=== PATIENT | male | born 1960 | race African-American/Black ===

== ENCOUNTER 2017-03-08 09:59 | Inpatient (IN) | payer OTHER ==
[2017-03-08 10:12] VITALS: BMI 25.1
--- NOTE | 2017-03-08 10:26 | PDOC ---
Attending Attestation - HPI HPI: 03/08/17 11:13 The patient is a 56 year old male from [facility] with a significant PMH of diabetes with associated neuropathy who presents to the emergency department with a ulcer to the right foot. The patient notes developing a pimple on his right foot a few weeks ago while in [facility]. He notes we was given Amoxicillin by his doctor in [facility]. The patient notes increased right lower leg swelling within the past week. He also reports having a fever a few days ago which has resolved upon presentation. The patient has been here in the [place] for about one week after coming from [facility]. Allergies: NKA - Physicial Exam PE: 03/08/17 12:08 GENERAL: Awake, alert, and fully oriented, in no acute distress HEAD: No signs of trauma EYES: PERRLA, EOMI, sclera anicteric, conjunctiva clear ENT: Auricles normal inspection, hearing grossly normal, nares patent, oropharynx clear without exudates. Moist mucosa NECK: Normal ROM, supple, no lymphadenopathy, JVD, or masses LUNGS: Breath sounds equal, clear to auscultation bilaterally. No wheezes, and no crackles HEART: (+) Tachycardic. Regular rate and rhythm, normal S1 and S2, no murmurs, rubs or gallops ABDOMEN: Soft, nontender, normoactive bowel sounds. No guarding, no rebound. No masses EXTREMITIES: (+) Right leg below knee hot, tender, cellulitic, erythematous, with pitting edema. (+) Wound on plantar surface underneath the right big toe with associated eschar that fell off after being soaked by home nurse, no drainage. (+) Wound to anterior aspect of right foot at first MTP with purulent drainage. (+) Destruction of tissue between first and second toes, foul smelling odor. (+) Left foot missing big toe secondary to diabetic foot infection. (+) Decreased sensation to toes secondary to diabetic neuropathy. Normal range of motion No clubbing or cyanosis. NEUROLOGICAL: Cranial nerves II through XII grossly intact. Normal speech. SKIN: Warm, Dry, normal turgor, no rashes or lesions noted. <Osmar Nj - Last Filed: 03/08/17 12:08> - Resident Resident Name: Rodriguez Toth - ED Attending Attestation I have performed the following: I have examined & evaluated the patient, The case was reviewed & discussed with the resident, I agree w/resident's findings & plan, Exceptions are as noted - Medical Decision Making 03/08/17 10:25 I, Dr. Sybil Neri, DO, attest that this document has been prepared under my direction and personally reviewed by me in its entirety. I further attest, that it accurately reflects all work, treatment, procedures and medical decision -making performed by me. 03/08/17 12:21 a/p: 56yo male with R foot diabetic foot wound -subjective fevers at home had amoxicillin in [place] -has been in [place] 6 [place] -drainage from wound -LE cellulitis from foot to knee -will start broad spectrum abx -will send cultures -will need admission 03/08/17 13:47 pt with poss osteo on xray diabetic foot wound will need admission for IV abx and further eval <Sybil Neri - Last Filed: 03/08/17 13:47>
[2017-03-08] MEDS ORDERED: PIPERACILLIN/TAZOB 3.375 GM/50 ML PRE-DOCKED IV ONE (11:12)
[2017-03-08] MEDS ORDERED: VANCOMYCIN 1,000 MG in DEXTROSE 5%-WATER - 250 ML IVPB ONE ×2 (11:13→22:45)
[2017-03-08] MEDS ORDERED: SODIUM CHLORIDE 0.9% 1000 ML INFUS.BAG IV ONE ×4 (11:34→13:51)
[2017-03-08] MEDS ORDERED: VANCOMYCIN 1 GRAM (PRE-DOCKED) 1,000 MG/250 ML BAG IVPB ONE (11:35)
[2017-03-08] MEDS ORDERED: PIPERACILLIN/TAZOB 3.375 GM 3.375 GM/50 ML BAG IVPB ONE (11:35)
[2017-03-08 11:50] LABS: BASO % 0.4 % (0-2.0); EOS % 0.9 % (0-4.5); HEMATOCRIT 35.4 % (35.4-49); HEMOGLOBIN 11.4 GM/dL (11.7-16.9); LYMPH % 23.9 % (8-40); MCH 25.7 pg (25.7-33.7); MCHC 32.2 g/dl (32.0-35.9); MEAN CELL VOLUME 79.8 fl (80-96); MEAN PLT VOLUME 7.9 fl (7.5-11.1); MONO % 7.4 % (3.8-10.2); NEUT % 67.4 % (42.8-82.8); PLATELET COUNT 290 K/MM3 (134-434); RBC 4.44 M/mm3 (4.00-5.60); RDW 13.3 % (11.9-15.9); WHITE BLOOD COUNT 9.3 K/mm3 (4.0-10.0)
--- NOTE | 2017-03-08 12:06 | PDOC ---
History of Present Illness - General Chief Complaint: Wound Infection Stated Complaint: FOOT ULCERS Time Seen by Provider: 03/08/17 10:17 History Source: Patient, Care Provider - History of Present Illness Initial Comments: 03/08/17 11:59 The patient is a 56M with a PMH of DM and HTN who presents to the ED with an infected wound. The care provider is translating and provides some of the history. She states that the patient had a pimple at the bottom of his foot around 3 weeks ago. He was given amoxicillin in [place] (moved here 1 week ago). Since then, he states that his foot has worsened. He has 2 sores on his foot. He has no other complaints. He denies CP, SOB, fever, chills, nausea, vomiting. Past History - Past Medical History Allergies/Adverse Reactions: Allergies Allergy/AdvReac Type Severity Reaction Status Date / Time No Known Allergies Allergy Verified 03/08/17 10:06 Home Medications: Ambulatory Orders Metformin HCl 500 mg PO BID 03/08/17 COPD: No Diabetes: Yes HTN: Yes - Suicide/Smoking/Psychosocial Hx Smoking History: Never smoked Information on smoking cessation initiated: No Hx Alcohol Use: No Drug/Substance Use Hx: No Substance Use Type: None Review of Systems - Review of Systems Able to Perform ROS?: Yes Comments:: 03/08/17 12:03 GENERAL/CONSTITUTIONAL: No fever or chills. No weakness. HEAD, EYES, EARS, NOSE AND THROAT: No change in vision. No ear pain or discharge. No sore throat. GASTROINTESTINAL: No nausea, vomiting, diarrhea, constipation, or abdominal pain. GENITOURINARY: No dysuria, frequency, hematuria, or change in urination. CARDIOVASCULAR: No chest pain, palpitations, or lightheadedness. RESPIRATORY: No cough, wheezing, shortness of breath, or hemoptysis. MUSCULOSKELETAL: No joint or muscle swelling or pain. No neck or back pain. SKIN: Positive for 2 ulcers on his R foot. NEUROLOGIC: No headache, numbness, tingling, weakness, loss of consciousness, or change in strength/sensation. ENDOCRINE: No increased thirst. No abnormal weight change. HEMATOLOGIC/LYMPHATIC: No anemia, easy bleeding, or history of blood clots. ALLERGIC/IMMUNOLOGIC: No hives or skin allergy. Is the patient limited Lao proficient: Yes *Physical Exam - Vital Signs Last Vital Signs Temp Pulse Resp BP Pulse Ox 97.9 F 90 19 165/117 100 03/08/17 10:03 03/08/17 10:03 03/08/17 10:03 03/08/17 10:03 03/08/17 10:03 - Physical Exam Comments: 03/08/17 12:03 GENERAL: Well developed, well nourished. Awake and alert. No acute distress. HEENT: Normocephalic, atraumatic. Hearing grossly normal. Moist mucous membranes. PERRLA, EOMI. No conjunctival pallor. Sclera are non-icteric. Oropharynx is clear. NECK: Supple. Full ROM. No JVD. CARDIOVASCULAR: Regular rate and rhythm. No murmurs, rubs, or gallops. Distal pulses are 2+ and symmetric. PULMONARY: No evidence of respiratory distress. Lungs clear to auscultation bilaterally. No wheezing, rales or rhonchi. ABDOMINAL: Soft. Non-tender. Non-distended. No rebound or guarding. No organomegaly. Normoactive bowel sounds. MUSCULOSKELETAL: Normal range of motion at all joints. No bony deformities or tenderness. EXTREMITIES: No cyanosis. No clubbing. No edema. No calf tenderness. SKIN: 1.5 cm stage 2 ulcer on plantar aspect of R foot. R foot warm to touch. Stage 1 ulcer on dorsal surface of R big toe. Vascularly intact. Warm and dry. Normal capillary refill. No rashes. No jaundice. NEUROLOGICAL: Alert, awake, appropriate. Decreased sensation in LE bilaterally. Cranial nerves 2-12 intact. Normal speech. Gait is normal without ataxia. PSYCHIATRIC: Cooperative. Good eye contact. Appropriate mood and affect. ED Treatment Course - LABORATORY CBC & Chemistry Diagram: 03/08/17 11:35 03/08/17 11:35 - ADDITIONAL ORDERS Additional order review: 03/08/17 11:35 RBC 4.44 MCV 79.8 L MCHC 32.2 RDW 13.3 MPV 7.9 Neutrophils % 67.4 Lymphocytes % 23.9 Monocytes % 7.4 Eosinophils % 0.9 Basophils % 0.4 - RADIOLOGY Radiology Studies Ordered: Category Date Time Status FOOT-RIGHT [RAD] Stat Radiology 03/08/17 11:12 Ordered - Medications Given in the ED: ED Medications Discontinued Medications Generic Name Dose Route Start Last Admin Trade Name Freq PRN Reason Stop Dose Admin Sodium Chloride 1,000 ml 03/08/17 11:34 03/08/17 11:44 Normal Saline - IV 03/08/17 11:35 1,000 ml ONCE ONE Administration Medical Decision Making - Medical Decision Making 03/08/17 12:06 The patient is a 56M with a PMH of DM and HTN who presents to the ED with 2 ulcers, one of which is at least stage 2 on the plantar surface of his R foot. He has a high likelihood of cellulitis. Will order labs, blood cx, and give broad spectrum abx. Will admit to med/surg once his labs come back. 03/08/17 13:[address] Mendoza accepts admission. Will continue to fluid resuscitate. *DC/Admit/Observation/Transfer Diagnosis at time of Disposition: Diabetic foot ulcer Qualifiers: Diabetic foot ulcer location: other Diabetes mellitus type: type 2 Laterality: right Non-pressure ulcer stage: with bone involvement without evidence of necrosis Qualified Code(s): E11.621 - Type 2 diabetes mellitus with foot ulcer - Discharge Dispostion Condition at time of disposition: Stable Admit: Yes - Referrals - Patient Instructions - Post Discharge Activity
[2017-03-08 12:14] LABS: ALBUMIN 3.2 g/dl (3.4-5.0); ALK PHOS 129 U/L (45-117); ANION GAP 7 (8-16); BILIRUBIN,TOTAL 0.4 mg/dL (0.2-1.0); BLOOD UREA NITROGEN 19 mg/dL (7-18); CALCIUM 8.6 mg/dL (8.5-10.1); CHLORIDE 93 mmol/L (98-107); CO2 28 mmol/L (21-32); CREATININE 1.3 mg/dL (0.7-1.3); POTASSIUM 5.5 mmol/L (3.5-5.1); SGOT/AST 18 U/L (15-37); SGPT/ALT 22 U/L (12-78); SODIUM 128 mmol/L (136-145); TOT PROT 8.7 g/dl (6.4-8.2)
[2017-03-08 12:26] LABS: GLUCOSE,RANDOM 457 mg/dL (74-106)
[2017-03-08] MEDS ORDERED: SODIUM CHLORIDE 1,000 ML IV STA (15:38)
--- NOTE | 2017-03-08 16:39 | HP ---
CHIEF COMPLAINT: PCP: None HISTORY OF PRESENT ILLNESS: The pt is speaks Creole. History is taken from family at bedside who translated the conversation. The pt is a 56 year old male with a PMH of DM II, diabetic neuropathy who presents to the hospital complaining of non healing wound in his right foot. He noticed small wound 3 weeks ago and was treated in [place] with Amoxicillin. He recently (week ago) came to [facility]. He states that he was not compliant with taking antibiotic. He had infection in left foot in the past (3 years) ago that resulted in amputation of left toe. The pt states that when he came from [facility] he experienced chills for one day. Today he is feeling well. He denies pain in lower extremities, fever, chills. He denies chest pain, palpitations, dizziness. ER course was notable for: (1)x ray of right foot (2)zosyn, vankomycin (3)ns Recent Travel: yes [place] week ago PAST MEDICAL HISTORY: DMII PAST SURGICAL HISTORY: left toe amputation 2013 Social History: Smoking:denies Alcohol:denies Drugs:denies Family History: Father:healthy, alive Mother: healthy, alive Allergies No Known Allergies Allergy (Verified 03/08/17 10:06) HOME MEDICATIONS: Home Medications Medication Instructions Recorded Metformin HCl 500 mg PO BID 03/08/17 REVIEW OF SYSTEMS CONSTITUTIONAL: Absent: fever, chills, diaphoresis, generalized weakness, malaise, loss of appetite, weight change HEENT: Absent: rhinorrhea, nasal congestion, throat pain, throat swelling, difficulty swallowing, mouth swelling, ear pain, eye pain, visual changes CARDIOVASCULAR: Absent: chest pain, syncope, palpitations, irregular heart rate, lightheadedness , peripheral edema RESPIRATORY: Absent: cough, shortness of breath, dyspnea with exertion, orthopnea, wheezing, stridor, hemoptysis GASTROINTESTINAL: Absent: abdominal pain, abdominal distension, nausea, vomiting, diarrhea, constipation, melena, hematochezia GENITOURINARY: Absent: dysuria, frequency, urgency, hesitancy, hematuria, flank pain, genital pain MUSCULOSKELETAL: Absent: myalgia, arthralgia, joint swelling, back pain, neck pain SKIN: Absent: rash, itching, pallor HEMATOLOGIC/IMMUNOLOGIC: Absent: easy bleeding, easy bruising, lymphadenopathy, frequent infections ENDOCRINE: Absent: unexplained weight gain, unexplained weight loss, heat intolerance, cold intolerance NEUROLOGIC: decreased sensation on right foot Absent: headache, focal weakness or paresthesias, dizziness, unsteady gait, seizure, mental status changes, bladder or bowel incontinence PSYCHIATRIC: Absent: anxiety, depression, suicidal or homicidal ideation, hallucinations. PHYSICAL EXAMINATION Vital Signs - 24 hr 03/08/17 03/08/17 10:03 15:00 Temperature 97.9 F Pulse Rate 90 Pulse Rate [ 91 H Radial] Respiratory 19 20 Rate Blood Pressure 165/117 Blood Pressure 162/99 [Left Arm] O2 Sat by Pulse 100 100 Oximetry (%) GENERAL: Awake, alert, and fully oriented, in no acute distress. HEAD: Normal with no signs of trauma. EYES: Pupils equal, round and reactive to light, extraocular movements intact, sclera anicteric, conjunctiva clear. No lid lag. EARS, NOSE, THROAT: Ears normal, nares patent, oropharynx clear without exudates. Moist mucous membranes. NECK: Normal range of motion, supple without lymphadenopathy, JVD, or masses. LUNGS: Breath sounds equal, clear to auscultation bilaterally. No wheezes, and no crackles. No accessory muscle use. HEART: Regular rate and rhythm, normal S1 and S2, systolic murmur over right sternal border, rub or gallop. ABDOMEN: Soft, nontender, not distended, normoactive bowel sounds, no guarding, no rebound, no masses. No hepatomegaly or splenomegaly. MUSCULOSKELETAL: Normal range of motion at all joints. No bony deformities or tenderness. No CVA tenderness. UPPER EXTREMITIES: 2+ pulses, warm, well-perfused. No cyanosis. No clubbing. No peripheral edema. LOWER EXTREMITIES: 2+ pulses, warm, well-perfused. No calf tenderness. 1+ peripheral edema, right foot: 1.5 ulcer on dorsum o right toe, flactuate, and 2 cm ulcer the bottom of right foot, near toe which is open, minimal draining with clear yellow fluid. No redness, no tenderness to palpation. NEUROLOGICAL: Normal speech, no facial asymmetry, normal gait, sensation decreased in rle, motor 5/5. PSYCHIATRIC: Cooperative. Good eye contact. Appropriate mood and affect. SKIN: Warm, dry, normal turgor, no rashes . Laboratory Results - last 24 hr 03/08/17 03/08/17 11:35 11:35 WBC 9.3 RBC 4.44 Hgb 11.4 L Hct 35.4 MCV 79.8 L MCH 25.7 MCHC 32.2 RDW 13.3 Plt Count 290 MPV 7.9 Neutrophils % 67.4 Lymphocytes % 23.9 Monocytes % 7.4 Eosinophils % 0.9 Basophils % 0.4 Sodium 128 L Potassium 5.5 H Chloride 93 L Carbon Dioxide 28 Anion Gap 7 L BUN 19 H Creatinine 1.3 Creat Clearance w eGFR 57.31 Random Glucose 457 H* Calcium 8.6 Total Bilirubin 0.4 AST 18 ALT 22 Alkaline Phosphatase 129 H Total Protein 8.7 H Albumin 3.2 L ASSESSMENT/PLAN: This is a 56 year old male with PMH of DM II and neuropathy who presented with diabetic ulcer and was found to have osteomyelitis. Osteomyelitis; -due to diabetic ulcer that was treated with Amoxicillin -wound culture ordered -Zosyn and Vancomycin-ID consulted -f/u blood cultures -X ray revealed osteomyelitis -continue NS at rate 100 cc/hr -contact isolation -MRI of right foot ordered -podiatry consultation ordered DM: -ISS ACHS -BGM ACHS -HGA1C -hold Metformin Hyponatremia: -will continue fluids, probably due to hyperglycemia Heart murmur: -will obtain ECHO Hypertension: found to have elevated BP in ER denies history of HTN will monitor DVT PPX: SCDs Heparin Sq Disposition: med surg Family friend Haleigh contact nr [phone] Problem List - Problem (1) Diabetic ulcer of ankle associated with diabetes mellitus due to underlying condition Code(s): E08.622 - DIABETES DUE TO UNDERLYING CONDITION W OTH SKIN ULCER; L97.309 - NON-PRESSURE CHRONIC ULCER OF UNSP ANKLE WITH UNSP SEVERITY (2) Diabetic foot ulcer Code(s): E11.621 - TYPE 2 DIABETES MELLITUS WITH FOOT ULCER; L97.509 - NON- PRESSURE CHRONIC ULCER OTH PRT UNSP FOOT W UNSP SEVERITY Qualifiers: Qualified Code(s): E11.621 - Type 2 diabetes mellitus with foot ulcer; L97.516 - Non-pressure chronic ulcer of other part of right foot with bone involvement without evidence of necrosis; L97.516 - Non-pressure chronic ulcer of other part of right foot with bone involvement without evidence of necrosis (3) Osteomyelitis Code(s): M86.9 - OSTEOMYELITIS, UNSPECIFIED Visit type - Emergency Visit Emergency Visit: Yes ED Registration Date: 03/08/17 Care time: The patient presented to the Emergency Department on the above date and was hospitalized for further evaluation of their emergent condition. - New Patient This patient is new to me today: Yes Date on this admission: 03/08/17 - Critical Care Critical Care patient: No
[2017-03-08] MEDS: SODIUM CHLORIDE 1,000 ML IV SCH (18:36)
[2017-03-08] MEDS: INSULIN SLIDING SCALE (NOVOLOG) 1 VIAL SQ SCH ×2 (18:36→22:59)
[2017-03-08] MEDS: HEPARIN NA (PORCINE) 5,000 UNITS/ML 1ML VIAL SQ SCH (18:38)
--- NOTE | 2017-03-08 18:43 | PN ---
Teaching Attending Note Name of Resident: Christiane Pretty ATTENDING PHYSICIAN STATEMENT I saw and evaluated the patient. I reviewed the resident's note and discussed the case with the resident. I agree with the resident's findings and plan as documented. SUBJECTIVE: 56 yom with PMHx of NIDDM (?Control), left great toe amputation 3 years ago, recently coming from [facility] comes with right foot swelling/redness/foul smelling discharge around right great toe and ulcer on plantar area that started as a pimple few weeks ago, when was prescribed amoxicillin but didnt really comply. Now here with worsening foot symptoms, subjective fevers, found with Blood glucose 400s and foot exam suggestive of abscess with cellulitis and xray suggestive of osteomyelitis. Patient currently denies pain, fevers. 12 point ROS done, neg for headache or visual symptoms, dizziness, dyspnea. OBJECTIVE: Vital Signs Period Temp Pulse Resp BP Sys/Borrero Pulse Ox Last 24 Hr 97.9 F 90-91 19-20 162-165/99-117 100-100 Intake & Output 03/05/17 03/06/17 03/07/17 03/08/17 23:59 23:59 23:59 23:59 Weight 170 lb GENERAL: Awake, alert, and fully oriented, in no acute distress. HEAD: Normal with no signs of trauma. EYES: Pupils equal, round and reactive to light, extraocular movements intact, sclera anicteric, conjunctiva clear. No lid lag. EARS, NOSE, THROAT: Ears normal, nares patent, oropharynx clear without exudates. Moist mucous membranes. NECK: Normal range of motion, supple without lymphadenopathy, JVD, or masses. LUNGS: Breath sounds equal, clear to auscultation bilaterally. No wheezes, and no crackles. No accessory muscle use. HEART: Regular rate and rhythm, normal S1 and S2 ABDOMEN: Soft, nontender, not distended, normoactive bowel sounds, no guarding, no rebound, no masses. No hepatomegaly or splenomegaly. MUSCULOSKELETAL: Normal range of motion at all joints. No bony deformities or tenderness. No CVA tenderness. extremities: LLE left great toe amputation RLE- fluctant swelling over right great toe with superficial ulceration with mild serosanguinous discharge with surrounding swelling extending over dorsu, of right foot, non on lower leg, skin excoriation over lower leg, also 2 cm stage I ulceration with scant foul smelling serosanguinous discharge on ball of right great toe, strong DP pulses bilaterally NEUROLOGICAL: Cranial nerves II-XII intact. Normal speech. PSYCHIATRIC: Cooperative. Good eye contact. Appropriate mood and affect. SKIN: Warm, dry, normal turgor, no rashes or lesions noted, normal capillary refill. Home Medication List Medication Instructions Recorded Confirmed Type Metformin HCl 500 mg PO BID 03/08/17 03/08/17 History Active Medications Generic Name Dose Route Start Last Admin Trade Name Imani PRN Reason Stop Dose Admin Heparin Sodium (Porcine) 5,000 unit 03/08/17 18:00 03/08/17 18:38 Heparin - SQ 5,000 unit Q8H-IV MONTEZ Administration Sodium Chloride 1,000 mls @ 100 mls/hr 03/08/17 15:45 03/08/17 18:36 Normal Saline - IV 100 mls/hr ASDIR MONTEZ Administration Insulin Aspart 1 vial 03/08/17 16:30 03/08/17 18:36 Novolog Vial Sliding Scale - SQ 10 units ACHS MONTEZ Administration Protocol Insulin Detemir 5 units 03/08/17 22:00 Levemir Vial SQ HS MONTEZ Laboratory Results - last 24 hr 03/08/17 03/08/17 03/08/17 11:35 11:35 18:00 WBC 9.3 RBC 4.44 Hgb 11.4 L Hct 35.4 MCV 79.8 L MCH 25.7 MCHC 32.2 RDW 13.3 Plt Count 290 MPV 7.9 Neutrophils % 67.4 Lymphocytes % 23.9 Monocytes % 7.4 Eosinophils % 0.9 Basophils % 0.4 Sodium 128 L Potassium 5.5 H Chloride 93 L Carbon Dioxide 28 Anion Gap 7 L BUN 19 H Creatinine 1.3 Creat Clearance w eGFR 57.31 POC Glucometer 392 Random Glucose 457 H* Calcium 8.6 Total Bilirubin 0.4 AST 18 ALT 22 Alkaline Phosphatase 129 H Total Protein 8.7 H Albumin 3.2 L CXR - no acute process Right foot xray - right foot air and swelling, cannot r/o osteomyelitis ASSESSMENT AND PLAN: 56 yom with NIDDM, comes with Right diabetic foot ulcer and cellulitis and likely osteomyelitis. -Diabetic foot ulcer with abscess/cellulitis, likely osteomyelitis -NIDDM, ?control -Uncontrolled HTN -Pseudohyponatremia -Hyperkalemia, suspect from severe hyperglycemia and extracellular shift Plan: zosyn/vancomycin, wound cultures. MRI right foot, ID consult Dr. Calle Podiatry consult Dr. Oconnell (office called) Blood cultures if fevers. Anticipate with need I&D with debridement +/- amputation. Monitor hemodynamics closely for now. ISS, check A1c, low dose levemir 5 units hs Aggressive hydration. Repeat BMP later today Monitor BP, add anti-hypertensives as indicated. No pain concerns currently. DVTPPX with heparin Dispo pending resolution of symptoms. Anticipate atleast 4-5 days total admit time spent 45 min.
[2017-03-08] MEDS ORDERED: FLU VACCINE QUAD 60 MCG/0.5 ML (MDV 17-18) IM ONE (19:30)
--- NOTE | 2017-03-08 21:20 | PN ---
Progress Note (short form) - Note Progress Note: Foul smelling infected DFU right foot with communication from dorsal abscess to plantar submetatarsal head one wound. Operative report dictated. Performed bedside incision and drainage and obtained pus for C & S. Performed procedure as this was an emergency and requested to do so but unable to continue care throughout this hospitalization as I am going away. Hospitalist service aware and was told he may need further debridement this week by another surgeon. Patient and situation currently stable at he time of this dictation and after the I and D.
[2017-03-08] MEDS ORDERED: PIPERACILLIN/TAZOB 4.5 GM 4.5 GM in DEXTROSE 5%-WATER - 100 ML IVPB ONE (22:45)
[2017-03-08] MEDS: INSULIN DETEMIR 100 UNITS/ML MDV SQ SCH (23:01)
[2017-03-09 01:54] LABS: ALBUMIN 2.6 g/dl (3.4-5.0); ALK PHOS 86 U/L (45-117); ANION GAP 6 (8-16); BILIRUBIN,TOTAL 0.3 mg/dL (0.2-1.0); BLOOD UREA NITROGEN 15 mg/dL (7-18); CALCIUM 8.1 mg/dL (8.5-10.1); CHLORIDE 103 mmol/L (98-107); CO2 29 mmol/L (21-32); CREATININE 1.2 mg/dL (0.7-1.3); GLUCOSE,RANDOM 150 mg/dL (74-106); POTASSIUM 4.9 mmol/L (3.5-5.1); SGOT/AST 11 U/L (15-37); SGPT/ALT 18 U/L (12-78); SODIUM 138 mmol/L (136-145)
[2017-03-09] MEDS: HEPARIN NA (PORCINE) 5,000 UNITS/ML 1ML VIAL SQ SCH ×3 (02:50→18:24)
[2017-03-09] MEDS: INSULIN SLIDING SCALE (NOVOLOG) 1 VIAL SQ SCH ×4 (06:41→21:25)
[2017-03-09] MEDS: SODIUM CHLORIDE 1,000 ML IV SCH ×2 (07:50→18:20)
[2017-03-09 08:20] LABS: BASO % 0.5 % (0-2.0); HEMATOCRIT 27.6 % (35.4-49); HEMOGLOBIN 8.8 GM/dL (11.7-16.9); LYMPH % 26.4 % (8-40); MCH 25.3 pg (25.7-33.7); MCHC 31.9 g/dl (32.0-35.9); MEAN CELL VOLUME 79.4 fl (80-96); MEAN PLT VOLUME 7.7 fl (7.5-11.1); MONO % 10.6 % (3.8-10.2); NEUT % 61.5 % (42.8-82.8); PLATELET COUNT 236 K/MM3 (134-434); RBC 3.48 M/mm3 (4.00-5.60); RDW 13.4 % (11.9-15.9); WHITE BLOOD COUNT 10.8 K/mm3 (4.0-10.0)
--- NOTE | 2017-03-09 08:44 | PN ---
Progress Note, Physician Chief Complaint: ID Full note dictated - Current Medication List Current Medications: Active Medications Heparin Sodium (Porcine) (Heparin -) 5,000 unit SQ Q8H-IV MONTEZ Last Admin: 03/09/17 02:50 Dose: 5,000 unit Sodium Chloride (Normal Saline -) 1,000 mls @ 100 mls/hr IV ASDIR MONTEZ Last Admin: 03/08/17 18:36 Dose: 100 mls/hr Insulin Aspart (Novolog Vial Sliding Scale -) 1 vial SQ ACHS MONTEZ PRN Reason: Protocol Last Admin: 03/09/17 06:41 Dose: Not Given Insulin Detemir (Levemir Vial) 5 units SQ HS MONTEZ Last Admin: 03/08/17 23:01 Dose: 5 units - Objective Vital Signs: Vital Signs Temperature 99.2 F 03/09/17 06:00 Pulse Rate 87 03/09/17 06:00 Respiratory Rate 18 03/09/17 06:00 Blood Pressure 122/96 03/09/17 06:00 O2 Sat by Pulse Oximetry (%) 100 03/08/17 21:00 Extremities: Yes: Other (Deep necrotic ulcerations wiath swelling warmth RLE) Labs: CBC, BMP 03/09/17 06:50 03/09/17 01:15 Assessment/Plan Microbiology Laboratory Tests 03/08/17 03/09/17 11:35 06:50 WBC 10.8 H Hgb 8.8 L D Plt Count 236 BUN 19 H Creatinine 1.3 Creat Clearance w eGFR 57.31 Total Protein 8.7 H Albumin 3.2 L Assessment Poorly controlled DM wit necrotic ulcerations of the right foot with cellulitis and underlying osteomyeltis Gas forming infection Plan Surgical evaluation for OR debridement Wound cultures CRP ESR HIV test Zosyn and metronidazole Luc VINSON
--- NOTE | 2017-03-09 09:35 | CONSULT ---
Consult - text type - Consultation Consultation Note: Patient seen in bed. Only speaks Cambodian. Patient admitted for infected right foot. Used interpeter. States he has been here for 1 week. Had a previous amputation on left big toe 3 years ago. Patient was admitted with a 457 glucose. Tmax 99.2 right foot grade 4-5 wound right foot, wbc 10.8, wound passes from dorsal to plantar, no drainage noted, +edema, xray reviewed no acute destructive changes noted, radiology recommended and has been ordered MRI. +mild foul odor OM? ganagarene gas? Discussed tx options with patient through associate professor of library science named Shakeel. Advised for debridement of bone and soft tissue with possible amoutation of toe. Wants to try conservative care of IVABX and local wound care till he speaks with his emergency contact. I have prepared consent form if patient decides they want to have debridement. Wound care betadine irrigation daily, xeroform gauze, and kerlix. Vascular consult, ID consult. Will follow. Read and appreciated Dr. Rain note. He Cultured wound right. Awaiting MRI. ESR , CRP and Hgba1c to be ordered.
--- NOTE | 2017-03-09 11:17 | PN ---
Progress Note (short form) - Note Progress Note: Vascular surgery Came to see pt in MRI Getting MRI at the moment. They are ruling out OM of great toe. Podiatry on the case for debridement and possible amputation. Will follow mri Thomas waterman dO
[2017-03-09] MEDS ORDERED: PT OWN MED DRAWER 7, Y5N ONE (12:28)
[2017-03-09] MEDS: PIPERACILLIN/TAZOB 4.5 GM 4.5 GM in DEXTROSE 5%-WATER - 100 ML IVPB SCH ×2 (12:35→21:21)
[2017-03-09] MEDS: METRONIDAZOLE 500 MG PREMIXED 500 MG/100 ML MG IVPB SCH ×3 (12:35→21:21)
--- NOTE | 2017-03-09 15:44 | PN ---
Teaching Attending Note Name of Resident: . ATTENDING PHYSICIAN STATEMENT Time of evaluation: 12:00 PM SUBJECTIVE: Patient seen and examined. No fevers/chills or new leg pain. OBJECTIVE: Vital Signs Period Temp Pulse Resp BP Sys/Borrero Pulse Ox Last 24 Hr 97.7 F-99.2 F 82-92 18-18 122-154/54-96 100-100 Intake & Output 03/06/17 03/07/17 03/08/17 03/09/17 23:59 23:59 23:59 23:59 Intake Total 750 600 Output Total 1300 Balance 750 -700 Weight 170 lb 6.4 oz General: sitting in bed in no acute distress Extremities: dressing, patient with incsion over dorum of great toe with foul smelling purulent discharge, mild bloody discharge at the incision site, overlying erythema and swelling till mid dorsum of the foot, Stage I ulcer with scant foul smelling purulent discahrge on ball of great toe, strong DP pulses, superficial ulceration heel of right foot Abdomen: soft, NT CVS;S1S2 regular Home Medication List Medication Instructions Recorded Confirmed Type Metformin HCl 500 mg PO BID 03/08/17 03/08/17 History Active Medications Generic Name Dose Route Start Last Admin Trade Name Freq PRN Reason Stop Dose Admin Heparin Sodium (Porcine) 5,000 unit 03/08/17 18:00 03/09/17 12:35 Heparin - SQ 5,000 unit Q8H-IV MONTEZ Administration Sodium Chloride 1,000 mls @ 100 mls/hr 03/08/17 15:45 03/09/17 07:50 Normal Saline - IV 100 mls/hr ASDIR MONTEZ Administration Piperacillin Sod/Tazobactam 100 mls @ 200 mls/hr 03/09/17 10:00 03/09/17 12: 35 Sod 4.5 gm/ Dextrose IVPB 200 mls/hr Q8H-IV MONTEZ Administration Protocol Metronidazole 500 mg in 100 mls @ 100 mls/hr 03/09/17 09:00 03/09/17 15:42 Flagyl 500mg Premixed Ivpb - IVPB 100 mls/hr Q6H-IV MONTEZ Administration Insulin Aspart 1 vial 03/08/17 16:30 03/09/17 12:34 Novolog Vial Sliding Scale - SQ Not Given ACHS MONTEZ Protocol Insulin Detemir 5 units 03/08/17 22:00 03/08/17 23:01 Levemir Vial SQ 5 units HS MONTEZ Administration Laboratory Results - last 24 hr 03/08/17 03/08/17 03/09/17 18:00 22:57 01:15 WBC RBC Hgb Hct MCV MCH MCHC RDW Plt Count MPV Neutrophils % Lymphocytes % Monocytes % Eosinophils % Basophils % ESR Sodium 138 Potassium 4.9 Chloride 103 D Carbon Dioxide 29 Anion Gap 6 L BUN 15 D Creatinine 1.2 Creat Clearance w eGFR > 60 POC Glucometer 392 94 Random Glucose 150 H D Hemoglobin A1c % Calcium 8.1 L Total Bilirubin 0.3 D AST 11 L D ALT 18 Alkaline Phosphatase 86 D C-Reactive Protein Total Protein 7.0 Albumin 2.6 L HIV 1&2 Antibody Screen HIV P24 Antigen 03/09/17 03/09/17 03/09/17 06:40 06:50 06:50 WBC 10.8 H RBC 3.48 L D Hgb 8.8 L D Hct 27.6 L D MCV 79.4 L MCH 25.3 L MCHC 31.9 L RDW 13.4 Plt Count 236 MPV 7.7 Neutrophils % 61.5 Lymphocytes % 26.4 Monocytes % 10.6 H Eosinophils % 1.0 Basophils % 0.5 ESR Sodium Potassium Chloride Carbon Dioxide Anion Gap BUN Creatinine Creat Clearance w eGFR POC Glucometer 150 Random Glucose Hemoglobin A1c % 12.6 H Calcium Total Bilirubin AST ALT Alkaline Phosphatase C-Reactive Protein Total Protein Albumin HIV 1&2 Antibody Screen HIV P24 Antigen 03/09/17 03/09/17 03/09/17 09:35 09:35 12:18 WBC RBC Hgb Hct MCV MCH MCHC RDW Plt Count MPV Neutrophils % Lymphocytes % Monocytes % Eosinophils % Basophils % ESR 127 H Sodium Potassium Chloride Carbon Dioxide Anion Gap BUN Creatinine Creat Clearance w eGFR POC Glucometer Random Glucose Hemoglobin A1c % Calcium Total Bilirubin AST ALT Alkaline Phosphatase C-Reactive Protein 11.9 H Total Protein Albumin HIV 1&2 Antibody Screen Negative HIV P24 Antigen Negative 03/09/17 12:33 WBC RBC Hgb Hct MCV MCH MCHC RDW Plt Count MPV Neutrophils % Lymphocytes % Monocytes % Eosinophils % Basophils % ESR Sodium Potassium Chloride Carbon Dioxide Anion Gap BUN Creatinine Creat Clearance w eGFR POC Glucometer 148 Random Glucose Hemoglobin A1c % Calcium Total Bilirubin AST ALT Alkaline Phosphatase C-Reactive Protein Total Protein Albumin HIV 1&2 Antibody Screen HIV P24 Antigen Microbiology 03/08/17 21:00 Foot - Right Dorsum Gram Stain - Final 03/08/17 18:50 Foot - Right Plantar Gram Stain - Final 03/08/17 11:34 Blood - Peripheral Venous Blood Culture - Preliminary NO GROWTH OBTAINED AFTER 24 HOURS, INCUBATION TO CONTINUE FOR 4 DAYS. 03/08/17 11:34 Blood - Peripheral Venous Blood Culture - Preliminary NO GROWTH OBTAINED AFTER 24 HOURS, INCUBATION TO CONTINUE FOR 4 DAYS. ASSESSMENT AND PLAN: 56 yom with NIDDM, comes with Right diabetic foot ulcer and cellulitis and likely osteomyelitis. -Diabetic foot ulcer with abscess/cellulitis/Great toe osteomyelitis -NIDDM, ?control -Uncontrolled HTN -Pseudohyponatremia -Hyperkalemia, suspect from severe hyperglycemia and extracellular shift, resolved Plan: s/p Emergent I&D by Dr. Rain yesterday, he is away this week. Dr. Murray consulted. ID input noted, zosyn/flagyl. WOund gm stain noted, discussed with Dr. Calle, will give 1 dose of vancomycin 1.5 g now. MRI right foot noted, ostemyelitis and gas forming organism,ID and podiatry updated on the results. Primary contact ivktoria called, discussed about current situation and patient waiting to speak to her to decide on surgical plans, need debridement and likely amputation great toe. She is coming in today, will follow up. Place on diabetic diet for now, NPO post midnight in case. Blood cultures if fevers. Monitor hemodynamics closely for now. ISS, check A1c, low dose levemir 5 units hs IVF. Repeat BMP later today Monitor BP, add anti-hypertensives as indicated. No pain concerns currently. DVTPPX with heparin Dispo pending resolution of symptoms.
[2017-03-09] MEDS ORDERED: VANCOMYCIN 1,500 MG in DEXTROSE 5%-WATER - 500 ML IVPB ONE (15:57)
--- NOTE | 2017-03-09 17:09 | EKG ---
Test Reason : Blood Pressure : / mmHG Vent. Rate : 085 BPM Atrial Rate : 085 BPM P-R Int : 138 ms QRS Dur : 068 ms QT Int : 340 ms P-R-T Axes : 055 024 031 degrees QTc Int : 404 ms NORMAL SINUS RHYTHM NONSPECIFIC T WAVE ABNORMALITY ABNORMAL ECG NO PREVIOUS ECGS AVAILABLE Confirmed by DARCY DONOVAN MD ([id number]) on 03/09/2017 5:09:05 PM Referred By: Confirmed By:DARCY DONOVAN MD
--- NOTE | 2017-03-09 18:05 | CONS ---
DATE OF CONSULTATION: DATE OF DICTATION: 03/09/2017 This is a 56-year-old Creole-speaking man from [facility] who I am asked to see for a diabetic soft tissue infection of his right foot. He apparently has a known history of type 2 diabetes with neuropathy and came to the emergency room complaining of a nonhealing wound on his right foot. He says he noticed this 3 weeks ago and was apparently treated in [facility] at that time with amoxicillin. He has no obvious fever or chills and does have a history of an infection in the left foot that resulted in amputation of a toe 3 years ago. According to the notes, he has had chills now for about a day and I am asked to see him after an extensive wound was noted on the right foot. He was given a dose of vancomycin, piperacillin, tazobactam by the admitting physicians. PAST MEDICAL HISTORY: As noted above. SOCIAL HISTORY: Denies drug use, alcohol. [place] immigrant. FAMILY HISTORY: Noncontributory. REVIEW OF SYSTEMS: All systems reviewed and noncontributory. PHYSICAL EXAMINATION: General: He was an alert male in no acute distress. Vital Signs: Temperature 99.2, pulse 87, blood pressure 122/96, respirations 18. Neck: Supple without adenopathy. Lungs: Clear to percussion and auscultation. Heart: S1, S2, regular rhythm without audible murmur. Abdomen: Soft, nontender, not distended. No guarding or rebound, hepatomegaly. Extremities: Revealed a warm, swollen right lower extremity with 2 ulcers, one on the ventral surface of the great toe as well as a 2-cm ulcer on the plantar right metatarsal area, both of which appear necrotic with foul-smelling drainage noted. The white count was 10.8 with hemoglobin 8.8, platelets of 236. BUN 19, creatinine 1.3, glucose 456. Alkaline phosphatase 129, total protein 8.7, albumin 3.2. X-ray of the chest shows no acute pathology. X-ray of the foot shows loss of bone density in the medial aspect distal 1st metatarsal, soft tissue disruption at the base of the metatarsals on the lateral view and soft tissue air noted. ASSESSMENT: Gas gangrene with 2 deep necrotic ulcers, obviously infected involving the right great toe and 1st metatarsal area. Gas-forming infection with probable polymicrobial organisms including anaerobes considered. Underlying osteomyelitis with cellulitis also likely. PLAN: The patient needs extensive OR debridement of the wounds and a surgical consult has been requested. He will be empirically treated with a combination of piperacillin, tazobactam and metronidazole. CRP, ESR and HIV testing should be performed and an MRI to confirm the diagnosis of osteomyelitis. BETTYE PADILLA M.D. HEIDE/[id number]
--- NOTE | 2017-03-09 19:43 | OP ---
DATE OF OPERATION: 03/08/2017 SURGEON : Dr. Kia Rain PROCEDURE: Bedside incision and drainage of an infected right diabetic foot ulceration. PREOPERATIVE DIAGNOSIS: Subfascial abscess right foot POSTOPERATIVE DIAGNOSIS: Subfascial abscess right foot. ANESTHESIA: None (patient insensate). CLINICAL INDICATIONS FOR PROCEDURE: The patient presented to the emergency department with a foul-smelling purulent right foot and an open plantar diabetic foot ulceration. The procedure is to evacuate as much pus as possible for adequate antimicrobial chemotherapy . PROCEDURE NARRATIVE: After prepping the patient in the usual manner, this procedure was performed at bedside. On the dorsal surface of the right great toe, there was pus exuding from the dorsal great toe. An incision was made into the purulent area. Communication was noted through the great toe into the plantar submetatarsal head one ulceration. All pus was evacuated. The wound was then copiously flushed with sterile water and iodoform packing was applied. DR. KIA RAIN RT/[id number] MTDD
[2017-03-09] MEDS: INSULIN DETEMIR 100 UNITS/ML MDV SQ SCH (21:25)
[2017-03-10] MEDS: SODIUM CHLORIDE 1,000 ML IV SCH (02:44)
[2017-03-10] MEDS: METRONIDAZOLE 500 MG PREMIXED 500 MG/100 ML MG IVPB SCH ×4 (02:45→21:15)
[2017-03-10] MEDS: PIPERACILLIN/TAZOB 4.5 GM 4.5 GM in DEXTROSE 5%-WATER - 100 ML IVPB SCH ×3 (02:45→17:56)
[2017-03-10] MEDS: HEPARIN NA (PORCINE) 5,000 UNITS/ML 1ML VIAL SQ SCH ×3 (02:45→18:00)
[2017-03-10] MEDS: INSULIN SLIDING SCALE (NOVOLOG) 1 VIAL SQ SCH ×4 (06:48→21:17)
[2017-03-10 08:23] LABS: BASO % 0.4 % (0-2.0); EOS % 1.7 % (0-4.5); HEMATOCRIT 28.6 % (35.4-49); HEMOGLOBIN 9.1 GM/dL (11.7-16.9); LYMPH % 33.2 % (8-40); MCH 25.5 pg (25.7-33.7); MCHC 31.8 g/dl (32.0-35.9); MEAN PLT VOLUME 7.7 fl (7.5-11.1); MONO % 10.4 % (3.8-10.2); NEUT % 54.3 % (42.8-82.8); PLATELET COUNT 251 K/MM3 (134-434); RBC 3.58 M/mm3 (4.00-5.60); RDW 13.2 % (11.9-15.9); WHITE BLOOD COUNT 8.5 K/mm3 (4.0-10.0)
[2017-03-10 08:31] LABS: ANION GAP 9 (8-16); BLOOD UREA NITROGEN 10 mg/dL (7-18); CALCIUM 7.6 mg/dL (8.5-10.1); CHLORIDE 105 mmol/L (98-107); CO2 26 mmol/L (21-32); MAGNESIUM 2.1 mg/dL (1.8-2.4); POTASSIUM 4.4 mmol/L (3.5-5.1); SODIUM 140 mmol/L (136-145)
[2017-03-10 08:34] LABS: CREATININE 1.2 mg/dL (0.7-1.3); GLUCOSE,RANDOM 157 mg/dL (74-106); PHOSPHOROUS 3.5 mg/dL (2.5-4.9)
--- NOTE | 2017-03-10 08:49 | PN ---
Physical Exam: SUBJECTIVE: Patient seen and examined by me at bedside. No overnight events noted. Patient yesterday gave consent on debridement with possible amputation. Compliance Auditor phone not working and was unable to get much information from patient. Will attempt to use epic ambulatory analyst phone again. OBJECTIVE: Vital Signs Period Temp Pulse Resp BP Sys/Borrero Pulse Ox Last 24 Hr 98.1 F-98.4 F 79-82 18-20 134-159/54-82 97 GENERAL: The patient is awake, alert, and fully oriented, in no acute distress. HEAD: Normal with no signs of trauma. NECK: Trachea midline, full range of motion, supple. LUNGS: Breath sounds equal, clear to auscultation bilaterally, no wheezes, no crackles, no accessory muscle use. HEART: Regular rate and rhythm without murmur, rub or gallop. ABDOMEN: Soft, nontender, nondistended, normoactive bowel sounds, no guarding, no rebound. EXTREMITIES: Dressing around right foot with purulent serosanguinous drainage. Laboratory Results - last 24 hr 03/09/17 03/09/17 03/09/17 06:50 09:35 09:35 WBC RBC Hgb Hct MCV MCH MCHC RDW Plt Count MPV Neutrophils % Lymphocytes % Monocytes % Eosinophils % Basophils % ESR POC Glucometer Hemoglobin A1c % 12.6 H C-Reactive Protein 11.9 H HIV 1&2 Antibody Screen Negative HIV P24 Antigen Negative 03/09/17 03/09/17 03/09/17 12:18 12:33 16:52 WBC RBC Hgb Hct MCV MCH MCHC RDW Plt Count MPV Neutrophils % Lymphocytes % Monocytes % Eosinophils % Basophils % ESR 127 H POC Glucometer 148 130 Hemoglobin A1c % C-Reactive Protein HIV 1&2 Antibody Screen HIV P24 Antigen 03/09/17 03/10/17 03/10/17 21:24 06:00 07:00 WBC 8.5 RBC 3.58 L Hgb 9.1 L Hct 28.6 L MCV 80.0 MCH 25.5 L MCHC 31.8 L RDW 13.2 Plt Count 251 MPV 7.7 Neutrophils % 54.3 Lymphocytes % 33.2 D Monocytes % 10.4 H Eosinophils % 1.7 Basophils % 0.4 ESR POC Glucometer 314 151 Hemoglobin A1c % C-Reactive Protein HIV 1&2 Antibody Screen HIV P24 Antigen Active Medications Generic Name Dose Route Start Last Admin Trade Name Freq PRN Reason Stop Dose Admin Heparin Sodium (Porcine) 5,000 unit 03/08/17 18:00 03/10/17 02:45 Heparin - SQ 5,000 unit Q8H-IV MONTEZ Administration Sodium Chloride 1,000 mls @ 100 mls/hr 03/08/17 15:45 03/10/17 02:44 Normal Saline - IV 100 mls/hr ASDIR MONTEZ Administration Piperacillin Sod/Tazobactam 100 mls @ 200 mls/hr 03/09/17 10:00 03/10/17 02: 45 Sod 4.5 gm/ Dextrose IVPB 200 mls/hr Q8H-IV MONTEZ Administration Protocol Metronidazole 500 mg in 100 mls @ 100 mls/hr 03/09/17 09:00 03/10/17 02:45 Flagyl 500mg Premixed Ivpb - IVPB 100 mls/hr Q6H-IV MONTEZ Administration Insulin Aspart 1 vial 03/08/17 16:30 03/10/17 06:48 Novolog Vial Sliding Scale - SQ 2 units ACHS MONTEZ Administration Protocol Insulin Detemir 5 units 03/08/17 22:00 03/09/17 21:25 Levemir Vial SQ Not Given HS MONTEZ ASSESSMENT/PLAN: Patient is a 56 year old male who presented for worsening right foot pain and ulceration. Patient was found to have osteomyelitis and admitted for further monitoring and management. Diabetic Foot Ulcer with Osteomyelitis of Right Great Toe -Emergent I&D on 03/08/17 -MRI revealed osteo with gas forming organisms. Patient initially refused surgical treatment but has now agreed to it -Will need debridement and likely amputation scheduled for tomorrow (03/11/17) -Continue Flagyl 500mg IVPB Q6H -Continue Zosyn 4.5mg ivpb q8h -Continue IV NS @100mls/hr DMII -A1C 12.6 -BGM -ISS, required 10 units in 24 hours -Levemir 5 units HS -Will need to be on Insulin upon discharge HTN -Patient currently undiagnosed with HTN -Has been elevated but currently controlled -Likely secondary to fluids vs. pain or component of both -Continue to monitor BP and if remains elevated will add on an agent Microcytic Anemia -Hemoglobin 11 to 9 since admission -Iron studies ordered -Continue to monitor CBC F/E/N -On IV NS @100mls/hr -Electrolytes wnl -Diabetic diet Prophylaxis -Moderate risk. Heparin 5000 units SQ Q8H for DVT -No GI required Disposition -Full code -Scheduled for debridement/amputation tomorrow 03/11/17. Will require another night of inpatient Visit type - Emergency Visit Emergency Visit: Yes ED Registration Date: 03/08/17 Care time: The patient presented to the Emergency Department on the above date and was hospitalized for further evaluation of their emergent condition. - New Patient This patient is new to me today: Yes Date on this admission: 03/10/17 - Critical Care Critical Care patient: No
[2017-03-10] MEDS ORDERED: PT OWN MED DRAWER 7, Y5N ONE (11:17)
[2017-03-10] MEDS ORDERED: INSULIN DETEMIR 100 UNITS/ML MDV SQ ONE (11:20)
[2017-03-10] MEDS ORDERED: INSULIN (NOVOLOG) ASPART 100 UNITS/ML 10ML VIAL ONE (11:20)
--- NOTE | 2017-03-10 14:03 | PN ---
Teaching Attending Note Name of Resident: Meghana Greene ATTENDING PHYSICIAN STATEMENT I saw and evaluated the patient. I reviewed the resident's note and discussed the case with the resident. I agree with the resident's findings and plan as documented. SUBJECTIVE:asymptomatic. has no pain in the foot. denies Cp, SOB, fever, chills , N/V/C/D OBJECTIVE: Last Vital Signs Temp Pulse Resp BP Pulse Ox 98.2 F 81 20 152/75 97 03/10/17 06:00 03/10/17 06:00 03/10/17 06:00 03/10/17 06:00 03/09/17 21:00 General NAD CV S1 S2 RRR no murmur/rub/gallop Lungs CTA B/L no wheezing/rales/rhonchi Abdomen soft NT/ND Extremities R foot wrapped. requested dressing not be changed as it was just done. +foul odor ASSESSMENT AND PLAN: 56 yo M with NIDDM, comes with Right diabetic foot ulcer and cellulitis and likely osteomyelitis. 1. R 1st digit OM with gas forming organism- asymptomatic. afebrile. pt initially refused surgery and was delayed. now pt is agreeable. NPO tonight for surgery tomorrow morning. on Flagyl/Zosyn day 2. ID, podiatry and vascular sugery on board. f/u cx 2. DM- uncontrolled. A1c 12.2. improved here. on levemir 5 units HS, iss. titrate to optimize control. nutritional teaching 3. Elevated BP - d/c IVF. monitor if remains elevated will need to start medication 4. hyperkalemia- resolved 5. pseudohyponatremia- resolved 6. DVT ppx- hep sq
[2017-03-10] MEDS: INSULIN DETEMIR 100 UNITS/ML MDV SQ SCH (21:17)
[2017-03-11] MEDS: HEPARIN NA (PORCINE) 5,000 UNITS/ML 1ML VIAL SQ SCH ×3 (03:06→17:44)
[2017-03-11] MEDS: PIPERACILLIN/TAZOB 4.5 GM 4.5 GM in DEXTROSE 5%-WATER - 100 ML IVPB SCH ×2 (03:06→10:50)
[2017-03-11] MEDS: METRONIDAZOLE 500 MG PREMIXED 500 MG/100 ML MG IVPB SCH ×2 (03:06→08:53)
[2017-03-11 06:06] LABS: SERUM IRON SATURATION 25 % (15-55); TOTAL IRON BINDING CAPACITY 164 ug/dL (250-450); UIBC 123 ug/dL (111-343)
[2017-03-11] MEDS: INSULIN SLIDING SCALE (NOVOLOG) 1 VIAL SQ SCH ×4 (06:41→23:17)
[2017-03-11 08:19] LABS: HEMOGLOBIN 10.1 GM/dL (11.7-16.9); MCH 25.4 pg (25.7-33.7); MCHC 31.6 g/dl (32.0-35.9); MEAN CELL VOLUME 80.4 fl (80-96); MEAN PLT VOLUME 7.4 fl (7.5-11.1); PLATELET COUNT 284 K/MM3 (134-434); RBC 3.98 M/mm3 (4.00-5.60); RDW 13.9 % (11.9-15.9); WHITE BLOOD COUNT 7.4 K/mm3 (4.0-10.0)
[2017-03-11 08:40] LABS: ANION GAP 10 (8-16); BLOOD UREA NITROGEN 9 mg/dL (7-18); CALCIUM 8.9 mg/dL (8.5-10.1); CHLORIDE 103 mmol/L (98-107); CO2 26 mmol/L (21-32); CREATININE 1.2 mg/dL (0.7-1.3); GLUCOSE,RANDOM 153 mg/dL (74-106); POTASSIUM 4.9 mmol/L (3.5-5.1); SODIUM 139 mmol/L (136-145)
[2017-03-11] MEDS ORDERED: BUPIVACAINE HCL/PF 0.5% (5MG/ML) 10 ML VIAL NR ONE (12:34)
[2017-03-11] MEDS ORDERED: LIDOCAINE HCL 1%, 10 MG/ML (20ML VIAL) NR ONE (12:34)
[2017-03-11] MEDS ORDERED: BACITRACIN 50,000 UNITS VIAL TP ONE (12:54)
--- NOTE | 2017-03-11 13:28 | PN ---
Progress Note, Physician Chief Complaint: ID Zosyn and metronidazole For OR today - Current Medication List Current Medications: Active Medications Heparin Sodium (Porcine) (Heparin -) 5,000 unit SQ Q8H-IV MONTEZ Last Admin: 03/11/17 09:06 Dose: Not Given Metronidazole (Flagyl 500mg Premixed Ivpb -) 500 mg in 100 mls @ 100 mls/hr IVPB Q6H-IV MONTEZ Last Admin: 03/11/17 08:53 Dose: 100 mls/hr Piperacillin Sod/Tazobactam (Sod 3.375 gm/ Dextrose) 100 mls @ 200 mls/hr IVPB Q6H-IV MONTEZ PRN Reason: Protocol Stop: 03/16/17 09:59 Insulin Aspart (Novolog Vial Sliding Scale -) 1 vial SQ ACHS MONTEZ PRN Reason: Protocol Last Admin: 03/11/17 10:50 Dose: Not Given Insulin Detemir (Levemir Vial) 5 units SQ HS MONTEZ Last Admin: 03/10/17 21:17 Dose: Not Given - Objective Vital Signs: Vital Signs Temperature 98.2 F 03/11/17 09:00 Pulse Rate 91 H 03/11/17 09:00 Respiratory Rate 18 03/11/17 09:00 Blood Pressure 169/96 03/11/17 09:00 O2 Sat by Pulse Oximetry (%) 100 03/10/17 21:00 Extremities: Yes: Other (Necrotic ulcers of the foot fould smelling Cellulitis) Labs: CBC, BMP 03/11/17 06:35 03/11/17 06:35 Assessment/Plan Microbiology Laboratory Tests 03/09/17 03/09/17 03/10/17 09:35 12:18 07:00 WBC Hgb Hct Plt Count ESR 127 H 99 H C-Reactive Protein 11.9 H 03/11/17 06:35 WBC 7.4 Hgb 10.1 L D Hct 32.0 L Plt Count 284 ESR C-Reactive Protein Assessment Diabetic foot ulcers polymicrobial as suspected on Zosyn which is fine Underlying osteomyelitis Plan Continue Zosyn alone Surgery today Luc VINSON
[2017-03-11 14:14] LABS: TRANSFERRIN 146 mg/dL (200-370)
[2017-03-11] MEDS: PIPERACILLIN/TAZOB 3.375 GM 3.375 GM in DEXTROSE 5%-WATER - 100 ML IVPB SCH ×2 (15:53→22:56)
--- NOTE | 2017-03-11 16:27 | PN ---
Teaching Attending Note Name of Resident: Leslie Logan ATTENDING PHYSICIAN STATEMENT I saw and evaluated the patient. I reviewed the resident's note and discussed the case with the resident. I agree with the resident's findings and plan as documented. SUBJECTIVE:states he has intermittent pain. unable to specify if at rest or on movement. dnies CP, SOB< fever, chills, N/V/CD OBJECTIVE: Last Vital Signs Temp Pulse Resp BP Pulse Ox 98.2 F 91 H 18 169/96 100 03/11/17 09:00 03/11/17 09:00 03/11/17 09:00 03/11/17 09:00 03/10/17 21:00 General NAD CV S1 S2 RRR no murmur/rub/gallop Lungs CTA B/L no wheezing/rales/rhonchi Abdomen soft NT/ND Extremities R foot with dorsum aspect with 2x3 cm ulcer with pus drainage below 2digit. 2nd digit has large ulceraction with boggy appearance along the medial aspect no crepitance. +active drainage. unable to palpate bone. pulses intact. ASSESSMENT AND PLAN: 56 yo M with NIDDM, comes with Right diabetic foot ulcer and cellulitis and likely osteomyelitis. 1. R 1st digit OM with gas forming organism-NPO for OR today for amputation. surgery delayed as pt initiatially refusing. Wcx showing polymicrobial. on Flagyl/Zosyn day 3. flagyl now d/c. will liekly require rat exterminator abx will need to speak with podiatry regarding margins on bx. ID, podiatry and vascular sugery on board. f/u cx 2. DM- uncontrolled. A1c 12.2. improved here. on levemir 5 units HS, iss. titrate to optimize control. nutritional teaching 3. HTN- consistently elevated BP. does not seem pain induced. start lisinopril 10mg 4. hyperkalemia- resolved 5. pseudohyponatremia- resolved 6. DVT ppx- hep sq
[2017-03-11 16:56] LABS: ERYTHROCYTE SEDIMENTATION RATE 100 mm/hr (0-20)
[2017-03-11 17:00] LABS: HEMATOCRIT 30.9 % (35.4-49); HEMOGLOBIN 10.1 GM/dL (11.7-16.9); MCH 26.1 pg (25.7-33.7); MCHC 32.8 g/dl (32.0-35.9); MEAN CELL VOLUME 79.7 fl (80-96); MEAN PLT VOLUME 7.7 fl (7.5-11.1); PLATELET COUNT 297 K/MM3 (134-434); RBC 3.87 M/mm3 (4.00-5.60); RDW 13.7 % (11.9-15.9); WHITE BLOOD COUNT 6.3 K/mm3 (4.0-10.0)
[2017-03-11] MEDS: LISINOPRIL 10 MG TABLET (FP) PO SCH (17:45)
[2017-03-11] MEDS ORDERED: ACETAMINOPHEN 325 MG TABLET (FP) PO PRN (18:20)
[2017-03-11] MEDS ORDERED: morphine CARPU-JECT 2 MG/1 ML DISP.SYRIN IVPUSH PRN (18:21)
--- NOTE | 2017-03-11 18:24 | PN ---
Physical Exam: SUBJECTIVE: Patient seen and examined. Pt c/o pain to Right great toe, but does not grimace upon palpation. Pt prepared for amputation procedure today. Pt denies chest pain, sob, fever, chills, nausea, vomiting, constipation, diarrhea. No events overnight. OBJECTIVE: Vital Signs Period Temp Pulse Resp BP Sys/Borrero Pulse Ox Last 24 Hr 97.7 F-98.5 F 74-91 18-20 153-169/83-98 100-100 GENERAL: The patient is awake, alert, and fully oriented, in no acute distress. LUNGS: Breath sounds equal, clear to auscultation bilaterally, no wheezes, no crackles, no accessory muscle use. HEART: Regular rate and rhythm, S1, S2 without murmur, rub or gallop. ABDOMEN: Soft, nontender, nondistended. EXTREMITIES: Right great toe dorsum aspect with 2 x 3 cm ulcer with drainage below 2nd digit. Ulceration to plantar aspect of foot with boggy appearance. No crepitus appreciated. 2+ pulses, warm, well-perfused, no edema. PSYCH: Normal mood, normal affect. SKIN: Warm, dry, normal turgor, no rashes Laboratory Results - last 24 hr 03/10/17 03/10/17 03/10/17 12:00 17:58 21:16 WBC RBC Hgb Hct MCV MCH MCHC RDW Plt Count MPV ESR Sodium Potassium Chloride Carbon Dioxide Anion Gap BUN Creatinine POC Glucometer 174 134 Random Glucose Calcium Iron 41 TIBC 164 L Iron Saturation 25 Transferrin 146 L C-Reactive Protein 03/11/17 03/11/17 03/11/17 06:35 06:35 06:40 WBC 7.4 RBC 3.98 L Hgb 10.1 L D Hct 32.0 L MCV 80.4 MCH 25.4 L MCHC 31.6 L RDW 13.9 Plt Count 284 MPV 7.4 L ESR Sodium 139 Potassium 4.9 Chloride 103 Carbon Dioxide 26 Anion Gap 10 BUN 9 Creatinine 1.2 POC Glucometer 158 Random Glucose 153 H Calcium 8.9 Iron TIBC Iron Saturation Transferrin C-Reactive Protein 03/11/17 03/11/17 14:10 14:10 WBC 6.3 RBC 3.87 L Hgb 10.1 L Hct 30.9 L MCV 79.7 L MCH 26.1 MCHC 32.8 RDW 13.7 Plt Count 297 MPV 7.7 ESR 100 H Sodium Potassium Chloride Carbon Dioxide Anion Gap BUN Creatinine POC Glucometer Random Glucose Calcium Iron TIBC Iron Saturation Transferrin C-Reactive Protein 6.6 H D Active Medications Generic Name Dose Route Start Last Admin Trade Name Freq PRN Reason Stop Dose Admin Heparin Sodium (Porcine) 5,000 unit 03/08/17 18:00 03/11/17 17:44 Heparin - SQ 5,000 unit Q8H-IV MONTEZ Administration Piperacillin Sod/Tazobactam 100 mls @ 200 mls/hr 03/11/17 15:00 03/11/17 15: 53 Sod 3.375 gm/ Dextrose IVPB 03/16/17 09:59 200 mls/hr Q6H-IV MONTEZ Administration Protocol Insulin Aspart 1 vial 03/08/17 16:30 03/11/17 17:44 Novolog Vial Sliding Scale - SQ Not Given ACHS MONTEZ Protocol Insulin Detemir 5 units 03/08/17 22:00 03/10/17 21:17 Levemir Vial SQ Not Given HS MONTEZ Lisinopril 10 mg 03/11/17 16:30 03/11/17 17:45 Prinivil PO 10 mg DAILY MONTEZ Administration IMAGIN03/11/17 Echo -> Left ventricular size, thickness, and function normal. ASSESSMENT/PLAN: 56yo M with PMH of NIDDM, presents with Right diabetic foot ulcer and cellulitis /osteomyelitis. # Right great toe osteomyelitis - s/p amputation - f/u with Podiatry regarding margins on biopsy - f/u wound culture - ID (Dr. Calle) recs appreciated: continue IV Zosyn only (Day 3) - pain management with Morphine prn and Tylenol prn # NIDDM - hgba1c 12.6 - BGMs - Novolog SSI - Levemir 5U HS - Dietary Consult # htn - Lisinopril 10mg started # FEN - Fluids: po - Electrolytes: wnl, continue to monitor - Nutrition: diabetic diet # Prophylaxis - DVT ppx with Heparin Visit type - Emergency Visit Emergency Visit: Yes ED Registration Date: 03/08/17 Care time: The patient presented to the Emergency Department on the above date and was hospitalized for further evaluation of their emergent condition. - New Patient This patient is new to me today: Yes Date on this admission: 03/11/17 - Critical Care Critical Care patient: No
[2017-03-11] MEDS: INSULIN DETEMIR 100 UNITS/ML MDV SQ SCH (23:17)
[2017-03-12] MEDS ORDERED: PROCHLORPERAZINE INJECTION 10 MG/2 ML VIAL IM PRN (01:32)
[2017-03-12] MEDS: HEPARIN NA (PORCINE) 5,000 UNITS/ML 1ML VIAL SQ SCH ×3 (01:50→17:25)
[2017-03-12] MEDS: PIPERACILLIN/TAZOB 3.375 GM 3.375 GM in DEXTROSE 5%-WATER - 100 ML IVPB SCH ×4 (02:04→22:32)
[2017-03-12] MEDS ORDERED: ONDANSETRON 4 MG/2 ML VIAL IVPUSH ONE (02:38)
[2017-03-12] MEDS: INSULIN SLIDING SCALE (NOVOLOG) 1 VIAL SQ SCH ×4 (06:25→22:44)
[2017-03-12 09:14] LABS: HEMOGLOBIN 9.9 GM/dL (11.7-16.9); MCH 25.3 pg (25.7-33.7); MEAN CELL VOLUME 79.2 fl (80-96); MEAN PLT VOLUME 7.4 fl (7.5-11.1); PLATELET COUNT 301 K/MM3 (134-434); RBC 3.91 M/mm3 (4.00-5.60); RDW 13.9 % (11.9-15.9); WHITE BLOOD COUNT 10.2 K/mm3 (4.0-10.0)
[2017-03-12] MEDS: LISINOPRIL 10 MG TABLET (FP) PO SCH (11:12)
--- NOTE | 2017-03-12 14:52 | PN ---
Teaching Attending Note Name of Resident: Leslie Logan ATTENDING PHYSICIAN STATEMENT I saw and evaluated the patient. I reviewed the resident's note and discussed the case with the resident. I agree with the resident's findings and plan as documented. SUBJECTIVE:c/o pain at surgical site. denies CP, SOB, fever, chills, N/V/C/D OBJECTIVE: Last Vital Signs Temp Pulse Resp BP Pulse Ox 98.1 F 82 18 150/90 99 03/12/17 10:00 03/12/17 10:00 03/12/17 13:44 03/12/17 10:00 03/12/17 13:44 General NAD Extremities R foot wrapped in dressing c/d/i ASSESSMENT AND PLAN: 56 yo M with NIDDM, comes with Right diabetic foot ulcer and cellulitis and likely osteomyelitis. 1. R 1st digit OM with gas forming organism-s/p 1st digit amputation 03/11. encouraged to request pain medication as available. await cx. speak with podiatry about need for shelter abx therapy. on Zosyn day 4. f/u cx 2. DM- A1c 12.2. improved here. on levemir 5 units HS, iss. titrate to optimize control. nutritional teaching 3. HTN-above goal. start norvasc. cont lisinopril. titrate to optimize control 4. hyperkalemia- resolved 5. pseudohyponatremia- resolved 6. DVT ppx- hep sq
[2017-03-12] MEDS ORDERED: PT OWN MED DRAWER 7, Y5N ONE (16:09)
[2017-03-12] MEDS: amLODIPine BESYLATE 5 MG TABLET (FP) PO SCH (16:29)
--- NOTE | 2017-03-12 16:52 | MSN ---
Progress Note (short form) - Note Progress Note: Subjective: Yudy Ybarra is a 56 year old male with past medical history of diabetes who presented to the ED with right foot ulcer. Patient was admitted for right foot abscess with cellulitis and possible osteomyelitis. Patient seen and examined. Patient states that last night he had 4 episodes of vomiting s/p great toe amputation. Patient reports green emesis without any blood. He states that the last episode of vomiting was at 4am. The vomiting resolved after he was given zofran and Compazine. Patient states that he is currently feeling better. Patient reports pain in the right foot due to surgery. Patient also reports pain in the left lateral heel but state's it has been chronic. Patient currently denies nausea, headache, chest pain, palpitations, SOB, dizziness. Objective: Last Vital Signs Temp Pulse Resp BP Pulse Ox 98.3 F 82 16 140/70 99 03/12/17 15:33 03/12/17 15:33 03/12/17 15:33 03/12/17 15:33 03/12/17 13:44 Physical Exam: Gen: A&Ox3, well-appearing, in no acute distress Heart: RRR without MRG Lungs; CTA bilaterally without RRW Abdomen: soft, non-tender, non-distended, bowel sounds present and normoactive Extremities: no pitting edema in bilateral lower extremities Right lower extremity: warm to touch, R foot wrapped in dressing due to right great toe amputation yesterday Left lower extremity: DP pulse palpable and 2+, left great toe amputated a long time ago, no ulcers noted on left foot, plantar aspect of the foot very dry , no discoloration Laboratory Results - last 24 hr 03/11/17 03/11/17 03/11/17 14:10 17:44 23:16 WBC 6.3 RBC 3.87 L Hgb 10.1 L Hct 30.9 L MCV 79.7 L MCH 26.1 MCHC 32.8 RDW 13.7 Plt Count 297 MPV 7.7 ESR 100 H POC Glucometer 137 242 03/12/17 03/12/17 03/12/17 06:10 07:10 11:25 WBC 10.2 H D RBC 3.91 L Hgb 9.9 L Hct 31.0 L MCV 79.2 L MCH 25.3 L MCHC 32.0 RDW 13.9 Plt Count 301 MPV 7.4 L ESR POC Glucometer 222 195 Current Medications Generic Name Dose Route Start Last Admin Trade Name Freq PRN Reason Stop Dose Admin Acetaminophen 650 mg 03/11/17 18:20 03/11/17 20:47 Tylenol - PO 650 mg Q4H PRN Administration FEVER OR PAIN Amlodipine Besylate 5 mg 03/12/17 14:00 03/12/17 16:29 Norvasc - PO 5 mg DAILY MONTEZ Administration Heparin Sodium (Porcine) 5,000 unit 03/08/17 18:00 03/12/17 11:12 Heparin - SQ 5,000 unit Q8H-IV MONTEZ Administration Piperacillin Sod/Tazobactam 100 mls @ 200 mls/hr 03/11/17 15:00 03/12/17 16: 29 Sod 3.375 gm/ Dextrose IVPB 03/16/17 09:59 200 mls/hr Q6H-IV MONTEZ Administration Protocol Insulin Aspart 1 vial 03/08/17 16:30 03/12/17 11:32 Novolog Vial Sliding Scale - SQ 2 units ACHS MONTEZ Administration Protocol Insulin Detemir 5 units 03/08/17 22:00 03/11/17 23:17 Levemir Vial SQ 5 units HS MONTEZ Administration Lisinopril 10 mg 03/11/17 16:30 03/12/17 11:12 Prinivil PO 10 mg DAILY MONTEZ Administration Morphine Sulfate 2 mg 03/11/17 18:21 03/12/17 11:13 Morphine Injection - IVPUSH 2 mg Q4H PRN Administration PAIN Prochlorperazine Edisylate 5 mg 03/12/17 01:32 03/12/17 01:50 Compazine Injection - IM 5 mg Q4H PRN Administration NAUSEA AND/OR VOMITING Home Medications Medication Instructions Recorded Metformin HCl 500 mg PO BID 03/08/17 A/P: Yudy Ybarra is a 56 yo M with PMHx of DM who presented to the ED with right foot ulcer. Patient was admitted for right foot abscess with cellulitis and possible osteomyelitis. 1. Right great toe wound with osteomyelitis - R toe wound secondary to DM, with osteomyelitis - Wound culture was positive for Morganella, Proteus, Group D strep, Presumptive MSSA, Strep viridans - Patient is now s/p right great toe amputation, POD 1, dressing will be changed today - Zosyn Q6H 100mls @200 mls/hr- Day 4 - Pain control with Morphine and Tylenol 650 mg PRN - Wound culture negative for growth after surgery - Will talk to podiatry about mcc antibiotics - Patient currently does not have insurance, will need to consider that when deciding on antibiotic therapy 2. DM - Hold Metformin - Levemir 5U HS - Novolog 1 vial SQ - BGM - Currently on DM diet 3. HTN - Patient denies history of HTN, but BP has been consistently elevated - Lisinopril 10 mg PO daily was started yesterday, BP still elevated today - Will add Norvasc 5 mg - Continue to monitor BP 4. DVT Porph - Heparin 5000U SQ TID Dispo: Will continue to monitor.
--- NOTE | 2017-03-12 18:57 | PN ---
Physical Exam: SUBJECTIVE: Patient seen and examined. Pt c/o pain at surgical site on Right foot. Pt denies chest pain, sob, abdominal pain, fever, chills, constipation, diarrhea. Pt was vomiting overnight, relieved with Compazine. OBJECTIVE: Vital Signs Period Temp Pulse Resp BP Sys/Borrero Pulse Ox Last 24 Hr 97.7 F-98.6 F 70-82 16-20 135-155/70-91 99-100 GENERAL: The patient is awake, alert, and fully oriented, in no acute distress. LUNGS: Breath sounds equal, clear to auscultation bilaterally, no wheezes, no crackles, no accessory muscle use. HEART: Regular rate and rhythm, S1, S2 without murmur, rub or gallop. ABDOMEN: Soft, nontender, nondistended. EXTREMITIES: Right foot wrapped in dressing CDI. Left LE warm, well-perfused, no edema. PSYCH: Normal mood, normal affect. SKIN: Warm, dry, normal turgor, no rashes Laboratory Results - last 24 hr 03/11/17 03/12/17 03/12/17 23:16 06:10 07:10 WBC 10.2 H D RBC 3.91 L Hgb 9.9 L Hct 31.0 L MCV 79.2 L MCH 25.3 L MCHC 32.0 RDW 13.9 Plt Count 301 MPV 7.4 L POC Glucometer 242 222 03/12/17 03/12/17 11:25 17:23 WBC RBC Hgb Hct MCV MCH MCHC RDW Plt Count MPV POC Glucometer 195 133 Active Medications Generic Name Dose Route Start Last Admin Trade Name Freq PRN Reason Stop Dose Admin Acetaminophen 650 mg 03/11/17 18:20 03/11/17 20:47 Tylenol - PO 650 mg Q4H PRN Administration FEVER OR PAIN Amlodipine Besylate 5 mg 03/12/17 14:00 03/12/17 16:29 Norvasc - PO 5 mg DAILY MONTEZ Administration Heparin Sodium (Porcine) 5,000 unit 03/08/17 18:00 03/12/17 17:25 Heparin - SQ 5,000 unit Q8H-IV MONTEZ Administration Piperacillin Sod/Tazobactam 100 mls @ 200 mls/hr 03/11/17 15:00 03/12/17 16: 29 Sod 3.375 gm/ Dextrose IVPB 03/16/17 09:59 200 mls/hr Q6H-IV MONTEZ Administration Protocol Insulin Aspart 1 vial 03/08/17 16:30 03/12/17 17:24 Novolog Vial Sliding Scale - SQ Not Given ACHS MONTEZ Protocol Insulin Detemir 5 units 03/08/17 22:00 03/11/17 23:17 Levemir Vial SQ 5 units HS MONTEZ Administration Lisinopril 10 mg 03/11/17 16:30 03/12/17 11:12 Prinivil PO 10 mg DAILY MONTEZ Administration Morphine Sulfate 2 mg 03/11/17 18:21 03/12/17 11:13 Morphine Injection - IVPUSH 2 mg Q4H PRN Administration PAIN Prochlorperazine Edisylate 5 mg 03/12/17 01:32 03/12/17 01:50 Compazine Injection - IM 5 mg Q4H PRN Administration NAUSEA AND/OR VOMITING ASSESSMENT/PLAN: 56yo M with PMH of NIDDM, presents with Right diabetic foot ulcer and cellulitis /osteomyelitis. # Right great toe osteomyelitis, s/p Right great toe amputation on 03/11/17 - POD 1 - f/u with Podiatry regarding margins on biopsy - wound culture (-) x 24 hrs per preliminary report - ID (Dr. Calle) recs appreciated: continue IV Zosyn only (Day 4) - pain management with Morphine prn and Tylenol prn - pt encouraged to take pain medication if needed # NIDDM - hgba1c 12.6 - BGMs - Novolog SSI - Levemir 5U HS - Dietary Consult # htn - continue Lisinopril - Norvasc 5mg started # FEN - Fluids: po - Electrolytes: wnl, continue to monitor - Nutrition: diabetic diet # Prophylaxis - DVT ppx with Heparin Visit type - Emergency Visit Emergency Visit: Yes ED Registration Date: 03/08/17 Care time: The patient presented to the Emergency Department on the above date and was hospitalized for further evaluation of their emergent condition. - New Patient This patient is new to me today: No - Critical Care Critical Care patient: No
[2017-03-12] MEDS: INSULIN DETEMIR 100 UNITS/ML MDV SQ SCH (22:33)
[2017-03-13] MEDS: PIPERACILLIN/TAZOB 3.375 GM 3.375 GM in DEXTROSE 5%-WATER - 100 ML IVPB SCH ×2 (02:00→09:59)
[2017-03-13] MEDS: HEPARIN NA (PORCINE) 5,000 UNITS/ML 1ML VIAL SQ SCH ×3 (02:00→17:21)
[2017-03-13] MEDS: INSULIN SLIDING SCALE (NOVOLOG) 1 VIAL SQ SCH ×4 (06:31→21:20)
[2017-03-13] MEDS ORDERED: INSULIN DETEMIR 100 UNITS/ML MDV SQ ONE (07:52)
[2017-03-13] MEDS ORDERED: INSULIN (NOVOLOG) ASPART 100 UNITS/ML 10ML VIAL ONE ×3 (07:52→20:37)
[2017-03-13 08:02] LABS: HEMATOCRIT 32.6 % (35.4-49); HEMOGLOBIN 10.3 GM/dL (11.7-16.9); MCH 25.4 pg (25.7-33.7); MCHC 31.5 g/dl (32.0-35.9); MEAN CELL VOLUME 80.5 fl (80-96); MEAN PLT VOLUME 7.2 fl (7.5-11.1); PLATELET COUNT 293 K/MM3 (134-434); RBC 4.05 M/mm3 (4.00-5.60); WHITE BLOOD COUNT 7.1 K/mm3 (4.0-10.0)
[2017-03-13] MEDS ORDERED: PT OWN MED DRAWER 7, Y5N ONE (09:07)
--- NOTE | 2017-03-13 09:43 | OP ---
DATE OF OPERATION: 03/11/2017 SURGEON: Trevor Slater DPM [employer] CUST[employer]ER SERVICE REPRESENTATIVE: Zaida Cooney PREOPERATIVE DIAGNOSIS: Right foot infection. POSTOPERATIVE DIAGNOSIS: Right foot infection. PROCEDURE: Debridement of infected and necrotic bone and soft tissue. ANESTHESIA: MAC with sedation with local anesthetic. HEMOSTASIS: Pneumatic ankle tourniquet was applied, but not inflated. Bovie was on table, but not used. ESTIMATED BLOOD LOSS: 20 mL. MATERIALS: 3-0 nylon. INJECTABLES: 19 mL of 1:1 preoperative injection. COMPLICATIONS: None. DESCRIPTION OF PROCEDURE: The patient was brought to the operating room and placed on the operating table in the supine position. A well-padded pneumatic ankle tourniquet was applied to the patient's right ankle. Following initiation of IV sedation, a 1:1 mixture of lidocaine 1% plain and Marcaine 0.5% plain was infiltrated throughout the surgical site. The foot was then scrubbed, prepped, and draped in the usual aseptic manner. Next, attention was drawn to the patient's right foot where necrotic soft tissue and exposed bone was visible on the hallux of the right foot. Surgical planning was taken to leave all viable plantar skin to be used as a flap. The viability of the bone and soft tissue was inspected and all viable tissue was left. First the necrotic tip of the hallux was removed and the dorsal margin back to the proximal phalanx was removed. Using the sagittal saw, the proximal phalanx was resected at the level of the shaft and passed from the operative field. At this time, the bone was inspected and the remaining proximal phalanx was found to be necrotic and it was decided that this portion of bone should be removed too. Using sharp dissection , the proximal phalanx remaining was disarticulated from the 1st MTP joint and passed from the operative field. All remaining necrotic, nonviable tissue was resected and passed from the operative field. Using pulsed lavage, the surgical site was copiously flushed with normal saline. The surgical site was partially closed using retention sutures and the remaining area that was open was packed with plain packing. Xeroform was applied to the sutures and dorsal wound. Then, 4 x 4 gauze, Kerlix, and abdominal pads were applied. An Juni bandage was applied to the patient's right foot. The tourniquette was not utilized. The patient was transferred to the recovery room with all vital signs stable and neurovascular status intact to the patient's right lower extremity. Following a period of postoperative monitoring, the patient was discharged to the floor for further medical care. SEEMA Garcia/[id number] MTDD
[2017-03-13] MEDS: LISINOPRIL 10 MG TABLET (FP) PO SCH (09:58)
[2017-03-13] MEDS: amLODIPine BESYLATE 5 MG TABLET (FP) PO SCH (09:58)
--- NOTE | 2017-03-13 11:19 | CONSULT ---
Consult - text type - Consultation Consultation Note: Patient seen in bed. VSS. Tma 98.3F dressing clean dry and intact, +packing intact, -mal odor, +retention sutures intact normal post op Needs home IVABX. VNS. Local wound care. Currently betadine dressing change daily. ID has made recommendations. Awaiting PICC line. Dressing change done. Packing pulled. Will follow till DC.
[2017-03-13] MEDS ORDERED: CEFTRIAXONE 2 GM in DEXTROSE 5%-WATER - 100 ML IVPB SCH (13:00)
[2017-03-13] MEDS: CEFTRIAXONE IN IS-OSM DEXTROSE 2 GM/50 ML BAG IVPB SCH (13:35)
[2017-03-13] MEDS: metroNIDAZOLE 250 MG TABLET PO SCH ×2 (13:35→21:17)
--- NOTE | 2017-03-13 14:12 | PATH ---
Surgical Pathology Report Patient Name: TALIB COLE Med. Rec. #: [id number] /Age/Gender: 1960 (Age: 56) / M Account: [id number] Location: [facility] MED/SURG Taken: 03/11/2017 Received: 03/12/2017 Reported: 03/13/2017 Physicians: SEEMA Garcia M.D. Specimen(s) Received RIGHT BIG TOE Clinical History Diabetic foot ulcer Final Diagnosis FOOT, HALLUX (BIG TOE), RIGHT, AMPUTATION: HALLUX WITH MARKED ACUTE AND CHRONIC GANGRENOUS INFLAMMATION AND ULCERATION. ACUTE OSTEOMYELITIS. SOFT TISSUE AND BONE SURGICAL MARGINS ARE INVOLVED BY INFLAMMATION AND ACUTE OSTEOMYELITIS. Electronically Signed Maisha Heller M.D. Gross Description Received in formalin labeled "right big toe," is a 4.8 x 3.3 x 3.0 cm toe amputation. The epidermal surface displays a 3.0 x 2.5 cm ulcerated, necrotic lesion involving the skin and soft tissue margin. The lesion extends to and possibly involves the underlying bone. There are 2 separately received additional portions of bone within the same container. The separately received portions of bone measure 1.5 x 0.8 x 0.8 cm and 2.0 x 1.8 x 1.8 cm. Tractor [employer]ic Apprentice sections are submitted in 5 cassettes as follows: 1-lesion with underlying bone, following decalcification; 2-bone margin, following decalcification; 3-skin and soft tissue margin; 4-section from smaller separately received portion of bone, following decalcification; 5-section from larger separately received portion of bone, following decalcification. 03/12/201703/12/2017
--- NOTE | 2017-03-13 15:53 | PN ---
Teaching Attending Note Name of Resident: Leslie Logan ATTENDING PHYSICIAN STATEMENT I saw and evaluated the patient. I reviewed the resident's note and discussed the case with the resident. I agree with the resident's findings and plan as documented. SUBJECTIVE:pain is controlled. denies Cp, SOB, fever, chills, N/V/C/D OBJECTIVE: Last Vital Signs Temp Pulse Resp BP Pulse Ox 97.9 F 71 20 134/63 99 03/13/17 14:01 03/13/17 14:01 03/13/17 14:01 03/13/17 14:01 03/13/17 09:00 General NAD Extremities R foot wrapped in dressing c/d/i ASSESSMENT AND PLAN: 56 yo M with NIDDM, comes with Right diabetic foot ulcer and cellulitis and likely osteomyelitis. 1. R 1st digit OM with gas forming organism-s/p 1st digit amputation 03/11. encouraged to request pain medication as available. will need long term care pharmacist abx therapy. awaiting ID to put final abx selection. on Zosyn day 4. f/u cx 2. DM- A1c 12.2. improved here. on levemir 5 units HS, iss. titrate to optimize control. nutritional teaching 3. HTN-controlled. cont lisinopril and norvasc. titrate to optimize control 4. hyperkalemia- resolved 5. pseudohyponatremia- resolved 6. DVT ppx- hep sq 7. pt is clinically optimized for discharge. however pt is undocumented and does not have insurance. SW aware and looking for ways for pt to pay for abx therapy. medicaid pending
--- NOTE | 2017-03-13 17:41 | MSN ---
Progress Note (short form) - Note Progress Note: Subjective: Yudy Ybarra is a 56 year old male with past medical history of diabetes who presented to the ED with right foot ulcer. Patient was admitted for right foot abscess with cellulitis and possible osteomyelitis. Patient seen and examined. Patient denies any complaints today except for right foot pain due to surgery. Patient states that he is feeling better. Patient currently denies nausea, headache, chest pain, palpitations, SOB, dizziness. Objective: Last Vital Signs Temp Pulse Resp BP Pulse Ox 97.9 F 71 20 134/63 99 03/13/17 14:01 03/13/17 14:01 03/13/17 14:01 03/13/17 14:01 03/13/17 09:00 Physical Exam: Gen: A&Ox3, well-appearing, in no acute distress Heart: RRR without MRG Lungs; CTA bilaterally without RRW Abdomen: soft, non-tender, non-distended, bowel sounds present and normoactive Extremities: no pitting edema in bilateral lower extremities Right lower extremity: warm to touch, R foot wrapped in dressing due to right great toe amputation yesterday Left lower extremity: DP pulse palpable and 2+, left great toe amputated a long time ago, no ulcers noted on left foot, plantar aspect of the foot very dry , no discoloration Laboratory Results - last 24 hr 03/12/17 03/12/17 03/13/17 17:23 22:36 06:09 WBC RBC Hgb Hct MCV MCH MCHC RDW Plt Count MPV POC Glucometer 133 234 143 C-Reactive Protein 03/13/17 03/13/17 03/13/17 06:24 08:00 11:21 WBC 7.1 D RBC 4.05 Hgb 10.3 L Hct 32.6 L MCV 80.5 MCH 25.4 L MCHC 31.5 L RDW 14.0 Plt Count 293 MPV 7.2 L POC Glucometer 242 C-Reactive Protein 4.7 H D Current Medications Generic Name Dose Route Start Last Admin Trade Name Freq PRN Reason Stop Dose Admin Acetaminophen 650 mg 03/11/17 18:20 03/11/17 20:47 Tylenol - PO 650 mg Q4H PRN Administration FEVER OR PAIN Amlodipine Besylate 5 mg 03/12/17 14:00 03/13/17 09:58 Norvasc - PO 5 mg DAILY MONTEZ Administration Heparin Sodium (Porcine) 5,000 unit 03/08/17 18:00 03/13/17 17:21 Heparin - SQ 5,000 unit Q8H-IV MONTEZ Administration CEFTRIAXONE IN IS-OSM DEXTROSE 2 gm in 50 mls @ 100 mls/hr 03/13/17 13:00 13:35 Ceftriaxone 2 Gm-D5w Bag IVPB 100 mls/hr DAILY MONTEZ Administration Insulin Aspart 1 vial 03/08/17 16:30 03/13/17 17:21 Novolog Vial Sliding Scale - SQ 2 units ACHS MONTEZ Administration Protocol Insulin Detemir 5 units 03/08/17 22:00 03/12/17 22:33 Levemir Vial SQ 5 units HS MONTEZ Administration Lisinopril 10 mg 03/11/17 16:30 03/13/17 09:58 Prinivil PO 10 mg DAILY MONTEZ Administration Metronidazole 500 mg 03/13/17 14:00 03/13/17 13:35 Flagyl - PO 500 mg TID MONTEZ Administration Morphine Sulfate 2 mg 03/11/17 18:21 03/12/17 11:13 Morphine Injection - IVPUSH 2 mg Q4H PRN Administration PAIN Home Medications Medication Instructions Recorded Metformin HCl 500 mg PO BID 03/08/17 A/P: Yudy Ybarra is a 56 yo M with PMHx of DM who presented to the ED with right foot ulcer. Patient was admitted for right foot abscess with cellulitis and possible osteomyelitis. 1. Right great toe wound with osteomyelitis - R toe wound secondary to DM, with osteomyelitis - Wound culture was positive for Morganella, Proteus, Group D strep, Presumptive MSSA, Strep viridans - Patient is now s/p right great toe amputation, POD 2, dressing was changed today morning - Patient was previously on Zosyn TID for [address]. [address] Calle patient will need 6 weeks of Flagyl and ceftriaxone - Ceftraixone 2gm IVPB, Flagyl 500 mg PO TID- Day 1 - Pain control with Morphine and Tylenol 650 mg PRN - Wound culture negative for growth after surgery - Patient currently does not have insurance, patient's friend will bring in the paper work for his insurance 2. DM - Hold Metformin - Levemir 5U HS - Novolog 1 vial SQ - BGM - Currently on DM diet 3. HTN - Patient denies history of HTN, but BP has been consistently elevated - Lisinopril 10 mg PO daily, Norvasc 5 mg - Currently controlled - Continue to monitor BP 4. DVT Porph - Heparin 5000U SQ TID Dispo: Will continue to monitor.
--- NOTE | 2017-03-13 18:28 | HOSP ---
Subjective - Review of Symptoms Events since last encounter: Friend, Ebony, present at bedside and served as diet tech whom speak Italian Explained current diagnosis and plan. Informed me that pt is here on visa which expires March 24, 2017 and plan was to return to [facility] As per him he has no health insurance in [facility] or a doctor and no financial means to pay for his medications [place] the [place] or [place] Ebony informed he will try to help as much as he can at this time Willing to bring pt to infusion center daily for abx until abx are complete ( 5 more weeks) Will be available to speak with SW and CM tomorrow to help devise plan for pts discharge as pt is medically optimized for discharge at this time will provide letter for pt tomorrow for him to give to immigration that he is unable to leave the country while undergoing medical treatment Ebony cell number [phone] Physical Examination Vital Signs: Vital Signs Temperature 97.9 F 03/13/17 14:01 Pulse Rate 71 03/13/17 14:01 Respiratory Rate 20 03/13/17 14:01 Blood Pressure 134/63 03/13/17 14:01 O2 Sat by Pulse Oximetry (%) 99 03/13/17 09:00 Labs: CBC, BMP 03/13/17 06:24 03/11/17 06:35
[2017-03-13] MEDS: INSULIN DETEMIR 100 UNITS/ML MDV SQ SCH (21:23)
--- NOTE | 2017-03-13 23:59 | PN ---
Physical Exam: SUBJECTIVE: Patient seen and examined. Pt denies chest pain, sob, abdominal pain, vomiting. Pt reports pain is controlled with pain medication. OBJECTIVE: Vital Signs Period Temp Pulse Resp BP Sys/Borrero Pulse Ox Last 24 Hr 97.9 F-98.3 F 71-78 16-20 115-139/60-85 99-99 GENERAL: The patient is awake, alert, and fully oriented, in no acute distress. LUNGS: Breath sounds equal, clear to auscultation bilaterally, no wheezes, no crackles, no accessory muscle use. HEART: Regular rate and rhythm, S1, S2 without murmur, rub or gallop. ABDOMEN: Soft, nontender, nondistended. EXTREMITIES: Right foot wrapped in dressing CDI. Left LE warm, well-perfused, no edema. PSYCH: Normal mood, normal affect. SKIN: Warm, dry, normal turgor, no rashes Laboratory Results - last 24 hr 03/13/17 03/13/17 03/13/17 06:09 06:24 08:00 WBC 7.1 D RBC 4.05 Hgb 10.3 L Hct 32.6 L MCV 80.5 MCH 25.4 L MCHC 31.5 L RDW 14.0 Plt Count 293 MPV 7.2 L POC Glucometer 143 C-Reactive Protein 4.7 H D 03/13/17 03/13/17 03/13/17 11:21 17:19 21:19 WBC RBC Hgb Hct MCV MCH MCHC RDW Plt Count MPV POC Glucometer 242 158 279 C-Reactive Protein Active Medications Generic Name Dose Route Start Last Admin Trade Name Freq PRN Reason Stop Dose Admin Acetaminophen 650 mg 03/11/17 18:20 03/11/17 20:47 Tylenol - PO 650 mg Q4H PRN Administration FEVER OR PAIN Amlodipine Besylate 5 mg 03/12/17 14:00 03/13/17 09:58 Norvasc - PO 5 mg DAILY MONTEZ Administration Heparin Sodium (Porcine) 5,000 unit 03/08/17 18:00 03/13/17 17:21 Heparin - SQ 5,000 unit Q8H-IV MONTEZ Administration CEFTRIAXONE IN IS-OSM DEXTROSE 2 gm in 50 mls @ 100 mls/hr 03/13/17 13:00 13:35 Ceftriaxone 2 Gm-D5w Bag IVPB 100 mls/hr DAILY MONTEZ Administration Insulin Aspart 1 vial 03/08/17 16:30 03/13/17 21:20 Novolog Vial Sliding Scale - SQ 6 units ACHS MONTEZ Administration Protocol Insulin Detemir 5 units 03/08/17 22:00 03/13/17 21:23 Levemir Vial SQ 5 units HS MONTEZ Administration Lisinopril 10 mg 03/11/17 16:30 03/13/17 09:58 Prinivil PO 10 mg DAILY MONTEZ Administration Metronidazole 500 mg 03/13/17 14:00 03/13/17 21:17 Flagyl - PO 500 mg TID MONTEZ Administration Morphine Sulfate 2 mg 03/11/17 18:21 03/12/17 11:13 Morphine Injection - IVPUSH 2 mg Q4H PRN Administration PAIN ASSESSMENT/PLAN: 56yo M with PMH of NIDDM, presents with Right diabetic foot ulcer and cellulitis /osteomyelitis. # Right great toe osteomyelitis, s/p Right great toe amputation on 03/11/17 - POD 2 - wound culture (-) x 48 hrs per preliminary report - IV Ceftriaxone (Day 1) - Flagyl po TID (Day 5 of antibiotics) - pain management with Morphine prn and Tylenol prn - pt encouraged to take pain medication if needed # NIDDM - hgba1c 12.6 - BGMs - Novolog SSI - Levemir 5U HS - Dietary Consult # htn - continue Lisinopril - Norvasc 5mg started # FEN - Fluids: po - Electrolytes: wnl, continue to monitor - Nutrition: diabetic diet # Prophylaxis - DVT ppx with Heparin - deconditioning ppx with PT # dispo - pt is clinically optimized for discharge - medicaid pending Visit type - Emergency Visit Emergency Visit: Yes ED Registration Date: 03/08/17 Care time: The patient presented to the Emergency Department on the above date and was hospitalized for further evaluation of their emergent condition. - New Patient This patient is new to me today: No - Critical Care Critical Care patient: No
[2017-03-14] MEDS: HEPARIN NA (PORCINE) 5,000 UNITS/ML 1ML VIAL SQ SCH ×3 (01:19→17:33)
[2017-03-14] MEDS: metroNIDAZOLE 250 MG TABLET PO SCH ×3 (06:07→22:28)
[2017-03-14] MEDS: INSULIN SLIDING SCALE (NOVOLOG) 1 VIAL SQ SCH ×4 (06:08→22:33)
[2017-03-14] MEDS ORDERED: INSULIN (NOVOLOG) ASPART 100 UNITS/ML 10ML VIAL ONE (07:55)
[2017-03-14] MEDS ORDERED: INSULIN DETEMIR 100 UNITS/ML MDV SQ ONE (07:56)
[2017-03-14] MEDS: LISINOPRIL 10 MG TABLET (FP) PO SCH (09:55)
[2017-03-14] MEDS: CEFTRIAXONE IN IS-OSM DEXTROSE 2 GM/50 ML BAG IVPB SCH (09:55)
[2017-03-14] MEDS: amLODIPine BESYLATE 5 MG TABLET (FP) PO SCH (09:55)
[2017-03-14] MEDS ORDERED: CEFTRIAXONE IN IS-OSM DEXTROSE 2 GM/50 ML BAG IVPB SCH (10:00)
--- NOTE | 2017-03-14 12:32 | MSN ---
Progress Note (short form) - Note Progress Note: Subjective: Yudy Ybarra is a 56 year old male with past medical history of diabetes who presented to the ED with right foot ulcer. Patient was admitted for right foot abscess with cellulitis and possible osteomyelitis. Patient seen and examined. Patient denies any complaints today except for right foot pain due to surgery. Patient states that he is feeling better. Patient currently denies nausea, headache, chest pain, palpitations, SOB, dizziness. Objective: Last Vital Signs Temp Pulse Resp BP Pulse Ox 98.1 F 70 16 123/60 99 03/14/17 09:00 03/14/17 09:00 03/14/17 09:00 03/14/17 09:00 03/14/17 09:00 Physical Exam: Gen: A&Ox3, well-appearing, in no acute distress Heart: RRR without MRG Lungs; CTA bilaterally without RRW Abdomen: soft, non-tender, non-distended, bowel sounds present and normoactive Extremities: no pitting edema in bilateral lower extremities Right lower extremity: warm to touch, R foot wrapped in dressing due to right great toe amputation yesterday, some blood noted on dressing Left lower extremity: DP pulse palpable and 2+, left great toe amputated a long time ago, no ulcers noted on left foot, plantar aspect of the foot very dry , no discoloration Laboratory Results - last 24 hr 03/13/17 03/13/17 03/13/17 08:00 17:19 21:19 ESR POC Glucometer 158 279 Hemoglobin A1c % C-Reactive Protein 4.7 H D 03/14/17 03/14/17 03/14/17 05:53 06:00 06:00 ESR 100 H POC Glucometer 274 Hemoglobin A1c % 11.2 H D C-Reactive Protein Current Medications Generic Name Dose Route Start Last Admin Trade Name Freq PRN Reason Stop Dose Admin Acetaminophen 650 mg 03/11/17 18:20 03/11/17 20:47 Tylenol - PO 650 mg Q4H PRN Administration FEVER OR PAIN Amlodipine Besylate 5 mg 03/12/17 14:00 03/14/17 09:55 Norvasc - PO 5 mg DAILY MONTEZ Administration Heparin Sodium (Porcine) 5,000 unit 03/08/17 18:00 03/14/17 09:55 Heparin - SQ 5,000 unit Q8H-IV MONTEZ Administration CEFTRIAXONE IN IS-OSM DEXTROSE 2 gm in 50 mls @ 100 mls/hr 03/13/17 13:00 09:55 Ceftriaxone 2 Gm-D5w Bag IVPB 100 mls/hr DAILY MONTEZ Administration Insulin Aspart 1 vial 03/08/17 16:30 03/14/17 06:08 Novolog Vial Sliding Scale - SQ 6 units ACHS MONTEZ Administration Protocol Insulin Detemir 8 units 03/14/17 22:00 Levemir Vial SQ HS MONTEZ Lisinopril 10 mg 03/11/17 16:30 03/14/17 09:55 Prinivil PO 10 mg DAILY MONTEZ Administration Metronidazole 500 mg 03/13/17 14:00 03/14/17 06:07 Flagyl - PO 500 mg TID MONTEZ Administration Morphine Sulfate 2 mg 03/11/17 18:21 03/12/17 11:13 Morphine Injection - IVPUSH 2 mg Q4H PRN Administration PAIN Home Medications Medication Instructions Recorded Metformin HCl 500 mg PO BID 03/08/17 A/P: Yudy Ybarra is a 56 yo M with PMHx of DM who presented to the ED with right foot ulcer. Patient was admitted for right foot abscess with cellulitis and possible osteomyelitis. 1. Right great toe wound with osteomyelitis - R toe wound secondary to DM, with osteomyelitis - Wound culture was positive for Morganella, Proteus, Group D strep, Presumptive MSSA, Strep viridans - Patient is now s/p right great toe amputation, POD 3, dressing change daily - Wound culture negative s/p amputation - Patient was previously on Zosyn TID - As per ID, Ceftraixone 2gm IVPB, Flagyl 500 mg PO TID- Day 6 - Pain control with Morphine and Tylenol 650 mg PRN, will change morphine to percocet since pain much better now - Patient currently does not have insurance, patient's friend brought the paper work for insurance, once that's resolved, patient can be discharged with a PICC line for IV antibiotics 2. DM - Hold Metformin - Levemir increased 8U HS due to consistently high glucose - Novolog 1 vial SQ - BGM - Currently on DM diet 3. HTN - Patient denies history of HTN, but BP has been consistently elevated - Lisinopril 10 mg PO daily, Norvasc 5 mg - Currently controlled - Continue to monitor BP, look for cheaper alternatives as patient doesn't have insurance 4. DVT Porph - Heparin 5000U SQ TID Dispo: Will continue to monitor until insurance issue has been resolved.
[2017-03-14] MEDS ORDERED: oxyCODONE HCL 5 MG TABLET PO PRN (14:30)
[2017-03-14] MEDS ORDERED: ACETAMINOPHEN 325 MG TABLET (FP) PO PRN (14:30)
--- NOTE | 2017-03-14 14:53 | PN ---
Teaching Attending Note Name of Resident: Leslie Logan ATTENDING PHYSICIAN STATEMENT I saw and evaluated the patient. I reviewed the resident's note and discussed the case with the resident. I agree with the resident's findings and plan as documented. SUBJECTIVE:asymptomatic. pain controlled. denies CP and SOB OBJECTIVE: Last Vital Signs Temp Pulse Resp BP Pulse Ox 97.8 F 76 18 131/76 99 03/14/17 14:23 03/14/17 14:23 03/14/17 14:23 03/14/17 14:23 03/14/17 09:00 General NAD Extremities R foot wrapped in dressing c/d/i ASSESSMENT AND PLAN: 56 yo M with NIDDM, comes with Right diabetic foot ulcer and cellulitis and likely osteomyelitis. 1. R 1st digit OM with gas forming organism-s/p 1st digit amputation 03/11. abx switched to Ceftriaxone IV and flagyl po. will need 6 weeks total. today day5. ambulation with surgical boot. PT 2. DM- A1c 12.2.titrate levemir to 8 units, iss. titrate to optimize control. nutritional teaching 3. HTN-controlled. cont lisinopril and norvasc. titrate to optimize control 4. hyperkalemia- resolved 5. pseudohyponatremia- resolved 6. DVT ppx- hep sq 7. medically optimized for discharge. pending emergent medicaid.
--- NOTE | 2017-03-14 15:55 | PN ---
Physical Exam: SUBJECTIVE: Patient seen and examined. Pain is controlled. Pt denies chest pain, sob, fevers, chills. OBJECTIVE: Vital Signs Period Temp Pulse Resp BP Sys/Borrero Pulse Ox Last 24 Hr 97.8 F-98.1 F 70-81 16-20 115-132/60-76 99-99 GENERAL: The patient is awake, alert, and fully oriented, in no acute distress. LUNGS: Breath sounds equal, clear to auscultation bilaterally, no wheezes, no crackles, no accessory muscle use. HEART: Regular rate and rhythm, S1, S2 without murmur, rub or gallop. ABDOMEN: Soft, nontender, nondistended. EXTREMITIES: Right foot wrapped in dressing, some bloody drainage on bandage. Left LE warm, well-perfused, no edema. PSYCH: Normal mood, normal affect. SKIN: Warm, dry, normal turgor, no rashes Laboratory Results - last 24 hr 03/13/17 03/13/17 03/14/17 17:19 21:19 05:53 ESR POC Glucometer 158 279 274 Hemoglobin A1c % 03/14/17 03/14/17 03/14/17 06:00 06:00 12:23 ESR 100 H POC Glucometer 177 Hemoglobin A1c % 11.2 H D Active Medications Generic Name Dose Route Start Last Admin Trade Name Pavanq PRN Reason Stop Dose Admin Acetaminophen 650 mg 03/11/17 18:20 03/11/17 20:47 Tylenol - PO 650 mg Q4H PRN Administration FEVER OR PAIN Acetaminophen 325 mg 03/14/17 14:30 Tylenol - PO 03/17/17 14:29 Q4H PRN PAIN Amlodipine Besylate 5 mg 03/12/17 14:00 03/14/17 09:55 Norvasc - PO 5 mg DAILY MONTEZ Administration Heparin Sodium (Porcine) 5,000 unit 03/08/17 18:00 03/14/17 09:55 Heparin - SQ 5,000 unit Q8H-IV MONTEZ Administration CEFTRIAXONE IN IS-OSM DEXTROSE 2 gm in 50 mls @ 100 mls/hr 03/13/17 13:00 09:55 Ceftriaxone 2 Gm-D5w Bag IVPB 100 mls/hr DAILY MONTEZ Administration Insulin Aspart 1 vial 03/08/17 16:30 03/14/17 12:45 Novolog Vial Sliding Scale - SQ 2 units ACHS MONTEZ Administration Protocol Insulin Detemir 8 units 03/14/17 22:00 Levemir Vial SQ HS MONTEZ Lisinopril 10 mg 03/11/17 16:30 03/14/17 09:55 Prinivil PO 10 mg DAILY MONTEZ Administration Metronidazole 500 mg 03/13/17 14:00 03/14/17 13:47 Flagyl - PO 500 mg TID MONTEZ Administration Oxycodone HCl 5 mg 03/14/17 14:30 Roxicodone - PO Q4H PRN PAIN IMAGIN03/14/17 Right foot xray -> s/p amputation of Right first proximal and distal phalanx. No evidence of destructive changes. No acute fracture seen. ASSESSMENT/PLAN: 56yo M with PMH of NIDDM, presents with Right diabetic foot ulcer and cellulitis /osteomyelitis. # Right great toe osteomyelitis, s/p Right great toe amputation on 03/11/17 - POD 3 - wound culture (-) x 48 hrs per preliminary report - IV Ceftriaxone (Day 2) - Flagyl po TID (Day 6 of antibiotics) - will need 6 weeks of antibiotics in total - pain management with Percocet prn and Tylenol prn - pt encouraged to take pain medication if needed # NIDDM - BGMs - Novolog SSI - Levemir 8U HS - Dietary Consult # htn - continue Lisinopril and Norvasc # FEN - Fluids: po - Electrolytes: wnl, continue to monitor - Nutrition: diabetic diet # Prophylaxis - DVT ppx with Heparin - deconditioning ppx with PT - ambulation with surgical boot # dispo - pt is clinically optimized for discharge - emergency medicaid pending Visit type - Emergency Visit Emergency Visit: Yes ED Registration Date: 03/08/17 Care time: The patient presented to the Emergency Department on the above date and was hospitalized for further evaluation of their emergent condition. - New Patient This patient is new to me today: No - Critical Care Critical Care patient: No
[2017-03-14] MEDS: INSULIN DETEMIR 100 UNITS/ML MDV SQ SCH (22:29)
[2017-03-15] MEDS: HEPARIN NA (PORCINE) 5,000 UNITS/ML 1ML VIAL SQ SCH ×3 (01:29→17:49)
[2017-03-15] MEDS: metroNIDAZOLE 250 MG TABLET PO SCH ×3 (06:53→22:02)
[2017-03-15] MEDS: INSULIN SLIDING SCALE (NOVOLOG) 1 VIAL SQ SCH ×4 (07:01→22:03)
--- NOTE | 2017-03-15 09:18 | PN ---
Progress Note (short form) - Note Progress Note: c/o some foot discomfort but only when ambulating. denies CP, SOB, fever, chills , N/V/C/D Current Medications Generic Name Dose Route Start Last Admin Trade Name Pavanq PRN Reason Stop Dose Admin Acetaminophen 650 mg 03/11/17 18:20 03/11/17 20:47 Tylenol - PO 650 mg Q4H PRN Administration FEVER OR PAIN Acetaminophen 325 mg 03/14/17 14:30 Tylenol - PO 03/17/17 14:29 Q4H PRN PAIN Amlodipine Besylate 5 mg 03/12/17 14:00 03/14/17 09:55 Norvasc - PO 5 mg DAILY MONTEZ Administration Heparin Sodium (Porcine) 5,000 unit 03/08/17 18:00 03/15/17 01:29 Heparin - SQ 5,000 unit Q8H-IV MONTEZ Administration CEFTRIAXONE IN IS-OSM DEXTROSE 2 gm in 50 mls @ 100 mls/hr 03/13/17 13:00 09:55 Ceftriaxone 2 Gm-D5w Bag IVPB 100 mls/hr DAILY MONTEZ Administration Insulin Aspart 1 vial 03/08/17 16:30 03/15/17 07:01 Novolog Vial Sliding Scale - SQ 2 units ACHS MONTEZ Administration Protocol Insulin Detemir 8 units 03/14/17 22:00 03/14/17 22:29 Levemir Vial SQ 8 units HS MONTEZ Administration Lisinopril 10 mg 03/11/17 16:30 03/14/17 09:55 Prinivil PO 10 mg DAILY MONTEZ Administration Metronidazole 500 mg 03/13/17 14:00 03/15/17 06:53 Flagyl - PO 500 mg TID MONTEZ Administration Oxycodone HCl 5 mg 03/14/17 14:30 Roxicodone - PO Q4H PRN PAIN General NAD Extremities R foot s/p 1st digit amputation wiht sutures intact. skin is slightly boggy but no active drainage. dorsal aspect with 2cm ulceration clean base. ASSESSMENT AND PLAN: 56 yo M with NIDDM, comes with Right diabetic foot ulcer and cellulitis and likely osteomyelitis. 1. R 1st digit OM with gas forming organism-s/p 1st digit amputation 03/11. on Ceftriaxone IV and flagyl po day 6. will need 6 weeks total. ambulation with surgical boot. PT. WBAT 2. DM- A1c 12.2.improved. cont levemir 8 units, iss. titrate to optimize control. nutritional teaching 3. HTN-controlled. cont lisinopril and norvasc. titrate to optimize control 4. hyperkalemia- resolved 5. pseudohyponatremia- resolved 6. DVT ppx- hep sq 7. medically optimized for discharge. pending emergent medicaid. letter given yesterday for [facility] to extend Visa Visit type - Emergency Visit Emergency Visit: Yes ED Registration Date: 03/08/17 Care time: The patient presented to the Emergency Department on the above date and was hospitalized for further evaluation of their emergent condition. - New Patient This patient is new to me today: No - Critical Care Critical Care patient: No - Discharge Referral Referred to [facility] Med [facility] No
[2017-03-15] MEDS ORDERED: PT OWN MED DRAWER 7, Y5N ONE (10:27)
[2017-03-15] MEDS: CEFTRIAXONE IN IS-OSM DEXTROSE 2 GM/50 ML BAG IVPB SCH (10:39)
[2017-03-15] MEDS: amLODIPine BESYLATE 5 MG TABLET (FP) PO SCH (10:39)
[2017-03-15] MEDS: LISINOPRIL 10 MG TABLET (FP) PO SCH (10:39)
[2017-03-15] MEDS: INSULIN DETEMIR 100 UNITS/ML MDV SQ SCH (22:03)
[2017-03-16] MEDS: HEPARIN NA (PORCINE) 5,000 UNITS/ML 1ML VIAL SQ SCH ×3 (01:47→17:12)
[2017-03-16] MEDS: metroNIDAZOLE 250 MG TABLET PO SCH ×3 (05:33→21:34)
[2017-03-16] MEDS: INSULIN SLIDING SCALE (NOVOLOG) 1 VIAL SQ SCH ×4 (06:19→21:36)
[2017-03-16] MEDS ORDERED: PT OWN MED DRAWER 7, Y5N ONE (09:09)
[2017-03-16] MEDS: CEFTRIAXONE IN IS-OSM DEXTROSE 2 GM/50 ML BAG IVPB SCH (09:16)
--- NOTE | 2017-03-16 09:17 | PN ---
Progress Note (short form) - Note Progress Note: asymptomatic. denies CP, SOB, fever, chills, N/V/C/D Current Medications Generic Name Dose Route Start Last Admin Trade Name Imani PRN Reason Stop Dose Admin Acetaminophen 650 mg 03/11/17 18:20 03/11/17 20:47 Tylenol - PO 650 mg Q4H PRN Administration FEVER OR PAIN Acetaminophen 325 mg 03/14/17 14:30 Tylenol - PO 03/17/17 14:29 Q4H PRN PAIN Amlodipine Besylate 5 mg 03/12/17 14:00 03/15/17 10:39 Norvasc - PO 5 mg DAILY MONTEZ Administration Heparin Sodium (Porcine) 5,000 unit 03/08/17 18:00 03/16/17 01:47 Heparin - SQ 5,000 unit Q8H-IV MONTEZ Administration CEFTRIAXONE IN IS-OSM DEXTROSE 2 gm in 50 mls @ 100 mls/hr 03/13/17 13:00 10:39 Ceftriaxone 2 Gm-D5w Bag IVPB 100 mls/hr DAILY MONTEZ Administration Insulin Aspart 1 vial 03/08/17 16:30 03/16/17 06:19 Novolog Vial Sliding Scale - SQ Not Given ACHS [facility] Protocol Insulin Detemir 8 units 03/14/17 22:00 03/15/17 22:03 Levemir Vial SQ 8 units HS MONTEZ Administration Lisinopril 10 mg 03/11/17 16:30 03/15/17 10:39 Prinivil PO 10 mg DAILY MONTEZ Administration Metronidazole 500 mg 03/13/17 14:00 03/16/17 05:33 Flagyl - PO 500 mg TID MONTEZ Administration Oxycodone HCl 5 mg 03/14/17 14:30 Roxicodone - PO Q4H PRN PAIN Last Vital Signs Temp Pulse Resp BP Pulse Ox 98 F 82 16 138/74 99 03/16/17 05:38 03/16/17 05:38 03/16/17 05:38 03/16/17 05:38 03/15/17 21:00 General NAD Extremities R foot dressing c/d/i. Microbiology 03/11/17 12:40 Wound Gram Stain - Final 03/11/17 12:40 Wound Wound Culture - Final NO GROWTH AFTER 48 HOURS INCUBATION 03/08/17 11:34 Blood - Peripheral Venous Blood Culture - Final NO GROWTH AFTER 5 DAYS INCUBATION 03/08/17 11:34 Blood - Peripheral Venous Blood Culture - Final NO GROWTH AFTER 5 DAYS INCUBATION 03/08/17 18:50 Foot - Right Plantar Gram Stain - Final 03/08/17 18:50 Foot - Right Plantar Wound Culture - Final Morganella Morganii Proteus Mirabilis Enterococcus Faecalis 03/08/17 21:00 Foot - Right Dorsum Gram Stain - Final 03/08/17 21:00 Foot - Right Dorsum Wound Culture - Final Morganella Morganii Proteus Mirabilis Enterococcus Faecalis Staphylococcus Aureus Streptococcus Viridans ASSESSMENT AND PLAN: 56 yo M with NIDDM, comes with Right diabetic foot ulcer and cellulitis and likely osteomyelitis. 1. R 1st digit OM with gas forming organism-s/p 1st digit amputation 03/11. on Ceftriaxone IV and flagyl po day 7. will need 6 weeks total. ambulation with surgical boot. PT. WBAT 2. DM- A1c 12.2.improved. cont levemir 8 units, iss. titrate to optimize control. nutritional teaching 3. HTN-controlled. cont lisinopril and norvasc. titrate to optimize control 4. hyperkalemia- resolved 5. pseudohyponatremia- resolved 6. DVT ppx- hep sq 7. medically optimized for discharge. pending emergent medicaid. letter given yesterday for [employer] to extend Visa Visit type - Emergency Visit Emergency Visit: Yes ED Registration Date: 03/08/17 Care time: The patient presented to the Emergency Department on the above date and was hospitalized for further evaluation of their emergent condition. - New Patient This patient is new to me today: No - Critical Care Critical Care patient: No - Discharge Referral Referred to [facility] Med [facility].: No
[2017-03-16] MEDS: LISINOPRIL 10 MG TABLET (FP) PO SCH (09:18)
[2017-03-16] MEDS: amLODIPine BESYLATE 5 MG TABLET (FP) PO SCH (09:19)
--- NOTE | 2017-03-16 10:06 | CONSULT ---
Consult - text type - Consultation Consultation Note: Patient seen in bed. VSS. Tma 98.0F dressing clean dry and intact, -mal odor, +retention sutures intact, + granulating well, [id number], +improved edema, -cellulitis, +pretrophic eschar right heel normal post op Needs home IVABX. VNS. Local wound care. Continue betadine dressing change daily. Will follow till DC. Dressing change done. Re-order wbc, esr, crp. Patient can be discharged from my point of view once ivabx, vns and medicine clears the patient Heel padding to right heel.
--- NOTE | 2017-03-16 17:22 | PN ---
Physical Exam: SUBJECTIVE: Patient seen and examined. Pt denies chest pain, sob, abdominal pain, fever, chills. Right foot pain controlled with pain medication. OBJECTIVE: Vital Signs Period Temp Pulse Resp BP Sys/Borrero Pulse Ox Last 24 Hr 97.6 F-98.1 F 67-82 16-18 122-148/62-84 99-99 GENERAL: The patient is awake, alert, and fully oriented, in no acute distress. LUNGS: Breath sounds equal, clear to auscultation bilaterally, no wheezes, no crackles, no accessory muscle use. HEART: Regular rate and rhythm, S1, S2 without murmur, rub or gallop. ABDOMEN: Soft, nontender, nondistended. EXTREMITIES: Right foot wrapped in dressing CDI. Left LE warm, well-perfused, no edema. PSYCH: Normal mood, normal affect. SKIN: Warm, dry, normal turgor, no rashes Laboratory Results - last 24 hr 03/15/17 03/15/17 03/16/17 16:58 20:26 05:32 POC Glucometer 164 233 144 Hemoglobin A1c % C-Reactive Protein 03/16/17 03/16/17 03/16/17 10:20 10:20 11:15 POC Glucometer 270 Hemoglobin A1c % 11.7 H D C-Reactive Protein 1.6 H D Active Medications Generic Name Dose Route Start Last Admin Trade Name Pavanq PRN Reason Stop Dose Admin Acetaminophen 650 mg 03/11/17 18:20 03/11/17 20:47 Tylenol - PO 650 mg Q4H PRN Administration FEVER OR PAIN Acetaminophen 325 mg 03/14/17 14:30 03/16/17 09:18 Tylenol - PO 03/17/17 14:29 325 mg Q4H PRN Administration PAIN Amlodipine Besylate 5 mg 03/12/17 14:00 03/16/17 09:19 Norvasc - PO 5 mg DAILY MONTEZ Administration Heparin Sodium (Porcine) 5,000 unit 03/08/17 18:00 03/16/17 17:12 Heparin - SQ 5,000 unit Q8H-IV MONTEZ Administration CEFTRIAXONE IN IS-OSM DEXTROSE 2 gm in 50 mls @ 100 mls/hr 03/13/17 13:00 09:16 Ceftriaxone 2 Gm-D5w Bag IVPB 100 mls/hr DAILY MONTEZ Administration Insulin Aspart 1 vial 03/08/17 16:30 03/16/17 17:10 Novolog Vial Sliding Scale - SQ 2 units ACHS MONTEZ Administration Protocol Insulin Detemir 8 units 03/14/17 22:00 03/15/17 22:03 Levemir Vial SQ 8 units HS MONTEZ Administration Lisinopril 10 mg 03/11/17 16:30 03/16/17 09:18 Prinivil PO 10 mg DAILY MONTEZ Administration Metronidazole 500 mg 03/13/17 14:00 03/16/17 15:48 Flagyl - PO 500 mg TID MONTEZ Administration Oxycodone HCl 5 mg 03/14/17 14:30 03/16/17 09:18 Roxicodone - PO 5 mg Q4H PRN Administration PAIN IMAGIN03/16/17 Right heel xray -> no fracture, subluxation, or bone destruction. No acute pathology. ASSESSMENT/PLAN: 56yo M with PMH of NIDDM, presents with Right diabetic foot ulcer and cellulitis /osteomyelitis. # Right great toe osteomyelitis, s/p Right great toe amputation on 03/11/17 - POD 5 - 03/11/17 wound culture (-) x 48 hrs - Day 4 of IV Ceftriaxone - Flagyl po TID (Day 7 of antibiotics) - will need 6 weeks of antibiotics in total - pain management with Percocet prn and Tylenol prn - pt encouraged to take pain medication if needed - wt bearing as tolerated # NIDDM - BGMs - Novolog SSI - Levemir 8U HS - Dietary Consult # htn - continue Lisinopril and Norvasc # FEN - Fluids: po - Electrolytes: wnl, continue to monitor - Nutrition: diabetic diet # Prophylaxis - DVT ppx with Heparin - deconditioning ppx with PT - ambulation with surgical boot # dispo - pt is clinically optimized for discharge - emergency medicaid pending - letter given to extend VISA 2/2 continued necessary medical treatment Visit type - Emergency Visit Emergency Visit: Yes ED Registration Date: 03/08/17 Care time: The patient presented to the Emergency Department on the above date and was hospitalized for further evaluation of their emergent condition. - New Patient This patient is new to me today: No - Critical Care Critical Care patient: No
[2017-03-16] MEDS: INSULIN DETEMIR 100 UNITS/ML MDV SQ SCH (21:34)
[2017-03-17] MEDS: HEPARIN NA (PORCINE) 5,000 UNITS/ML 1ML VIAL SQ SCH ×3 (02:55→17:08)
[2017-03-17] MEDS: metroNIDAZOLE 250 MG TABLET PO SCH ×3 (05:38→22:01)
[2017-03-17] MEDS: INSULIN SLIDING SCALE (NOVOLOG) 1 VIAL SQ SCH ×4 (06:42→22:10)
[2017-03-17 08:23] LABS: BASO % 0.4 % (0-2.0); EOS % 1.3 % (0-4.5); HEMATOCRIT 32.8 % (35.4-49); HEMOGLOBIN 10.6 GM/dL (11.7-16.9); MCH 25.7 pg (25.7-33.7); MCHC 32.2 g/dl (32.0-35.9); MEAN CELL VOLUME 79.9 fl (80-96); MEAN PLT VOLUME 7.6 fl (7.5-11.1); MONO % 7.9 % (3.8-10.2); NEUT % 47.4 % (42.8-82.8); PLATELET COUNT 276 K/MM3 (134-434); RDW 14.4 % (11.9-15.9); WHITE BLOOD COUNT 5.8 K/mm3 (4.0-10.0)
[2017-03-17] MEDS ORDERED: PT OWN MED DRAWER 7, Y5N ONE (09:22)
[2017-03-17] MEDS: CEFTRIAXONE IN IS-OSM DEXTROSE 2 GM/50 ML BAG IVPB SCH (09:25)
[2017-03-17] MEDS: amLODIPine BESYLATE 5 MG TABLET (FP) PO SCH (09:25)
[2017-03-17] MEDS: LISINOPRIL 10 MG TABLET (FP) PO SCH (09:25)
--- NOTE | 2017-03-17 10:19 | PN ---
Progress Note (short form) - Note Progress Note: asymptomatic. denies CP, SOB, fever, chills, N/V/C/D Current Medications Generic Name Dose Route Start Last Admin Trade Name Imani PRN Reason Stop Dose Admin Acetaminophen 650 mg 03/11/17 18:20 03/11/17 20:47 Tylenol - PO 650 mg Q4H PRN Administration FEVER OR PAIN Acetaminophen 325 mg 03/14/17 14:30 03/16/17 09:18 Tylenol - PO 03/17/17 14:29 325 mg Q4H PRN Administration PAIN Amlodipine Besylate 5 mg 03/12/17 14:00 03/17/17 09:25 Norvasc - PO 5 mg DAILY MONTEZ Administration Heparin Sodium (Porcine) 5,000 unit 03/08/17 18:00 03/17/17 09:25 Heparin - SQ 5,000 unit Q8H-IV MONTEZ Administration CEFTRIAXONE IN IS-OSM DEXTROSE 2 gm in 50 mls @ 100 mls/hr 03/13/17 13:00 04/03 09:25 Ceftriaxone 2 Gm-D5w Bag IVPB 100 mls/hr DAILY MONTEZ Administration Insulin Aspart 1 vial 03/08/17 16:30 03/17/17 06:42 Novolog Vial Sliding Scale - SQ Not Given ACHS [facility] Protocol Insulin Detemir 8 units 03/14/17 22:00 03/16/17 21:34 Levemir Vial SQ 8 units HS MONTEZ Administration Lisinopril 10 mg 03/11/17 16:30 03/17/17 09:25 Prinivil PO 10 mg DAILY MONTEZ Administration Metronidazole 500 mg 03/13/17 14:00 03/17/17 05:38 Flagyl - PO 500 mg TID MONTEZ Administration Oxycodone HCl 5 mg 03/14/17 14:30 03/16/17 09:18 Roxicodone - PO 5 mg Q4H PRN Administration PAIN Last Vital Signs Temp Pulse Resp BP Pulse Ox 98.2 F 70 20 135/75 99 03/17/17 06:35 03/17/17 06:35 03/17/17 06:35 03/17/17 06:35 03/16/17 21:00 General NAD Extremities R foot dressing c/d/i. Microbiology 03/11/17 12:40 Wound Gram Stain - Final 03/11/17 12:40 Wound Wound Culture - Final NO GROWTH AFTER 48 HOURS INCUBATION 03/08/17 11:34 Blood - Peripheral Venous Blood Culture - Final NO GROWTH AFTER 5 DAYS INCUBATION 03/08/17 11:34 Blood - Peripheral Venous Blood Culture - Final NO GROWTH AFTER 5 DAYS INCUBATION 03/08/17 18:50 Foot - Right Plantar Gram Stain - Final 03/08/17 18:50 Foot - Right Plantar Wound Culture - Final Morganella Morganii Proteus Mirabilis Enterococcus Faecalis 03/08/17 21:00 Foot - Right Dorsum Gram Stain - Final 03/08/17 21:00 Foot - Right Dorsum Wound Culture - Final Morganella Morganii Proteus Mirabilis Enterococcus Faecalis Staphylococcus Aureus Streptococcus Viridans ASSESSMENT AND PLAN: 56 yo M with NIDDM, comes with Right diabetic foot ulcer and cellulitis and likely osteomyelitis. 1. R 1st digit OM with gas forming organism-s/p 1st digit amputation 03/11. on Ceftriaxone IV and flagyl po day 8. will need 6 weeks total. ambulation with surgical boot. PT. WBAT 2. DM- A1c 12.2. low sugars this AM. asymptomatic. switch to levemir 5 units BID. will give 3 units this AM. titrate to optimize control. nutritional teaching 3. HTN-controlled. cont lisinopril and norvasc. titrate to optimize control 4. hyperkalemia- resolved 5. pseudohyponatremia- resolved 6. DVT ppx- hep sq 7. medically optimized for discharge. pending emergent medicaid. letter given yesterday for [employer] to extend Visa Visit type - Emergency Visit Emergency Visit: Yes ED Registration Date: 03/08/17 Care time: The patient presented to the Emergency Department on the above date and was hospitalized for further evaluation of their emergent condition. - New Patient This patient is new to me today: No - Critical Care Critical Care patient: No - Discharge Referral Referred to [facility] Med P.C[facility] No
[2017-03-17] MEDS ORDERED: INSULIN DETEMIR 100 UNITS/ML MDV SQ ONE ×2 (10:45→11:19)
[2017-03-17] MEDS ORDERED: INSULIN (NOVOLOG) ASPART 100 UNITS/ML 10ML VIAL ONE (11:18)
[2017-03-17 11:54] LABS: ERYTHROCYTE SEDIMENTATION RATE 60 mm/hr (0-20)
[2017-03-17] MEDS: INSULIN DETEMIR 100 UNITS/ML MDV SQ SCH (22:01)
[2017-03-18] MEDS: HEPARIN NA (PORCINE) 5,000 UNITS/ML 1ML VIAL SQ SCH ×3 (03:00→18:02)
[2017-03-18] MEDS: metroNIDAZOLE 250 MG TABLET PO SCH ×3 (06:54→21:52)
[2017-03-18] MEDS: INSULIN DETEMIR 100 UNITS/ML MDV SQ SCH ×2 (06:55→21:53)
[2017-03-18] MEDS: INSULIN SLIDING SCALE (NOVOLOG) 1 VIAL SQ SCH ×4 (06:55→21:53)
[2017-03-18] MEDS: amLODIPine BESYLATE 5 MG TABLET (FP) PO SCH (10:22)
[2017-03-18] MEDS: LISINOPRIL 10 MG TABLET (FP) PO SCH (10:22)
[2017-03-18] MEDS: CEFTRIAXONE IN IS-OSM DEXTROSE 2 GM/50 ML BAG IVPB SCH (10:29)
[2017-03-18] MEDS ORDERED: INSULIN (NOVOLOG) ASPART 100 UNITS/ML 10ML VIAL ONE (11:57)
--- NOTE | 2017-03-18 14:32 | MSN ---
Progress Note (short form) - Note Progress Note: Subjective: Yudy Ybarra is a 56 year old male with past medical history of diabetes who presented to the ED with right foot ulcer. Patient was admitted for right foot abscess with cellulitis and possible osteomyelitis. Patient seen and examined. Patient denies any complaints today except for right lower back pain and urinary hesitancy. Patient currently denies nausea, vomiting, headache, dizziness, chest pain, palpitations, SOB, dysuria, hematuria or urinary frequency. Objective: Last Vital Signs Temp Pulse Resp BP Pulse Ox 98.1 F 75 16 124/89 99 03/18/17 09:00 03/18/17 09:00 03/18/17 09:00 03/18/17 09:00 03/17/17 21:00 Physical Exam: Gen: A&Ox3, well-appearing, in no acute distress Heart: RRR without MRG Lungs; CTA bilaterally without RRW Abdomen: soft, non-tender, non-distended, bowel sounds present and normoactive, no CVA tenderness MSK: tenderness to palpation in right lower back, no erythema or swelling Extremities: no pitting edema in bilateral lower extremities Right lower extremity: warm to touch, R foot wrapped in dressing due to right great toe amputation, some blood noted on dressing, superficial ulcer noted on right heel, no drainage, no odor Left lower extremity: DP pulse palpable and 2+, left great toe amputated a long time ago, no ulcers noted on left foot, plantar aspect of the foot very dry , no discoloration Laboratory Results - last 24 hr 03/17/17 03/17/17 03/18/17 16:55 22:03 05:48 POC Glucometer 148 243 121 03/18/17 11:54 POC Glucometer 186 Current Medications Generic Name Dose Route Start Last Admin Trade Name Freq PRN Reason Stop Dose Admin Acetaminophen 650 mg 03/11/17 18:20 03/11/17 20:47 Tylenol - PO 650 mg Q4H PRN Administration FEVER OR PAIN Amlodipine Besylate 5 mg 03/12/17 14:00 03/18/17 10:22 Norvasc - PO 5 mg DAILY MONTEZ Administration Heparin Sodium (Porcine) 5,000 unit 03/08/17 18:00 03/18/17 10:22 Heparin - SQ 5,000 unit Q8H-IV MONTEZ Administration CEFTRIAXONE IN IS-OSM DEXTROSE 2 gm in 50 mls @ 100 mls/hr 03/13/17 13:00 05/04 10:29 Ceftriaxone 2 Gm-D5w Bag IVPB 100 mls/hr DAILY MONTEZ Administration Insulin Aspart 1 vial 03/08/17 16:30 03/18/17 11:58 Novolog Vial Sliding Scale - SQ 2 units ACHS MONTEZ Administration Protocol Insulin Detemir 5 units 03/17/17 22:00 03/18/17 06:55 Levemir Vial SQ 5 units BID@0700,2200 MONTEZ Administration Lisinopril 10 mg 03/11/17 16:30 03/18/17 10:22 Prinivil PO 10 mg DAILY MONTEZ Administration Metronidazole 500 mg 03/13/17 14:00 03/18/17 06:54 Flagyl - PO 500 mg TID MONTEZ Administration Oxycodone HCl 5 mg 03/14/17 14:30 03/16/17 09:18 Roxicodone - PO 5 mg Q4H PRN Administration PAIN Home Medications Medication Instructions Recorded Metformin HCl 500 mg PO BID 03/08/17 A/P: Yudy Ybarra is a 56 yo M with PMHx of DM who presented to the ED with right foot ulcer. Patient was admitted for right foot abscess with cellulitis and possible osteomyelitis. 1. Right great toe wound with osteomyelitis - R toe wound secondary to DM, with osteomyelitis - Wound culture was positive for Morganella, Proteus, Group D strep, Presumptive MSSA, Strep viridans - Patient is now s/p right great toe amputation, POD 7, dressing change daily - Wound culture negative s/p amputation - Patient was previously on Zosyn TID - As per ID, Ceftraixone 2gm IVPB, Flagyl 500 mg PO TID- Day 10 - Pain control with oxycodone PRN - heel padding on right heel 2. DM - Hold Metformin - Levemir 5U SQ BID - Novolog 1 vial SQ - BGM - Currently on DM diet 3. HTN - Patient denies history of HTN, but BP has been consistently elevated - Lisinopril 10 mg PO daily, Norvasc 5 mg - Currently controlled - Continue to monitor BP, look for cheaper alternatives as patient doesn't have insurance 4. Urinary hesitancy - Possibly from enlarged prostate vs UTI, although patient is afebrile - Bladder scan was negative for urinary retention. PVR was 0 - UA pending 4. DVT Porph - Heparin 5000U SQ TID Dispo: Patient currently does not have insurance, pending emergent medicaid. Once that' s resolved, patient can be discharged with a PICC line for IV antibiotics
[2017-03-18 17:07] LABS: URINE APPEARANCE CLEAR; URINE BILIRUBIN NEGATIVE (NEGATIVE); URINE BLOOD NEGATIVE (NEGATIVE); URINE COLOR LTYELLOW; URINE GLUCOSE (UA) NEGATIVE (NEGATIVE); URINE KETONE NEGATIVE (NEGATIVE); URINE LEUK ESTERASE TRACE (NEGATIVE); URINE NITRITE NEGATIVE (NEGATIVE); URINE PROTEIN NEGATIVE (NEGATIVE); URINE UROBILINOGEN NEGATIVE mg/dL (0.2-1.0)
[2017-03-18 17:41] LABS: URINE HYALINE CAST 2 /lpf
--- NOTE | 2017-03-18 19:22 | PN ---
Teaching Attending Note Name of Resident: Leslie Logan ATTENDING PHYSICIAN STATEMENT Time of evaluation: 11:30 AM I saw and evaluated the patient. I reviewed the resident's note and discussed the case with the resident. I agree with the resident's findings and plan as documented. SUBJECTIVE: Patient seen and examined, some right low back pain. reports urinary urgency earlier, currently denies. OBJECTIVE: Vital Signs Period Temp Pulse Resp BP Sys/Borrero Pulse Ox Last 24 Hr 97.8 F-98.2 F 75-83 16-20 124-147/71-93 99-99 Intake & Output 03/15/17 03/16/17 03/17/17 03/18/17 23:59 23:59 23:59 23:59 Intake Total 600 1510 1250 2000 Output Total 250 1100 1560 Balance 350 1510 150 440 General: sitting in bed in no acute distress Extremities: right foot dressing, able to move toes No CVA tenderness, pain over right iliac crest region but no tenderness abdomen: soft, NT, no suprapubic tenderness Home Medication List Medication Instructions Recorded Confirmed Type Metformin HCl 500 mg PO BID 03/08/17 03/08/17 History Active Medications Generic Name Dose Route Start Last Admin Trade Name Freq PRN Reason Stop Dose Admin Acetaminophen 650 mg 03/11/17 18:20 03/11/17 20:47 Tylenol - PO 650 mg Q4H PRN Administration FEVER OR PAIN Amlodipine Besylate 5 mg 03/12/17 14:00 03/18/17 10:22 Norvasc - PO 5 mg DAILY MONTEZ Administration Heparin Sodium (Porcine) 5,000 unit 03/08/17 18:00 03/18/17 18:02 Heparin - SQ 5,000 unit Q8H-IV MONTEZ Administration CEFTRIAXONE IN IS-OSM DEXTROSE 2 gm in 50 mls @ 100 mls/hr 03/13/17 13:00 05/04 10:29 Ceftriaxone 2 Gm-D5w Bag IVPB 100 mls/hr DAILY MONTEZ Administration Insulin Aspart 1 vial 03/08/17 16:30 03/18/17 18:01 Novolog Vial Sliding Scale - SQ Not Given ACHS MONTEZ Protocol Insulin Detemir 5 units 03/17/17 22:00 03/18/17 06:55 Levemir Vial SQ 5 units BID@0700,2200 MONTEZ Administration Lisinopril 10 mg 03/11/17 16:30 03/18/17 10:22 Prinivil PO 10 mg DAILY MNOTEZ Administration Metronidazole 500 mg 03/13/17 14:00 03/18/17 14:42 Flagyl - PO 500 mg TID MONTEZ Administration Oxycodone HCl 5 mg 03/14/17 14:30 03/16/17 09:18 Roxicodone - PO 5 mg Q4H PRN Administration PAIN Laboratory Results - last 24 hr 03/17/17 03/18/17 03/18/17 22:03 05:48 11:54 POC Glucometer 243 121 186 Urine Color Urine Appearance Urine pH Ur Specific [place] Urine Protein Urine Glucose (UA) Urine Ketones Urine Blood Urine Nitrite Urine Bilirubin Urine Urobilinogen Urine WBC (Auto) Urine RBC (Auto) Hyaline Casts 03/18/17 03/18/17 15:30 17:59 POC Glucometer 142 Urine Color Ltyellow Urine Appearance Clear Urine pH 6.0 Ur Specific [place] 1.009 Urine Protein Negative Urine Glucose (UA) Negative Urine Ketones Negative Urine Blood Negative Urine Nitrite Negative Urine Bilirubin Negative Urine Urobilinogen Negative Urine WBC (Auto) 1 Urine RBC (Auto) <1 Hyaline Casts 2 Microbiology 03/11/17 12:40 Wound Gram Stain - Final 03/11/17 12:40 Wound Wound Culture - Final NO GROWTH AFTER 48 HOURS INCUBATION 03/08/17 11:34 Blood - Peripheral Venous Blood Culture - Final NO GROWTH AFTER 5 DAYS INCUBATION 03/08/17 11:34 Blood - Peripheral Venous Blood Culture - Final NO GROWTH AFTER 5 DAYS INCUBATION 03/08/17 18:50 Foot - Right Plantar Gram Stain - Final 03/08/17 18:50 Foot - Right Plantar Wound Culture - Final Morganella Morganii Proteus Mirabilis Enterococcus Faecalis 03/08/17 21:00 Foot - Right Dorsum Gram Stain - Final 03/08/17 21:00 Foot - Right Dorsum Wound Culture - Final Morganella Morganii Proteus Mirabilis Enterococcus Faecalis Staphylococcus Aureus Streptococcus Viridans ASSESSMENT AND PLAN: 56 yo M with NIDDM, comes with Right diabetic foot ulcer and cellulitis and likely osteomyelitis. 1. R 1st digit OM with gas forming organism-s/p 1st digit amputation 03/11. on Ceftriaxone IV and flagyl po day 9. will need 6 weeks total. ambulation with surgical boot. PT. WBAT 2. DM- A1c 12.2. low sugars in AM. asymptomatic. levemir 5 units BID. titrate to optimize control. nutritional teaching 3. HTN-controlled. cont lisinopril and norvasc. titrate to optimize control 4. hyperkalemia- resolved 5. pseudohyponatremia- resolved 6. DVT ppx- hep sq 7. medically optimized for discharge. pending emergent medicaid. letter given for [facility] to extend Visa
--- NOTE | 2017-03-18 19:47 | PN ---
Physical Exam: SUBJECTIVE: Patient seen and examined. Pt c/o pain to Right iliac crest. Pt denies chest pain, sob, abdominal pain, fever, chills. OBJECTIVE: Vital Signs Period Temp Pulse Resp BP Sys/Borrero Pulse Ox Last 24 Hr 97.8 F-98.2 F 75-83 16-20 124-147/71-93 99-99 GENERAL: The patient is awake, alert, and fully oriented, in no acute distress. LUNGS: Breath sounds equal, clear to auscultation bilaterally, no wheezes, no crackles, no accessory muscle use. HEART: Regular rate and rhythm, S1, S2 without murmur, rub or gallop. ABDOMEN: Soft, nontender, nondistended, no suprapubic tenderness. No CVA tenderness. EXTREMITIES: Right foot wrapped in dressing CDI, able to move toes. Left LE warm, well-perfused, no edema. PSYCH: Normal mood, normal affect. SKIN: Warm, dry, normal turgor, no rashes Laboratory Results - last 24 hr 03/17/17 03/18/17 03/18/17 22:03 05:48 11:54 POC Glucometer 243 121 186 Urine Color Urine Appearance Urine pH Ur Specific [place] Urine Protein Urine Glucose (UA) Urine Ketones Urine Blood Urine Nitrite Urine Bilirubin Urine Urobilinogen Urine WBC (Auto) Urine RBC (Auto) Hyaline Casts 03/18/17 03/18/17 15:30 17:59 POC Glucometer 142 Urine Color Ltyellow Urine Appearance Clear Urine pH 6.0 Ur Specific [place] 1.009 Urine Protein Negative Urine Glucose (UA) Negative Urine Ketones Negative Urine Blood Negative Urine Nitrite Negative Urine Bilirubin Negative Urine Urobilinogen Negative Urine WBC (Auto) 1 Urine RBC (Auto) <1 Hyaline Casts 2 Active Medications Generic Name Dose Route Start Last Admin Trade Name Freq PRN Reason Stop Dose Admin Acetaminophen 650 mg 03/11/17 18:20 03/11/17 20:47 Tylenol - PO 650 mg Q4H PRN Administration FEVER OR PAIN Amlodipine Besylate 5 mg 03/12/17 14:00 03/18/17 10:22 Norvasc - PO 5 mg DAILY MONTEZ Administration Heparin Sodium (Porcine) 5,000 unit 03/08/17 18:00 03/18/17 18:02 Heparin - SQ 5,000 unit Q8H-IV MONTEZ Administration CEFTRIAXONE IN IS-OSM DEXTROSE 2 gm in 50 mls @ 100 mls/hr 03/13/17 13:00 05/04 10:29 Ceftriaxone 2 Gm-D5w Bag IVPB 100 mls/hr DAILY MONTEZ Administration Insulin Aspart 1 vial 03/08/17 16:30 03/18/17 18:01 Novolog Vial Sliding Scale - SQ Not Given ACHS MONTEZ Protocol Insulin Detemir 5 units 03/17/17 22:00 03/18/17 06:55 Levemir Vial SQ 5 units BID@0700,2200 MONTEZ Administration Lisinopril 10 mg 03/11/17 16:30 03/18/17 10:22 Prinivil PO 10 mg DAILY MONTEZ Administration Metronidazole 500 mg 03/13/17 14:00 03/18/17 14:42 Flagyl - PO 500 mg TID MONTEZ Administration Oxycodone HCl 5 mg 03/14/17 14:30 03/16/17 09:18 Roxicodone - PO 5 mg Q4H PRN Administration PAIN ASSESSMENT/PLAN: 56yo M with PMH of NIDDM, presents with Right diabetic foot ulcer and cellulitis /osteomyelitis. # Right great toe osteomyelitis, s/p Right great toe amputation on 03/11/17 - POD 7 - 03/11/17 wound culture (-) x 48 hrs - Day 6 of IV Ceftriaxone - Flagyl po TID (Day 9 of antibiotics) - pain management with Oxycodone prn and Tylenol prn - pt encouraged to take pain medication if needed # NIDDM - BGMs - Novolog SSI - Levemir 5U BID - Dietary Consult # htn - continue Lisinopril and Norvasc # FEN - Fluids: po - Electrolytes: wnl, continue to monitor - Nutrition: diabetic diet # Prophylaxis - DVT ppx with Heparin - deconditioning ppx with PT - ambulation with surgical boot, WBAT # dispo - pt is clinically optimized for discharge - emergency medicaid pending - letter given to extend VISA 2/2 continued necessary medical treatment - will need 6 weeks antibiotics in total Visit type - Emergency Visit Emergency Visit: Yes ED Registration Date: 03/08/17 Care time: The patient presented to the Emergency Department on the above date and was hospitalized for further evaluation of their emergent condition. - New Patient This patient is new to me today: No - Critical Care Critical Care patient: No
[2017-03-19] MEDS: HEPARIN NA (PORCINE) 5,000 UNITS/ML 1ML VIAL SQ SCH ×3 (02:00→18:02)
[2017-03-19] MEDS: INSULIN SLIDING SCALE (NOVOLOG) 1 VIAL SQ SCH ×4 (06:05→22:24)
[2017-03-19] MEDS: INSULIN DETEMIR 100 UNITS/ML MDV SQ SCH ×2 (06:05→22:24)
[2017-03-19] MEDS: metroNIDAZOLE 250 MG TABLET PO SCH ×3 (06:06→22:25)
[2017-03-19] MEDS ORDERED: PT OWN MED DRAWER 7, Y5N ONE (10:41)
[2017-03-19] MEDS: CEFTRIAXONE IN IS-OSM DEXTROSE 2 GM/50 ML BAG IVPB SCH (10:42)
[2017-03-19] MEDS: amLODIPine BESYLATE 5 MG TABLET (FP) PO SCH (10:43)
[2017-03-19] MEDS: LISINOPRIL 10 MG TABLET (FP) PO SCH (10:43)
--- NOTE | 2017-03-19 16:41 | PN ---
Teaching Attending Note Name of Resident: Leslie Logan ATTENDING PHYSICIAN STATEMENT Time of evaluation: 11:15 AM I saw and evaluated the patient. I reviewed the resident's note and discussed the case with the resident. I agree with the resident's findings and plan as documented. SUBJECTIVE: Patient seen and examined. no complaints. OBJECTIVE: Vital Signs Period Temp Pulse Resp BP Sys/Borrero Pulse Ox Last 24 Hr 97.8 F-98.2 F 75-82 18-20 109-132/67-75 99 Intake & Output 03/16/17 03/17/17 03/18/17 03/19/17 23:59 23:59 23:59 23:59 Intake Total 1510 1250 2000 700 Output Total 1100 1560 Balance 1510 150 440 700 General: sitting in bed in no acute distress CVS:S1S2 regular Extremities: right foot dressing Home Medication List Medication Instructions Recorded Confirmed Type Metformin HCl 500 mg PO BID 03/08/17 03/08/17 History Active Medications Generic Name Dose Route Start Last Admin Trade Name Freq PRN Reason Stop Dose Admin Acetaminophen 650 mg 03/11/17 18:20 03/11/17 20:47 Tylenol - PO 650 mg Q4H PRN Administration FEVER OR PAIN Amlodipine Besylate 5 mg 03/12/17 14:00 03/19/17 10:43 Norvasc - PO 5 mg DAILY MONTEZ Administration Heparin Sodium (Porcine) 5,000 unit 03/08/17 18:00 03/19/17 10:42 Heparin - SQ 5,000 unit Q8H-IV MONTEZ Administration CEFTRIAXONE IN IS-OSM DEXTROSE 2 gm in 50 mls @ 100 mls/hr 03/13/17 13:00 06/01 10:42 Ceftriaxone 2 Gm-D5w Bag IVPB 100 mls/hr DAILY MONTEZ Administration Insulin Aspart 1 vial 03/08/17 16:30 03/19/17 12:15 Novolog Vial Sliding Scale - SQ 4 units ACHS MONTEZ Administration Protocol Insulin Detemir 5 units 03/17/17 22:00 03/19/17 06:05 Levemir Vial SQ 5 units BID@0700,2200 MONTEZ Administration Lisinopril 10 mg 03/11/17 16:30 03/19/17 10:43 Prinivil PO 10 mg DAILY MONTEZ Administration Metronidazole 500 mg 03/13/17 14:00 03/19/17 14:03 Flagyl - PO 500 mg TID MONTEZ Administration Oxycodone HCl 5 mg 03/14/17 14:30 03/16/17 09:18 Roxicodone - PO 5 mg Q4H PRN Administration PAIN Laboratory Results - last 24 hr 03/18/17 03/18/17 03/18/17 15:30 17:59 21:52 POC Glucometer 142 327 Urine Color Ltyellow Urine Appearance Clear Urine pH 6.0 Ur Specific [place] 1.009 Urine Protein Negative Urine Glucose (UA) Negative Urine Ketones Negative Urine Blood Negative Urine Nitrite Negative Urine Bilirubin Negative Urine Urobilinogen Negative Ur Leukocyte Esterase Negative Urine WBC (Auto) 1 Urine RBC (Auto) <1 Hyaline Casts 2 03/19/17 03/19/17 06:04 12:14 POC Glucometer 239 244 Urine Color Urine Appearance Urine pH Ur Specific [place] Urine Protein Urine Glucose (UA) Urine Ketones Urine Blood Urine Nitrite Urine Bilirubin Urine Urobilinogen Ur Leukocyte Esterase Urine WBC (Auto) Urine RBC (Auto) Hyaline Casts Microbiology 03/11/17 12:40 Wound Gram Stain - Final 03/11/17 12:40 Wound Wound Culture - Final NO GROWTH AFTER 48 HOURS INCUBATION 03/08/17 11:34 Blood - Peripheral Venous Blood Culture - Final NO GROWTH AFTER 5 DAYS INCUBATION 03/08/17 11:34 Blood - Peripheral Venous Blood Culture - Final NO GROWTH AFTER 5 DAYS INCUBATION 03/08/17 18:50 Foot - Right Plantar Gram Stain - Final 03/08/17 18:50 Foot - Right Plantar Wound Culture - Final Morganella Morganii Proteus Mirabilis Enterococcus Faecalis 03/08/17 21:00 Foot - Right Dorsum Gram Stain - Final 03/08/17 21:00 Foot - Right Dorsum Wound Culture - Final Morganella Morganii Proteus Mirabilis Enterococcus Faecalis Staphylococcus Aureus Streptococcus Viridans ASSESSMENT AND PLAN: 56 yo M with NIDDM, comes with Right diabetic foot ulcer and cellulitis and likely osteomyelitis -Right 1st digit osteomyelitis and abscess/celullitis with gas forming organism , s/p I&D on 03/08 and 1st digit amputation 03/11 -Right foot sole ulcer s/p debridement -IDDM -HTN -Hyperkalemia, resolved -Pseudohyponatremia, resolved Plan: ceftriaxone IV and flagyl PO day 10, needs total 6 weeks. Ambulation with surgical boot, PT, WBAT -Levemir 5 units BID, titrate based on blood sugars, A1c 12.2, diabetic education. ISS, diabetic diet -Continue norvasc, lisinoopril -[id number] dispo pending medicaid and outpatient antibiotic arrangements. Letter was given earlier for embassy to extend patient's visa
--- NOTE | 2017-03-19 20:40 | PN ---
Physical Exam: SUBJECTIVE: Patient seen and examined. Pt denies chest pain, sob, abdominal pain, fever, chills. OBJECTIVE: Vital Signs Period Temp Pulse Resp BP Sys/Borrero Pulse Ox Last 24 Hr 97.8 F-98.3 F 74-82 18-20 109-130/67-75 99 GENERAL: The patient is awake, alert, and fully oriented, in no acute distress. LUNGS: Breath sounds equal, clear to auscultation bilaterally, no wheezes, no crackles, no accessory muscle use. HEART: Regular rate and rhythm, S1, S2 without murmur, rub or gallop. ABDOMEN: Soft, nontender, nondistended. EXTREMITIES: Right foot wrapped in dressing CDI, able to move toes. Left LE warm, well-perfused, no edema. PSYCH: Normal mood, normal affect. SKIN: Warm, dry, normal turgor, no rashes Laboratory Results - last 24 hr 03/18/17 03/18/17 03/19/17 15:30 21:52 06:04 POC Glucometer 327 239 Ur Leukocyte Esterase Negative 03/19/17 03/19/17 12:14 17:22 POC Glucometer 244 212 Ur Leukocyte Esterase Active Medications Generic Name Dose Route Start Last Admin Trade Name Freq PRN Reason Stop Dose Admin Acetaminophen 650 mg 03/11/17 18:20 03/11/17 20:47 Tylenol - PO 650 mg Q4H PRN Administration FEVER OR PAIN Amlodipine Besylate 5 mg 03/12/17 14:00 03/19/17 10:43 Norvasc - PO 5 mg DAILY MONTEZ Administration Heparin Sodium (Porcine) 5,000 unit 03/08/17 18:00 03/19/17 18:02 Heparin - SQ 5,000 unit Q8H-IV MONTEZ Administration CEFTRIAXONE IN IS-OSM DEXTROSE 2 gm in 50 mls @ 100 mls/hr 03/13/17 13:00 06/01 10:42 Ceftriaxone 2 Gm-D5w Bag IVPB 100 mls/hr DAILY MONTEZ Administration Insulin Aspart 1 vial 03/08/17 16:30 03/19/17 17:23 Novolog Vial Sliding Scale - SQ 4 units ACHS MONTEZ Administration Protocol Insulin Detemir 5 units 03/17/17 22:00 03/19/17 06:05 Levemir Vial SQ 5 units BID@0700,2200 MONTEZ Administration Lisinopril 10 mg 03/11/17 16:30 03/19/17 10:43 Prinivil PO 10 mg DAILY MONTEZ Administration Metronidazole 500 mg 03/13/17 14:00 03/19/17 14:03 Flagyl - PO 500 mg TID MONTEZ Administration Oxycodone HCl 5 mg 03/14/17 14:30 03/16/17 09:18 Roxicodone - PO 5 mg Q4H PRN Administration PAIN ASSESSMENT/PLAN: 56yo M with PMH of NIDDM, presents with Right diabetic foot ulcer and cellulitis /osteomyelitis. # Right great toe osteomyelitis, s/p Right great toe amputation on 03/11/17 - POD 8 - would care with betadine dressing changes daily per Dr. Slater ( 03/16/17) - Day 7 of IV Ceftriaxone - Flagyl po TID (Day 10 of antibiotics) - pain management with Oxycodone prn and Tylenol prn - pt encouraged to take pain medication if needed # NIDDM - BGMs - Novolog SSI - Levemir 5U BID - diet education provided by RD # htn - continue Lisinopril and Norvasc # FEN - Fluids: po - Electrolytes: wnl, continue to monitor - Nutrition: diabetic diet # Prophylaxis - DVT ppx with Heparin - deconditioning ppx with PT - ambulation with surgical boot, WBAT # dispo - pt is clinically optimized for discharge - emergency medicaid pending - letter given to extend VISA 2/2 continued necessary medical treatment - will need 6 weeks antibiotics in total Visit type - Emergency Visit Emergency Visit: Yes ED Registration Date: 03/08/17 Care time: The patient presented to the Emergency Department on the above date and was hospitalized for further evaluation of their emergent condition. - New Patient This patient is new to me today: No - Critical Care Critical Care patient: No
[2017-03-20] MEDS: HEPARIN NA (PORCINE) 5,000 UNITS/ML 1ML VIAL SQ SCH ×3 (01:51→19:48)
[2017-03-20] MEDS: INSULIN SLIDING SCALE (NOVOLOG) 1 VIAL SQ SCH ×4 (06:54→21:29)
[2017-03-20] MEDS: INSULIN DETEMIR 100 UNITS/ML MDV SQ SCH ×2 (06:54→21:29)
[2017-03-20] MEDS: metroNIDAZOLE 250 MG TABLET PO SCH ×3 (06:55→21:27)
[2017-03-20] MEDS ORDERED: PT OWN MED DRAWER 7, Y5N ONE (10:30)
[2017-03-20] MEDS: CEFTRIAXONE IN IS-OSM DEXTROSE 2 GM/50 ML BAG IVPB SCH (10:33)
[2017-03-20] MEDS: amLODIPine BESYLATE 5 MG TABLET (FP) PO SCH (10:33)
[2017-03-20] MEDS: LISINOPRIL 10 MG TABLET (FP) PO SCH (10:33)
--- NOTE | 2017-03-20 13:12 | PN ---
Physical Exam: SUBJECTIVE: Patient seen and examined. Pt denies chest pain, sob, abdominal pain, fever, chills. No events overnight. OBJECTIVE: Vital Signs Period Temp Pulse Resp BP Sys/Borrero Pulse Ox Last 24 Hr 97.3 F-98.3 F 74-82 18-20 104-122/58-75 100 GENERAL: The patient is awake, alert, and fully oriented, in no acute distress. LUNGS: Breath sounds equal, clear to auscultation bilaterally, no wheezes, no crackles, no accessory muscle use. HEART: Regular rate and rhythm, S1, S2 without murmur, rub or gallop. ABDOMEN: Soft, nontender, nondistended. EXTREMITIES: Right foot wrapped in dressing CDI, able to move toes. Left LE warm, well-perfused, no edema. PSYCH: Normal mood, normal affect. SKIN: Warm, dry, normal turgor, no rashes Laboratory Results - last 24 hr 03/19/17 03/19/17 03/20/17 17:22 22:21 06:52 POC Glucometer 212 191 199 03/20/17 11:56 POC Glucometer 194 Active Medications Generic Name Dose Route Start Last Admin Trade Name Freq PRN Reason Stop Dose Admin Acetaminophen 650 mg 03/11/17 18:20 03/11/17 20:47 Tylenol - PO 650 mg Q4H PRN Administration FEVER OR PAIN Amlodipine Besylate 5 mg 03/12/17 14:00 03/20/17 10:33 Norvasc - PO 5 mg DAILY MONTEZ Administration Heparin Sodium (Porcine) 5,000 unit 03/08/17 18:00 03/20/17 10:33 Heparin - SQ 5,000 unit Q8H-IV MONTEZ Administration CEFTRIAXONE IN IS-OSM DEXTROSE 2 gm in 50 mls @ 100 mls/hr 03/13/17 13:00 07/02 10:33 Ceftriaxone 2 Gm-D5w Bag IVPB 100 mls/hr DAILY MONTEZ Administration Insulin Aspart 1 vial 03/08/17 16:30 03/20/17 11:56 Novolog Vial Sliding Scale - SQ 2 units ACHS MONTEZ Administration Protocol Insulin Detemir 8 units 03/20/17 22:00 Levemir Vial SQ BID@0700,2200 MONTEZ Lisinopril 10 mg 03/11/17 16:30 01/04/18 10:33 Prinivil PO 10 mg DAILY MONTEZ Administration Metronidazole 500 mg 03/13/17 14:00 03/20/17 06:55 Flagyl - PO 500 mg TID MONTEZ Administration Oxycodone HCl 5 mg 03/14/17 14:30 03/16/17 09:18 Roxicodone - PO 5 mg Q4H PRN Administration PAIN ASSESSMENT/PLAN: 56yo M with PMH of NIDDM, presents with Right diabetic foot ulcer and cellulitis /osteomyelitis. # Right great toe osteomyelitis, s/p Right great toe amputation on 03/11/17 - POD 9 - would care with betadine dressing changes daily per Dr. Slater ( 03/16/17) - Day 8 of IV Ceftriaxone - Flagyl po TID (Day 11 of antibiotics) - pain management with Oxycodone prn and Tylenol prn - pt encouraged to take pain medication if needed # NIDDM - BGMs - Novolog SSI - Levemir 8U BID # htn - continue Lisinopril and Norvasc # FEN - Fluids: po - Electrolytes: wnl, continue to monitor - Nutrition: diabetic diet # Prophylaxis - DVT ppx with Heparin - deconditioning ppx with PT - ambulation with surgical boot, WBAT # dispo - pt is clinically optimized for discharge - emergency medicaid pending - letter given to extend VISA 2/2 continued necessary medical treatment - will need 6 weeks antibiotics in total Visit type - Emergency Visit Emergency Visit: Yes ED Registration Date: 03/08/17 Care time: The patient presented to the Emergency Department on the above date and was hospitalized for further evaluation of their emergent condition. - New Patient This patient is new to me today: No - Critical Care Critical Care patient: No
--- NOTE | 2017-03-20 14:49 | PN ---
Teaching Attending Note Name of Resident: Leslie Logan ATTENDING PHYSICIAN STATEMENT Time of evaluation: 11:55 AM I saw and evaluated the patient. I reviewed the resident's note and discussed the case with the resident. I agree with the resident's findings and plan as documented. SUBJECTIVE: patient seen and examined. no complaints. OBJECTIVE: Vital Signs Period Temp Pulse Resp BP Sys/Borrero Pulse Ox Last 24 Hr 97.3 F-98.3 F 74-82 18-20 104-122/58-75 100 Intake & Output 03/17/17 03/18/17 03/19/17 03/20/17 23:59 23:59 23:59 23:59 Intake Total 1250 2000 1750 Output Total 1100 1560 Balance 000 229 0577 General: sitting in bed in no acute distress extremities: right foot dressing, no concerns Home Medication List Medication Instructions Recorded Confirmed Type Metformin HCl 500 mg PO BID 03/08/17 03/08/17 History Active Medications Generic Name Dose Route Start Last Admin Trade Name Freq PRN Reason Stop Dose Admin Acetaminophen 650 mg 03/11/17 18:20 03/11/17 20:47 Tylenol - PO 650 mg Q4H PRN Administration FEVER OR PAIN Amlodipine Besylate 5 mg 03/12/17 14:00 03/20/17 10:33 Norvasc - PO 5 mg DAILY MONTEZ Administration Heparin Sodium (Porcine) 5,000 unit 03/08/17 18:00 03/20/17 10:33 Heparin - SQ 5,000 unit Q8H-IV MONTEZ Administration CEFTRIAXONE IN IS-OSM DEXTROSE 2 gm in 50 mls @ 100 mls/hr 03/13/17 13:00 07/02 10:33 Ceftriaxone 2 Gm-D5w Bag IVPB 100 mls/hr DAILY MONTEZ Administration Insulin Aspart 1 vial 03/08/17 16:30 03/20/17 11:56 Novolog Vial Sliding Scale - SQ 2 units ACHS MONTEZ Administration Protocol Insulin Detemir 8 units 03/20/17 22:00 Levemir Vial SQ BID@0700,2200 MONTEZ Lisinopril 10 mg 03/11/17 16:30 03/20/17 10:33 Prinivil PO 10 mg DAILY MONTEZ Administration Metronidazole 500 mg 03/13/17 14:00 03/20/17 13:52 Flagyl - PO 500 mg TID MONTEZ Administration Oxycodone HCl 5 mg 03/14/17 14:30 03/16/17 09:18 Roxicodone - PO 5 mg Q4H PRN Administration PAIN Laboratory Results - last 24 hr 03/19/17 03/19/17 03/20/17 17:22 22:21 06:52 POC Glucometer 212 191 199 03/20/17 11:56 POC Glucometer 194 Microbiology 03/11/17 12:40 Wound Gram Stain - Final 03/11/17 12:40 Wound Wound Culture - Final NO GROWTH AFTER 48 HOURS INCUBATION 03/08/17 11:34 Blood - Peripheral Venous Blood Culture - Final NO GROWTH AFTER 5 DAYS INCUBATION 03/08/17 11:34 Blood - Peripheral Venous Blood Culture - Final NO GROWTH AFTER 5 DAYS INCUBATION 03/08/17 18:50 Foot - Right Plantar Gram Stain - Final 03/08/17 18:50 Foot - Right Plantar Wound Culture - Final Morganella Morganii Proteus Mirabilis Enterococcus Faecalis 03/08/17 21:00 Foot - Right Dorsum Gram Stain - Final 03/08/17 21:00 Foot - Right Dorsum Wound Culture - Final Morganella Morganii Proteus Mirabilis Enterococcus Faecalis Staphylococcus Aureus Streptococcus Viridans ASSESSMENT AND PLAN: 56 yo M with NIDDM, comes with Right diabetic foot ulcer and cellulitis and likely osteomyelitis -Right 1st digit osteomyelitis and abscess/celullitis with gas forming organism , s/p I&D on 03/08 and 1st digit amputation 03/11 -Right foot sole ulcer s/p debridement -IDDM -HTN -Hyperkalemia, resolved -Pseudohyponatremia, resolved Plan: ceftriaxone IV and flagyl PO day . Ambulation with surgical boot, PT, WBAT -Increase levemir to 8 units BID, titrate based on blood sugars, A1c 12.2, diabetic education. ISS, diabetic diet -Continue norvasc, lisinoopril -DVTTPPX dispo pending medicaid and outpatient antibiotic arrangements. Letter was given earlier for embassy to extend patient's visa
[2017-03-21] MEDS: HEPARIN NA (PORCINE) 5,000 UNITS/ML 1ML VIAL SQ SCH ×3 (01:27→19:08)
[2017-03-21] MEDS: metroNIDAZOLE 250 MG TABLET PO SCH ×3 (05:40→21:12)
[2017-03-21] MEDS: INSULIN SLIDING SCALE (NOVOLOG) 1 VIAL SQ SCH ×4 (06:05→21:38)
[2017-03-21] MEDS: INSULIN DETEMIR 100 UNITS/ML MDV SQ SCH ×2 (06:33→21:13)
[2017-03-21] MEDS ORDERED: PT OWN MED DRAWER 7, Y5N ONE (09:23)
[2017-03-21] MEDS: amLODIPine BESYLATE 5 MG TABLET (FP) PO SCH (09:27)
[2017-03-21] MEDS: CEFTRIAXONE IN IS-OSM DEXTROSE 2 GM/50 ML BAG IVPB SCH (09:27)
[2017-03-21] MEDS: LISINOPRIL 10 MG TABLET (FP) PO SCH (09:27)
--- NOTE | 2017-03-21 15:18 | PN ---
Physical Exam: SUBJECTIVE: Patient seen and examined. Pt feels well. Pt denies chest pain, sob, abdominal pain, fever, chills. No events overnight. OBJECTIVE: Vital Signs Period Temp Pulse Resp BP Sys/Borrero Pulse Ox Last 24 Hr 98.0 F-98.4 F 73-82 18-18 104-135/61-92 100 GENERAL: The patient is awake, alert, and fully oriented, in no acute distress. LUNGS: Breath sounds equal, clear to auscultation bilaterally, no wheezes, no crackles, no accessory muscle use. HEART: Regular rate and rhythm, S1, S2 without murmur, rub or gallop. ABDOMEN: Soft, nontender, nondistended. EXTREMITIES: Right foot wrapped in dressing CDI, able to move toes. Left LE warm, well-perfused, no edema. PSYCH: Normal mood, normal affect. Laboratory Results - last 24 hr 03/20/17 03/20/17 03/21/17 17:54 21:28 05:37 POC Glucometer 171 228 97 03/21/17 12:05 POC Glucometer 138 Active Medications Generic Name Dose Route Start Last Admin Trade Name Freq PRN Reason Stop Dose Admin Acetaminophen 650 mg 03/11/17 18:20 03/11/17 20:47 Tylenol - PO 650 mg Q4H PRN Administration FEVER OR PAIN Amlodipine Besylate 5 mg 03/12/17 14:00 03/21/17 09:27 Norvasc - PO 5 mg DAILY OMNTEZ Administration Heparin Sodium (Porcine) 5,000 unit 03/08/17 18:00 03/21/17 09:27 Heparin - SQ 5,000 unit Q8H-IV MONTEZ Administration CEFTRIAXONE IN IS-OSM DEXTROSE 2 gm in 50 mls @ 100 mls/hr 03/13/17 13:00 08/01 09:27 Ceftriaxone 2 Gm-D5w Bag IVPB 100 mls/hr DAILY MONTEZ Administration Insulin Aspart 1 vial 03/08/17 16:30 03/21/17 12:17 Novolog Vial Sliding Scale - SQ Not Given ACHS [facility] Protocol Insulin Detemir 8 units 03/20/17 22:00 03/21/17 06:33 Levemir Vial SQ 8 units BID@0700,2200 MONTEZ Administration Lisinopril 10 mg 03/11/17 16:30 03/21/17 09:27 Prinivil PO 10 mg DAILY MONTEZ Administration Metronidazole 500 mg 03/13/17 14:00 03/21/17 14:42 Flagyl - PO 500 mg TID MONTEZ Administration Oxycodone HCl 5 mg 03/14/17 14:30 03/16/17 09:18 Roxicodone - PO 5 mg Q4H PRN Administration PAIN ASSESSMENT/PLAN: 56yo M with PMH of NIDDM, presents with Right diabetic foot ulcer and cellulitis /osteomyelitis. # Right great toe osteomyelitis, s/p Right great toe amputation on 03/11/17 - POD 10 - would care with betadine dressing changes daily per Dr. Slater (03/16/17) - Day 9 of IV Ceftriaxone - Flagyl po TID (Day 12 of antibiotics) - pain management with Oxycodone prn and Tylenol prn - pt encouraged to take pain medication if needed # NIDDM - BGMs - Novolog SSI - Levemir 8U BID # htn - continue Lisinopril and Norvasc # FEN - Fluids: po - Electrolytes: wnl - Nutrition: diabetic diet # Prophylaxis - DVT ppx with Heparin - deconditioning ppx with PT - ambulation with surgical boot, WBAT # dispo - pt is clinically optimized for discharge - emergency medicaid pending - letter given to extend VISA 2/2 continued necessary medical treatment - will need 6 weeks antibiotics in total Visit type - Emergency Visit Emergency Visit: Yes ED Registration Date: 03/08/17 Care time: The patient presented to the Emergency Department on the above date and was hospitalized for further evaluation of their emergent condition. - New Patient This patient is new to me today: No - Critical Care Critical Care patient: No
--- NOTE | 2017-03-21 17:42 | PN ---
Teaching Attending Note Name of Resident: Leslie Logan ATTENDING PHYSICIAN STATEMENT Time of evaluation: 12:30 PM I saw and evaluated the patient. I reviewed the resident's note and discussed the case with the resident. I agree with the resident's findings and plan as documented. SUBJECTIVE: Patient seen and examined, no complaints. OBJECTIVE: Vital Signs Period Temp Pulse Resp BP Sys/Borrero Pulse Ox Last 24 Hr 98.1 F-98.4 F 73-82 18-18 104-135/61-92 100-100 Intake & Output 03/18/17 03/19/17 03/20/17 03/21/17 23:59 23:59 23:59 23:59 Intake Total 2000 1750 400 50 Output Total 1560 200 Balance 440 1750 200 50 General: sitting in bed in no acute distress extremities: right foot dressing with surgical shoe Home Medication List Medication Instructions Recorded Confirmed Type Metformin HCl 500 mg PO BID 03/08/17 03/08/17 History Active Medications Generic Name Dose Route Start Last Admin Trade Name Freq PRN Reason Stop Dose Admin Acetaminophen 650 mg 03/11/17 18:20 03/11/17 20:47 Tylenol - PO 650 mg Q4H PRN Administration FEVER OR PAIN Amlodipine Besylate 5 mg 03/12/17 14:00 03/21/17 09:27 Norvasc - PO 5 mg DAILY MONTEZ Administration Heparin Sodium (Porcine) 5,000 unit 03/08/17 18:00 03/21/17 09:27 Heparin - SQ 5,000 unit Q8H-IV MONTEZ Administration CEFTRIAXONE IN IS-OSM DEXTROSE 2 gm in 50 mls @ 100 mls/hr 03/13/17 13:00 08/01 09:27 Ceftriaxone 2 Gm-D5w Bag IVPB 100 mls/hr DAILY MONTEZ Administration Insulin Aspart 1 vial 03/08/17 16:30 03/21/17 12:17 Novolog Vial Sliding Scale - SQ Not Given ACHS MONTEZ Protocol Insulin Detemir 8 units 03/20/17 22:00 03/21/17 06:33 Levemir Vial SQ 8 units BID@0700,2200 MONTEZ Administration Lisinopril 10 mg 03/11/17 16:30 03/21/17 09:27 Prinivil PO 10 mg DAILY MONTEZ Administration Metronidazole 500 mg 03/13/17 14:00 03/21/17 14:42 Flagyl - PO 500 mg TID MONTEZ Administration Oxycodone HCl 5 mg 03/14/17 14:30 03/16/17 09:18 Roxicodone - PO 5 mg Q4H PRN Administration PAIN Laboratory Results - last 24 hr 03/20/17 03/20/17 03/21/17 17:54 21:28 05:37 POC Glucometer 171 228 97 03/21/17 03/21/17 12:05 17:12 POC Glucometer 138 181 Microbiology 03/11/17 12:40 Wound Gram Stain - Final 03/11/17 12:40 Wound Wound Culture - Final NO GROWTH AFTER 48 HOURS INCUBATION 03/08/17 11:34 Blood - Peripheral Venous Blood Culture - Final NO GROWTH AFTER 5 DAYS INCUBATION 03/08/17 11:34 Blood - Peripheral Venous Blood Culture - Final NO GROWTH AFTER 5 DAYS INCUBATION 03/08/17 18:50 Foot - Right Plantar Gram Stain - Final 03/08/17 18:50 Foot - Right Plantar Wound Culture - Final Morganella Morganii Proteus Mirabilis Enterococcus Faecalis 03/08/17 21:00 Foot - Right Dorsum Gram Stain - Final 03/08/17 21:00 Foot - Right Dorsum Wound Culture - Final Morganella Morganii Proteus Mirabilis Enterococcus Faecalis Staphylococcus Aureus Streptococcus Viridans ASSESSMENT AND PLAN: 56 yo M with NIDDM, comes with Right diabetic foot ulcer and cellulitis and likely osteomyelitis -Right 1st digit osteomyelitis and abscess/celullitis with gas forming organism , s/p I&D on 03/08 and 1st digit amputation 03/11 -Right foot sole ulcer s/p debridement -IDDM -HTN -Hyperkalemia, resolved -Pseudohyponatremia, resolved Plan: ceftriaxone IV and flagyl PO day . Ambulation with surgical boot, PT, WBAT -Increase levemir to 8 units BID, titrate based on blood sugars, A1c 12.2, diabetic education. ISS, diabetic diet -Continue norvasc, lisinoopril -DVTTPPX dispo pending medicaid and outpatient antibiotic arrangements. Letter was given earlier for embassy to extend patient's visa
[2017-03-22] MEDS: HEPARIN NA (PORCINE) 5,000 UNITS/ML 1ML VIAL SQ SCH ×3 (01:05→17:30)
[2017-03-22] MEDS: metroNIDAZOLE 250 MG TABLET PO SCH ×3 (05:59→22:04)
[2017-03-22] MEDS: INSULIN SLIDING SCALE (NOVOLOG) 1 VIAL SQ SCH ×4 (06:08→22:04)
[2017-03-22] MEDS: INSULIN DETEMIR 100 UNITS/ML MDV SQ SCH ×2 (06:08→22:06)
[2017-03-22] MEDS ORDERED: PT OWN MED DRAWER 7, Y5N ONE (09:03)
[2017-03-22] MEDS: LISINOPRIL 10 MG TABLET (FP) PO SCH (09:06)
[2017-03-22] MEDS: amLODIPine BESYLATE 5 MG TABLET (FP) PO SCH (09:06)
[2017-03-22] MEDS: CEFTRIAXONE IN IS-OSM DEXTROSE 2 GM/50 ML BAG IVPB SCH (09:06)
[2017-03-22] MEDS ORDERED: INSULIN (NOVOLOG) ASPART 100 UNITS/ML 10ML VIAL ONE (11:43)
--- NOTE | 2017-03-22 12:34 | PN ---
Teaching Attending Note Name of Resident: . ATTENDING PHYSICIAN STATEMENT Time of evaluation: 8:40 AM I saw and evaluated the patient. I reviewed the resident's note and discussed the case with the resident. I agree with the resident's findings and plan as documented. SUBJECTIVE: Patient seen and examined, no complaints. OBJECTIVE: Vital Signs Period Temp Pulse Resp BP Sys/Borrero Pulse Ox Last 24 Hr 98 F-98.1 F 68-73 20-20 122-128/65-77 98-98 Intake & Output 03/19/17 03/20/17 03/21/17 03/22/17 23:59 23:59 23:59 23:59 Intake Total 1750 400 50 350 Output Total 200 300 Balance 1750 200 50 50 general: sitting in bed, in no acute distress Extremities; right foot dressing with surgical boot Abdomen: soft, NT, ND Chest: CTAB, no rales or wheezing Home Medication List Medication Instructions Recorded Confirmed Type Metformin HCl 500 mg PO BID 03/08/17 03/08/17 History Active Medications Generic Name Dose Route Start Last Admin Trade Name Freq PRN Reason Stop Dose Admin Acetaminophen 650 mg 03/11/17 18:20 03/11/17 20:47 Tylenol - PO 650 mg Q4H PRN Administration FEVER OR PAIN Amlodipine Besylate 5 mg 03/12/17 14:00 03/22/17 09:06 Norvasc - PO 5 mg DAILY MONTEZ Administration Heparin Sodium (Porcine) 5,000 unit 03/08/17 18:00 03/22/17 09:06 Heparin - SQ 5,000 unit Q8H-IV MONTEZ Administration CEFTRIAXONE IN IS-OSM DEXTROSE 2 gm in 50 mls @ 100 mls/hr 03/13/17 13:00 09/01 09:06 Ceftriaxone 2 Gm-D5w Bag IVPB 100 mls/hr DAILY MONTEZ Administration Insulin Aspart 1 vial 03/08/17 16:30 03/22/17 11:44 Novolog Vial Sliding Scale - SQ 2 units ACHS MONTEZ Administration Protocol Insulin Detemir 8 units 03/20/17 22:00 03/22/17 06:08 Levemir Vial SQ 8 units BID@0700,2200 MONTEZ Administration Lisinopril 10 mg 03/11/17 16:30 03/22/17 09:06 Prinivil PO 10 mg DAILY MONTEZ Administration Metronidazole 500 mg 03/13/17 14:00 03/22/17 05:59 Flagyl - PO 500 mg TID MONTEZ Administration Oxycodone HCl 5 mg 03/14/17 14:30 03/16/17 09:18 Roxicodone - PO 5 mg Q4H PRN Administration PAIN Laboratory Results - last 24 hr 03/21/17 03/21/17 03/22/17 17:12 21:10 05:57 POC Glucometer 181 287 159 03/22/17 11:39 POC Glucometer 172 Microbiology 03/11/17 12:40 Wound Gram Stain - Final 03/11/17 12:40 Wound Wound Culture - Final NO GROWTH AFTER 48 HOURS INCUBATION 03/08/17 11:34 Blood - Peripheral Venous Blood Culture - Final NO GROWTH AFTER 5 DAYS INCUBATION 03/08/17 11:34 Blood - Peripheral Venous Blood Culture - Final NO GROWTH AFTER 5 DAYS INCUBATION 03/08/17 18:50 Foot - Right Plantar Gram Stain - Final 03/08/17 18:50 Foot - Right Plantar Wound Culture - Final Morganella Morganii Proteus Mirabilis Enterococcus Faecalis 03/08/17 21:00 Foot - Right Dorsum Gram Stain - Final 03/08/17 21:00 Foot - Right Dorsum Wound Culture - Final Morganella Morganii Proteus Mirabilis Enterococcus Faecalis Staphylococcus Aureus Streptococcus Viridans ASSESSMENT AND PLAN: 56 yo M with NIDDM, comes with Right diabetic foot ulcer and cellulitis and likely osteomyelitis -Right 1st digit osteomyelitis and abscess/celullitis with gas forming organism , s/p I&D on 03/08 and 1st digit amputation 03/11 -Right foot sole ulcer s/p debridement -IDDM -HTN -Hyperkalemia, resolved -Pseudohyponatremia, resolved Plan: ceftriaxone IV and flagyl PO day . Ambulation with surgical boot, PT, WBAT.D/c narcotics. -Increase levemir to 8 units BID, titrate based on blood sugars, A1c 12.2, diabetic education. ISS, diabetic diet -Continue norvasc, lisinoopril -DVTTPPX dispo pending medicaid and outpatient antibiotic arrangements. Letter was given earlier for embassy to extend patient's visa
[2017-03-23] MEDS: HEPARIN NA (PORCINE) 5,000 UNITS/ML 1ML VIAL SQ SCH ×3 (02:43→18:21)
[2017-03-23] MEDS: metroNIDAZOLE 250 MG TABLET PO SCH ×3 (06:05→22:44)
[2017-03-23] MEDS: INSULIN SLIDING SCALE (NOVOLOG) 1 VIAL SQ SCH ×4 (06:05→22:44)
[2017-03-23] MEDS: INSULIN DETEMIR 100 UNITS/ML MDV SQ SCH (08:10)
[2017-03-23] MEDS ORDERED: PT OWN MED DRAWER 7, Y5N ONE (09:03)
[2017-03-23] MEDS: CEFTRIAXONE IN IS-OSM DEXTROSE 2 GM/50 ML BAG IVPB SCH (09:12)
[2017-03-23] MEDS: LISINOPRIL 10 MG TABLET (FP) PO SCH (09:12)
[2017-03-23] MEDS: amLODIPine BESYLATE 5 MG TABLET (FP) PO SCH (09:12)
--- NOTE | 2017-03-23 11:30 | PN ---
Teaching Attending Note Name of Resident: . ATTENDING PHYSICIAN STATEMENT SUBJECTIVE: Patient seen and examined. No complaints. OBJECTIVE: Vital Signs Period Temp Pulse Resp BP Sys/Borrero Pulse Ox Last 24 Hr 97.1 F-98.3 F 71-93 18-20 105-132/58-75 100-100 Intake & Output 03/20/17 03/21/17 03/22/17 03/23/17 23:59 23:59 23:59 23:59 Intake Total 251 77 3481 400 Output Total 200 300 Balance 887 86 1451 400 General: sitting in bed, no acute distress Extremities: right leg dressing, surgical boot Abdomen: soft, NT Chest: No rales or wheezing Home Medication List Medication Instructions Recorded Confirmed Type Metformin HCl 500 mg PO BID 03/08/17 03/08/17 History Active Medications Generic Name Dose Route Start Last Admin Trade Name Freq PRN Reason Stop Dose Admin Acetaminophen 650 mg 03/11/17 18:20 03/11/17 20:47 Tylenol - PO 650 mg Q4H PRN Administration FEVER OR PAIN Amlodipine Besylate 5 mg 03/12/17 14:00 03/23/17 09:12 Norvasc - PO 5 mg DAILY MONTEZ Administration Heparin Sodium (Porcine) 5,000 unit 03/08/17 18:00 03/23/17 09:12 Heparin - SQ 5,000 unit Q8H-IV MONTEZ Administration CEFTRIAXONE IN IS-OSM DEXTROSE 2 gm in 50 mls @ 100 mls/hr 03/13/17 13:00 10/01 09:12 Ceftriaxone 2 Gm-D5w Bag IVPB 100 mls/hr DAILY MONTEZ Administration Insulin Aspart 1 vial 03/08/17 16:30 03/23/17 06:05 Novolog Vial Sliding Scale - SQ Not Given [facility] Protocol Insulin Detemir 8 units 03/20/17 22:00 03/23/17 08:10 Levemir Vial SQ 8 units BID@0700,2200 MONTEZ Administration Lisinopril 10 mg 03/11/17 16:30 03/23/17 09:12 Prinivil PO 10 mg DAILY MONTEZ Administration Metronidazole 500 mg 03/13/17 14:00 03/23/17 06:05 Flagyl - PO 500 mg TID MONTEZ Administration Laboratory Results - last 24 hr 03/22/17 03/22/17 03/22/17 11:39 17:15 22:02 POC Glucometer 172 147 226 03/23/17 06:01 POC Glucometer 83 Microbiology 03/11/17 12:40 Wound Gram Stain - Final 03/11/17 12:40 Wound Wound Culture - Final NO GROWTH AFTER 48 HOURS INCUBATION 03/08/17 11:34 Blood - Peripheral Venous Blood Culture - Final NO GROWTH AFTER 5 DAYS INCUBATION 03/08/17 11:34 Blood - Peripheral Venous Blood Culture - Final NO GROWTH AFTER 5 DAYS INCUBATION 03/08/17 18:50 Foot - Right Plantar Gram Stain - Final 03/08/17 18:50 Foot - Right Plantar Wound Culture - Final Morganella Morganii Proteus Mirabilis Enterococcus Faecalis 03/08/17 21:00 Foot - Right Dorsum Gram Stain - Final 03/08/17 21:00 Foot - Right Dorsum Wound Culture - Final Morganella Morganii Proteus Mirabilis Enterococcus Faecalis Staphylococcus Aureus Streptococcus Viridans ASSESSMENT AND PLAN: 56 yo M with NIDDM, comes with Right diabetic foot ulcer and cellulitis and likely osteomyelitis -Right 1st digit osteomyelitis and abscess/celullitis with gas forming organism , s/p I&D on 03/08 and 1st digit amputation 03/11 -Right foot sole ulcer s/p debridement -IDDM -HTN -Hyperkalemia, resolved -Pseudohyponatremia, resolved Plan: ceftriaxone IV and flagyl PO day . Ambulation with surgical boot, PT, WBAT. Off narcotics. -Will d/c levemir now as out of acute infection. To ensure affordability and compliance, trial with metformin 500 mg BID (starting today) and glipizide 2.5 mg BID (starting tomorrow) to see if able to tolerate and blood sugars stable., A1c 12.2, diabetic education. ISS, diabetic diet -Continue norvasc, lisinopril -DVTTPPX dispo pending medicaid and outpatient antibiotic arrangements. Letter was given earlier for embassy to extend patient's visa
[2017-03-23] MEDS: metFORMIN HCL 500 MG TABLET (FP) PO SCH (17:14)
[2017-03-24] MEDS: HEPARIN NA (PORCINE) 5,000 UNITS/ML 1ML VIAL SQ SCH ×3 (03:06→17:30)
[2017-03-24] MEDS: metFORMIN HCL 500 MG TABLET (FP) PO SCH ×2 (06:52→17:28)
[2017-03-24] MEDS: glipiZIDE 5 MG TABLET (FP) PO SCH ×2 (06:52→17:28)
[2017-03-24] MEDS: metroNIDAZOLE 250 MG TABLET PO SCH ×3 (06:52→21:13)
[2017-03-24] MEDS: INSULIN SLIDING SCALE (NOVOLOG) 1 VIAL SQ SCH ×4 (06:54→21:13)
[2017-03-24 09:02] LABS: ANION GAP 6 (8-16); BLOOD UREA NITROGEN 24 mg/dL (7-18); CALCIUM 9.4 mg/dL (8.5-10.1); CHLORIDE 102 mmol/L (98-107); CO2 29 mmol/L (21-32); CREATININE 1.2 mg/dL (0.7-1.3); GLUCOSE,RANDOM 132 mg/dL (74-106); POTASSIUM 5.4 mmol/L (3.5-5.1); SODIUM 137 mmol/L (136-145)
[2017-03-24] MEDS: amLODIPine BESYLATE 5 MG TABLET (FP) PO SCH (10:11)
[2017-03-24] MEDS: LISINOPRIL 10 MG TABLET (FP) PO SCH (10:11)
[2017-03-24] MEDS ORDERED: SODIUM POLYSTYRENE SULFONATE 15 GM/60 ML BOTTLE PO ONE (10:57)
[2017-03-24] MEDS: CEFTRIAXONE IN IS-OSM DEXTROSE 2 GM/50 ML BAG IVPB SCH (10:58)
--- NOTE | 2017-03-24 12:13 | EKG ---
Test Reason : Blood Pressure : / mmHG Vent. Rate : 077 BPM Atrial Rate : 077 BPM P-R Int : 136 ms QRS Dur : 080 ms QT Int : 352 ms P-R-T Axes : 063 034 -60 degrees QTc Int : 398 ms NORMAL SINUS RHYTHM T WAVE ABNORMALITY, CONSIDER INFERIOR ISCHEMIA ABNORMAL ECG WHEN COMPARED WITH ECG OF 08-MAR-2017 14:46, T WAVE VARIATION Confirmed by PATRIC OLIVEIRA MD ([id number]) on 03/24/2017 12:13:03 PM Referred By: Confirmed By:PATRIC OLIVEIRA MD
[2017-03-24] MEDS ORDERED: SODIUM CHLORIDE 1,000 ML IV STA (13:35)
--- NOTE | 2017-03-24 13:37 | PN ---
Physical Exam: SUBJECTIVE: Patient seen and examined. Pt feels well. Pt denies chest pain, sob, abdominal pain, fever, chills. No events overnight. OBJECTIVE: Vital Signs Period Temp Pulse Resp BP Sys/Borrero Pulse Ox Last 24 Hr 98 F-98.2 F 72-89 16-20 123-147/50-86 100-100 GENERAL: The patient is awake, alert, and fully oriented, in no acute distress. LUNGS: Breath sounds equal, clear to auscultation bilaterally, no wheezes, no crackles, no accessory muscle use. HEART: Regular rate and rhythm, S1, S2 without murmur, rub or gallop. ABDOMEN: Soft, nontender, nondistended. EXTREMITIES: Right foot wrapped in dressing CDI, able to move toes. Left LE warm, well-perfused, no edema. PSYCH: Normal mood, normal affect. Laboratory Results - last 24 hr 03/23/17 03/23/17 03/24/17 16:43 22:43 06:54 Sodium Potassium Chloride Carbon Dioxide Anion Gap BUN Creatinine POC Glucometer 135 228 126 Random Glucose Calcium 03/24/17 03/24/17 07:00 11:53 Sodium 137 Potassium 5.4 H Chloride 102 Carbon Dioxide 29 Anion Gap 6 L BUN 24 H D Creatinine 1.2 POC Glucometer 140 Random Glucose 132 H Calcium 9.4 Active Medications Generic Name Dose Route Start Last Admin Trade Name Freq PRN Reason Stop Dose Admin Acetaminophen 650 mg 03/11/17 18:20 03/11/17 20:47 Tylenol - PO 650 mg Q4H PRN Administration FEVER OR PAIN Amlodipine Besylate 5 mg 03/12/17 14:00 03/24/17 10:11 Norvasc - PO 5 mg DAILY MONTEZ Administration Glipizide 2.5 mg 03/24/17 07:00 03/24/17 06:52 Glucotrol - PO 2.5 mg BID@0700,1630 MONTEZ Administration Heparin Sodium (Porcine) 5,000 unit 03/08/17 18:00 03/24/17 10:11 Heparin - SQ 5,000 unit Q8H-IV MONTEZ Administration CEFTRIAXONE IN IS-OSM DEXTROSE 2 gm in 50 mls @ 100 mls/hr 03/13/17 13:00 11/01 10:58 Ceftriaxone 2 Gm-D5w Bag IVPB 100 mls/hr DAILY MONTEZ Administration Insulin Aspart 1 vial 03/08/17 16:30 03/24/17 11:54 Novolog Vial Sliding Scale - SQ Not Given [facility] Protocol Lisinopril 10 mg 03/11/17 16:30 03/24/17 10:11 Prinivil PO 10 mg DAILY MONTEZ Administration Metformin HCl 500 mg 03/23/17 16:30 03/24/17 06:52 Glucophage - PO 500 mg BID@0700,1630 MONTEZ Administration Metronidazole 500 mg 03/13/17 14:00 03/24/17 06:52 Flagyl - PO 500 mg TID MONTEZ Administration ASSESSMENT/PLAN: 56yo M with PMH of NIDDM, presents with Right diabetic foot ulcer and cellulitis /osteomyelitis. # Right great toe osteomyelitis, s/p Right great toe amputation on 03/11/17 - POD 13 - would care with betadine dressing changes daily per Dr. Slater (03/16/17) - Day 12 of IV Ceftriaxone - Flagyl po TID (Day 15 of antibiotics) - pain management with Tylenol prn - pt encouraged to take pain medication if needed - Oxycodone D/Parish 03/22/17 - WBAT # NIDDM - BGMs - Novolog SSI - Levemir 8U BID D/Parish - Metformin started yesterday - Glipizide added today # htn - continue Lisinopril and Norvasc # hyperkalemia - EKG reveals t wave variation as compared to EKG 03/08/17 - kayexalate 15g given at 12p - NS 1 L bolus given - low potassium diet added # FEN - Fluids: po - Electrolytes: hyperkalemia noted, continue to monitor - Nutrition: diabetic, low sodium, low potassium diet # Prophylaxis - DVT ppx with Heparin - deconditioning ppx with PT - ambulation with surgical boot, WBAT # dispo - pt is clinically optimized for discharge - emergency medicaid pending - letter given to extend VISA 2/2 continued necessary medical treatment - will need 6 weeks antibiotics in total Visit type - Emergency Visit Emergency Visit: Yes ED Registration Date: 03/08/17 Care time: The patient presented to the Emergency Department on the above date and was hospitalized for further evaluation of their emergent condition. - New Patient This patient is new to me today: No - Critical Care Critical Care patient: No
--- NOTE | 2017-03-24 14:24 | PN ---
Teaching Attending Note Name of Resident: Leslie Logan ATTENDING PHYSICIAN STATEMENT Time of evaluation: 11:15 AM I saw and evaluated the patient. I reviewed the resident's note and discussed the case with the resident. I agree with the resident's findings and plan as documented. SUBJECTIVE: Patient seen and examined, no complaints. OBJECTIVE: Vital Signs Period Temp Pulse Resp BP Sys/Borrero Pulse Ox Last 24 Hr 98 F-98.2 F 72-89 16-20 123-147/50-86 100-100 Intake & Output 03/21/17 03/22/17 03/23/17 03/24/17 23:59 23:59 23:59 23:59 Intake Total 50 1400 1450 350 Output Total 300 Balance 50 1100 1450 350 General: sitting in bed in no acute distress Extremities: right foot dressing with surgical shoe Home Medication List Medication Instructions Recorded Confirmed Type Metformin HCl 500 mg PO BID 03/08/17 03/08/17 History Active Medications Generic Name Dose Route Start Last Admin Trade Name Freq PRN Reason Stop Dose Admin Acetaminophen 650 mg 03/11/17 18:20 03/11/17 20:47 Tylenol - PO 650 mg Q4H PRN Administration FEVER OR PAIN Amlodipine Besylate 5 mg 03/12/17 14:00 03/24/17 10:11 Norvasc - PO 5 mg DAILY MONTEZ Administration Glipizide 2.5 mg 03/24/17 07:00 03/24/17 06:52 Glucotrol - PO 2.5 mg BID@0700,1630 MONTEZ Administration Heparin Sodium (Porcine) 5,000 unit 03/08/17 18:00 03/24/17 10:11 Heparin - SQ 5,000 unit Q8H-IV MONTEZ Administration CEFTRIAXONE IN IS-OSM DEXTROSE 2 gm in 50 mls @ 100 mls/hr 03/13/17 13:00 11/01 10:58 Ceftriaxone 2 Gm-D5w Bag IVPB 100 mls/hr DAILY MONTEZ Administration Sodium Chloride 1,000 mls @ 1,000 mls/hr 03/24/17 13:35 Normal Saline - IV 03/24/17 14:34 ASDIR STA Insulin Aspart 1 vial 03/08/17 16:30 03/24/17 11:54 Novolog Vial Sliding Scale - SQ Not Given ACHS MONTEZ Protocol Metformin HCl 500 mg 03/23/17 16:30 03/24/17 06:52 Glucophage - PO 500 mg BID@0700,1630 MONTEZ Administration Metronidazole 500 mg 03/13/17 14:00 03/24/17 06:52 Flagyl - PO 500 mg TID MONTEZ Administration Laboratory Results - last 24 hr 03/23/17 03/23/17 03/24/17 16:43 22:43 06:54 Sodium Potassium Chloride Carbon Dioxide Anion Gap BUN Creatinine POC Glucometer 135 228 126 Random Glucose Calcium 03/24/17 03/24/17 07:00 11:53 Sodium 137 Potassium 5.4 H Chloride 102 Carbon Dioxide 29 Anion Gap 6 L BUN 24 H D Creatinine 1.2 POC Glucometer 140 Random Glucose 132 H Calcium 9.4 Microbiology 03/11/17 12:40 Wound Gram Stain - Final 03/11/17 12:40 Wound Wound Culture - Final NO GROWTH AFTER 48 HOURS INCUBATION 03/08/17 11:34 Blood - Peripheral Venous Blood Culture - Final NO GROWTH AFTER 5 DAYS INCUBATION 03/08/17 11:34 Blood - Peripheral Venous Blood Culture - Final NO GROWTH AFTER 5 DAYS INCUBATION 03/08/17 18:50 Foot - Right Plantar Gram Stain - Final 03/08/17 18:50 Foot - Right Plantar Wound Culture - Final Morganella Morganii Proteus Mirabilis Enterococcus Faecalis 03/08/17 21:00 Foot - Right Dorsum Gram Stain - Final 03/08/17 21:00 Foot - Right Dorsum Wound Culture - Final Morganella Morganii Proteus Mirabilis Enterococcus Faecalis Staphylococcus Aureus Streptococcus Viridans ASSESSMENT AND PLAN: 56 yo M with NIDDM, comes with Right diabetic foot ulcer and cellulitis and likely osteomyelitis -Right 1st digit osteomyelitis and abscess/celullitis with gas forming organism , s/p I&D on 03/08 and 1st digit amputation 03/11 -Right foot sole ulcer s/p debridement -IDDM -HTN -Hyperkalemia, recurrent -Pseudohyponatremia, resolved Plan: ceftriaxone IV and flagyl PO day . Ambulation with surgical boot, PT, WBAT. Off narcotics. recurrent hyperkalemia, EKG reviewed, 1 L IVF bolus, kayexalate x 1, repeat K later today, Hold ACei for now. Low K diet. -Levemir d/clifton. To ensure affordability and compliance, started on metformin 500 mg BID (started 03/23) and glipizide 2.5 mg BID (started today) to see if able to tolerate and blood sugars stable., A1c 12.2, diabetic education. ISS, diabetic diet -Continue norvasc, hold lisinopril -DVTTPPX dispo pending medicaid and outpatient antibiotic arrangements. Letter was given earlier for embassy to extend patient's visa
[2017-03-24] MEDS ORDERED: INSULIN (NOVOLOG) ASPART 100 UNITS/ML 10ML VIAL ONE (21:08)
[2017-03-25] MEDS: HEPARIN NA (PORCINE) 5,000 UNITS/ML 1ML VIAL SQ SCH ×3 (02:57→17:43)
[2017-03-25] MEDS: glipiZIDE 5 MG TABLET (FP) PO SCH ×2 (06:46→17:41)
[2017-03-25] MEDS: metFORMIN HCL 500 MG TABLET (FP) PO SCH ×2 (06:46→17:41)
[2017-03-25] MEDS: metroNIDAZOLE 250 MG TABLET PO SCH ×3 (06:46→17:42)
[2017-03-25] MEDS: INSULIN SLIDING SCALE (NOVOLOG) 1 VIAL SQ SCH ×3 (06:52→17:41)
[2017-03-25 07:59] LABS: ANION GAP 10 (8-16); BLOOD UREA NITROGEN 25 mg/dL (7-18); CALCIUM 8.9 mg/dL (8.5-10.1); CHLORIDE 105 mmol/L (98-107); CO2 25 mmol/L (21-32); CREATININE 1.3 mg/dL (0.7-1.3); GLUCOSE,RANDOM 119 mg/dL (74-106); POTASSIUM 4.8 mmol/L (3.5-5.1); SODIUM 140 mmol/L (136-145)
[2017-03-25] MEDS: CEFTRIAXONE IN IS-OSM DEXTROSE 2 GM/50 ML BAG IVPB SCH (11:26)
[2017-03-25] MEDS: amLODIPine BESYLATE 5 MG TABLET (FP) PO SCH (11:34)
[2017-03-25] MEDS ORDERED: PICC LINE 8 ML FLUSH PROTOCOL IVPUSH PRN (13:51)
--- NOTE | 2017-03-25 14:43 | PN ---
Teaching Attending Note Name of Resident: Leslie Logan ATTENDING PHYSICIAN STATEMENT I saw and evaluated the patient. I reviewed the resident's note and discussed the case with the resident. I agree with the resident's findings and plan as documented. SUBJECTIVE:states he has no pain. denies Cp, SOB or fevers OBJECTIVE: Last Vital Signs Temp Pulse Resp BP Pulse Ox 98.2 F 75 18 146/74 100 03/25/17 11:34 03/25/17 11:34 03/25/17 11:34 03/25/17 11:34 03/24/17 21:00 General NAD ASSESSMENT AND PLAN: 56 yo M with NIDDM, comes with Right diabetic foot ulcer and cellulitis and likely osteomyelitis. 1. R 1st digit OM with gas forming organism-s/p 1st digit amputation 03/11. on Ceftriaxone IV and flagyl po day 16. will need 6 weeks total. ambulation with surgical boot. PICC line today. PT. WBAT 2. DM- A1c 12.2.improved. switched to metformin and glipizide as pt will be unable to afford insulin at home. sugars controlled. will need to bring sugar log with him to PMD appt. nutritional teaching 3. HTN-controlled. cont lisinopril and norvasc. titrate to optimize control 4. hyperkalemia- resolved 5. pseudohyponatremia- resolved 6. DVT ppx- hep sq 7. medically optimized for discharge. PICC line today. will come to infusion center daily for IV abx. will need 6 weeks total., wound care in wound care clinic
--- NOTE | 2017-03-25 16:03 | CONSULT ---
Consult - text type - Consultation Consultation Note: Patient is 14 days post op. No pain. VSS. Tmax 98.2 vsgi, +retention sutures intact right foot, -drainage-mal odor, normal post op Sutures were removed today. Betadine irrigation of wound from dorsal to plantar. Sterile dressing applied. Patient may be dc from hospital if ok with medicine. Needs vns at home for local wound care of right foot. Antibiotics as per ID & Medicine. CBC with diff, esr tomorrow. will follow till dc.
--- NOTE | 2017-03-25 16:52 | DS ---
Physical Exam: SUBJECTIVE: Patient seen and examined. Pt feels well and ready to go home. Pt denies chest pain, sob, abdominal pain, fever, chills. OBJECTIVE: Vital Signs Period Temp Pulse Resp BP Sys/Borrero Pulse Ox Last 24 Hr 98.1 F-98.2 F 75-84 16-20 118-146/74-86 100-100 PHYSICAL EXAM GENERAL: The patient is awake, alert, and fully oriented, in no acute distress. LUNGS: Breath sounds equal, clear to auscultation bilaterally, no wheezes, no crackles, no accessory muscle use. HEART: Regular rate and rhythm, S1, S2 without murmur, rub or gallop. ABDOMEN: Soft, nontender, nondistended. EXTREMITIES: Right foot wrapped in dressing CDI, able to move toes. Left LE warm, well-perfused, no edema. PSYCH: Normal mood, normal affect. LABS Laboratory Results - last 24 hr 03/24/17 03/24/17 03/24/17 17:17 20:15 21:12 Sodium Potassium 5.1 Chloride Carbon Dioxide Anion Gap BUN Creatinine POC Glucometer 195 154 Random Glucose Calcium 03/25/17 03/25/17 03/25/17 06:00 06:51 11:25 Sodium 140 Potassium 4.8 Chloride 105 Carbon Dioxide 25 Anion Gap 10 BUN 25 H Creatinine 1.3 POC Glucometer 122 145 Random Glucose 119 H Calcium 8.9 HOSPITAL COURSE: Date of Admission:03/08/17 Date of Discharge: 03/25/17 56yo M with PMH of NIDDM, presents with Right diabetic foot ulcer and cellulitis /osteomyelitis. Pt received amputation of Right great toe on 03/11/[address] Slater. Sutures were removed today. Pt receiving IV antibiotics for osteomyelitis. Pt received PICC line today to continue IV antibiotics as outpt. Pt had 2 episodes of hyperkalemia while here, once on adm and once yesterday. Pt received counseling from Registered Dietitian regarding limiting potassium in diet, as well as diabetic diet training. 03/08/17 Right LE MRI -> Abnormal signal intensity changes compatible with osteomyelitis of the proximal and distal phalanges of the great toe with extensive perifocal soft tissue swelling compatible with cellulitis. There is extensive soft tissue swelling surrounding the distal phalanx of the great toe with the low signal intensity foci compatible with a gas-forming organism and the possibility of evolving subcutaneous abscess is raised. The findings are also compatible with cellulitis surrounding the distal aspect of the great toe. 03/08/17 Right foot xray -> There is some loss of bone density in the medial aspect of the distal first metatarsal. There are degenerative toe changes. There may be soft tissue disruption by the base of the metatarsals in the lateral view. 03/08/17 CXR -> no acute chest pathology 03/14/17 Right foot xray -> s/p amputation of Right first proximal/distal phalanx. No evidence of destructive changes. No acute fracture seen. 03/16/17 Right heel xray -> No acute pathology. 03/11/17 Echo -> Left ventricular size, thickness, and function normal. Microbiology 03/11/17 12:40 Wound Gram Stain - Final 03/11/17 12:40 Wound Wound Culture - Final NO GROWTH AFTER 48 HOURS INCUBATION 03/08/17 11:34 Blood - Peripheral Venous Blood Culture - Final NO GROWTH AFTER 5 DAYS INCUBATION 03/08/17 11:34 Blood - Peripheral Venous Blood Culture - Final NO GROWTH AFTER 5 DAYS INCUBATION 03/08/17 18:50 Foot - Right Plantar Gram Stain - Final 03/08/17 18:50 Foot - Right Plantar Wound Culture - Final Morganella Morganii Proteus Mirabilis Enterococcus Faecalis 03/08/17 21:00 Foot - Right Dorsum Gram Stain - Final 03/08/17 21:00 Foot - Right Dorsum Wound Culture - Final Morganella Morganii Proteus Mirabilis Enterococcus Faecalis Staphylococcus Aureus Streptococcus Viridans Pt walked 75 ft with PT on 03/24/17. Ambulation with surgical boot, and WBAT. Pt stable for discharge home, with daily visits to the hospital through 04/23/17 for continued IV antibiotic treatment. Minutes to complete discharge: 35 <Leslie Logan - Last Filed: 03/25/17 16:35> Physical Exam: arranged for pt to come to infusion center daily for ceftriaxone and will take flagyl po for a total of 6 weeks <Neena Sheppard - Last Filed: 03/26/17 08:54> Discharge Summary Reason For Visit: DIABETIC FOOT ULCER Current Active Problems Diabetic foot ulcer (Acute) Diabetic ulcer of ankle associated with diabetes mellitus due to underlying condition (Acute) HTN (hypertension) (Acute) Hyperkalemia (Acute) Osteomyelitis (Acute) Diabetes (Chronic) - Home Medications Comprehensive Discharge Medication List: Ambulatory Orders Metformin HCl 500 mg PO BID 03/08/17 Ceftriaxone in Is-Osm Dextrose [Ceftriaxone 2 gm-D5w Bag] 2 gm IVPB DAILY #35 ml 03/19/17 Acetaminophen [Tylenol .Regular Strength -] 650 mg PO Q4H PRN tablet 03/25/17 Amlodipine Besylate [Norvasc -] 5 mg PO DAILY #30 tablet 03/25/17 Glipizide [Glucotrol -] 2.5 mg PO BID@0700,1630 #60 tablet 03/25/17 Lisinopril [Prinivil] 10 mg PO DAILY #30 tablet 03/25/17 Metronidazole [Flagyl -] 500 mg PO TID #88 tablet 03/25/17 Picc Line Flush [Picc Line Flush -] 8 ml IVPUSH PRN PRN ml 03/25/17 <Leslie Logan - Last Filed: 03/25/17 16:35> - Home Medications Comprehensive Discharge Medication List: Ambulatory Orders Metformin HCl 500 mg PO BID 03/08/17 Ceftriaxone in Is-Osm Dextrose [Ceftriaxone 2 gm-D5w Bag] 2 gm IVPB DAILY #35 ml 03/19/17 Acetaminophen [Tylenol .Regular Strength -] 650 mg PO Q4H PRN tablet 03/25/17 Amlodipine Besylate [Norvasc -] 5 mg PO DAILY #30 tablet 03/25/17 Glipizide [Glucotrol -] 2.5 mg PO BID@0700,1630 #60 tablet 03/25/17 Lisinopril [Prinivil] 10 mg PO DAILY #30 tablet 03/25/17 Metronidazole [Flagyl -] 500 mg PO TID #88 tablet 03/25/17 Picc Line Flush [Picc Line Flush -] 8 ml IVPUSH PRN PRN ml 03/25/17 <Neena Sheppard - Last Filed: 03/26/17 08:54> Condition: Improved - Instructions Diet, Activity, Other Instructions: You were treated for a diabetic foot ulcer. You received an amputation of your Right great toe on 03/11/17, by Dr. Slater. You were found to have infection of the bones in your foot and will require 6 weeks of IV antibiotics. You will be sent home with a Peripherally Inserted Central Catheter (PICC) line, and you will come back to the hospital everyday (through 04/23/17) to receive your required IV antibiotics. Only ambulate with surgical shoe, place your weight on the heel of the foot. New medications include: - Flagyl (antibiotic) - take 3 times daily through 04/23/17 - Lisinopril (for high blood pressure) - take once daily - Norvasc (for high blood pressure) - take once daily - Glipizide (for diabetes) - take twice daily Please resume your home medication of Metformin as prescribed. Follow-ups: - with your Primary Care Doctor (the contact information for our Clinic/Dr. Oakes is attached if you do not have a PCP) in 1 week. Check your blood glucose everyday and keep a log of the values. Bring this log to your PCP appointment. - with your Insulation Batting Machine Operator (Dr. Slater) in 2 weeks. - care for your foot wound with betadine and dressing changes daily. Please return to the Emergency Department if you experience persistent or increased foot/leg pain, fever, infection (redness/pain) to the PICC site, or for any medical emergency. Referrals: Chao Oakes MD [Staff Physician] - 1 Week Trevor Slater DPM [Staff Physician] - 2 Weeks Disposition: HOME This patient is new to me today: No Emergency Visit: Yes ED Registration Date: 03/08/17 Care time: The patient presented to the Emergency Department on the above date and was hospitalized for further evaluation of their emergent condition. Critical Care patient: No - Discharge Referral Referred to [facility] Med P.C.: No <Leslie Logan - Last Filed: 03/25/17 16:35>
[2017-03-25 17:52] VITALS: BP 145/75; PULSE 91; TEMP 97.9
[2017-03-25] MEDS ORDERED: PT OWN MED DRAWER 7, Y5N ONE (19:59)
== END 2017-03-25 20:00 | disposition home or self-care (01) | DRG 314 ==
LOC: JER 09:59 → JERBED 13:50 → J8W 15:56
PROVIDERS: ADMIT Hospitalist; ATTEND Internal Medicine
PROC: 0J9Q0ZZ Drainage of Right Foot Subcutaneous Tissue and Fascia, Open Approach (ICD-10-PCS; 2017-03-08)
PROC: 0KBV0ZZ Excision of Right Foot Muscle, Open Approach (ICD-10-PCS; 2017-03-11)
PROC: 0Y6P0Z1 Detachment at Right 1st Toe, High, Open Approach (ICD-10-PCS; principal; 2017-03-11 11:15)
PROC: 0QBQ0ZZ Excision of Right Toe Phalanx, Open Approach (ICD-10-PCS; 2017-03-11 11:15)
PROC: 02HV33Z Insertion of Infusion Device into Superior Vena Cava, Percutaneous Approach (ICD-10-PCS; 2017-03-25)
DX: E11.621 Type 2 diabetes mellitus with foot ulcer (principal); E11.69 Type 2 diabetes mellitus with other specified complication; E11.52 Type 2 diabetes mellitus with diabetic peripheral angiopathy with gangrene; M86.171 Other acute osteomyelitis, right ankle and foot; E87.5 Hyperkalemia; E87.1 Hypo-osmolality and hyponatremia; L03.115 Cellulitis of right lower limb; E11.65 Type 2 diabetes mellitus with hyperglycemia; D50.9 Iron deficiency anemia, unspecified
CPT/HCPCS: 36415; 36569; 71020-TC; 73630-TC-RT; 73650-TC-RT; 73720-TC; 77001-TC; 80048; 80053; 81003; 81015; 82728; 82962; 83036; 83540; 83550; 83735; 84100; 84132; 84466; 85025; 85027; 85651; 86140; 87040; 87070; 87186; 87205; 87389; 88305-TC; 88311-TC; 90688; 93005; 93010; 93306-TC; 97116-GP; 97161-GP; 99283-25; C1751; G0008; J1644

== ENCOUNTER 2017-03-26 11:56 | Day surgery (SDC) | payer SELFPAY ==
[2017-03-26 12:34] VITALS: TEMP 98.5
[2017-03-26 13:02] VITALS: BP 130/70; PULSE 80
[2017-03-26] MEDS ORDERED: CEFTRIAXONE 2 GM in DEXTROSE 5%-WATER - 100 ML IVPB ONE (13:45)
== END 2017-03-26 14:00 | disposition home or self-care (01) ==
LOC: JINFUSION 11:56
PROVIDERS: ATTEND Internal Medicine
CPT/HCPCS: 96365

== ENCOUNTER 2017-03-27 11:28 | Day surgery (SDC) | payer OTHER ==
[2017-03-27 13:17] VITALS: BP 136/76; PULSE 88; TEMP 97.9
== END 2017-03-27 12:30 | disposition home or self-care (01) ==
LOC: JINFUSION 11:28
PROVIDERS: ATTEND Internal Medicine
DX: M86.171 Other acute osteomyelitis, right ankle and foot (principal); L03.115 Cellulitis of right lower limb; E11.69 Type 2 diabetes mellitus with other specified complication
CPT/HCPCS: 96365

== ENCOUNTER → 2017-03-28 | Day surgery (SDC) | payer SELFPAY ==
[~2017-03-28] MED LIST: cefTRIAXone SODIUM 1 GM VIAL ONE
[2017-03-28 15:32] VITALS: TEMP 98.4
[2017-03-28 15:33] VITALS: BP 136/70; PULSE 86
== END | disposition home or self-care (01) ==
LOC: JASU-ENDO 12:02
PROVIDERS: ATTEND Internal Medicine
DX: M86.171 Other acute osteomyelitis, right ankle and foot (principal); L03.115 Cellulitis of right lower limb; E11.69 Type 2 diabetes mellitus with other specified complication
CPT/HCPCS: 96365

== ENCOUNTER 2017-03-29 14:25 | Day surgery (SDC) | payer OTHER ==
[2017-03-29] MEDS ORDERED: CEFTRIAXONE IN IS-OSM DEXTROSE 2 GM/50 ML BAG IVPB ONE (15:00)
[2017-03-29 15:30] VITALS: TEMP 98
[2017-03-29 18:09] VITALS: BP 130/72; PULSE 87
== END 2017-03-29 15:58 | disposition home or self-care (01) ==
LOC: JINFUSION 14:25 → J7W 14:25 → JINFUSION 15:58
PROVIDERS: ATTEND Internal Medicine
DX: M86.171 Other acute osteomyelitis, right ankle and foot (principal); L03.115 Cellulitis of right lower limb; E11.69 Type 2 diabetes mellitus with other specified complication
CPT/HCPCS: 96365

== ENCOUNTER 2017-03-30 09:05 | Day surgery (SDC) | payer OTHER ==
[2017-03-30 10:13] VITALS: BP 141/82; PULSE 90; TEMP 97.9
[2017-03-30] MEDS ORDERED: CEFTRIAXONE IN IS-OSM DEXTROSE 2 GM/50 ML BAG IVPB ONE (10:30)
== END 2017-03-30 10:55 | disposition home or self-care (01) ==
LOC: JINFUSION 09:05 → J7W 09:06 → JINFUSION 10:55
PROVIDERS: ATTEND Internal Medicine
DX: M86.171 Other acute osteomyelitis, right ankle and foot (principal); L03.115 Cellulitis of right lower limb; E11.69 Type 2 diabetes mellitus with other specified complication
CPT/HCPCS: 96365; 96367

== ENCOUNTER 2017-03-31 15:51 | Day surgery (SDC) | payer OTHER ==
[~2017-03-31 15:51] MED LIST changes: +CEFTRIAXONE IN IS-OSM DEXTROSE 2 GM/50 ML BAG IVPB ONE; -cefTRIAXone SODIUM 1 GM VIAL ONE
[2017-03-31 19:07] VITALS: BP 141/82; PULSE 82; TEMP 98
== END 2017-03-31 22:26 | disposition home or self-care (01) ==
LOC: JINFUSION 15:51 → J7W 15:53 → JINFUSION 22:26
PROVIDERS: ATTEND Internal Medicine
DX: M86.171 Other acute osteomyelitis, right ankle and foot (principal); L03.115 Cellulitis of right lower limb; E11.69 Type 2 diabetes mellitus with other specified complication
CPT/HCPCS: 96365

== ENCOUNTER 2017-04-01 11:42 | Day surgery (SDC) | payer SELFPAY ==
[2017-04-01 12:10] VITALS: TEMP 98.7
[2017-04-01] MEDS ORDERED: CEFTRIAXONE IN IS-OSM DEXTROSE 2 GM/50 ML BAG IVPB ONE (12:30)
[2017-04-01 13:17] VITALS: BP 130/79; PULSE 71
== END 2017-04-01 13:19 | disposition home or self-care (01) ==
LOC: JINFUSION 11:42
PROVIDERS: ATTEND Internal Medicine
DX: M86.171 Other acute osteomyelitis, right ankle and foot (principal); L03.115 Cellulitis of right lower limb; E11.69 Type 2 diabetes mellitus with other specified complication
CPT/HCPCS: 96365

== ENCOUNTER 2017-04-02 08:29 | Day surgery (SDC) | payer OTHER ==
[2017-04-02 08:55] VITALS: TEMP 98.5
[2017-04-02] MEDS ORDERED: CEFTRIAXONE IN IS-OSM DEXTROSE 2 GM/50 ML BAG IVPB ONE (09:00)
[2017-04-02 10:09] VITALS: BP 149/77; PULSE 90
== END 2017-04-02 10:16 | disposition home or self-care (01) ==
LOC: JINFUSION 08:29
PROVIDERS: ATTEND Internal Medicine
DX: M86.171 Other acute osteomyelitis, right ankle and foot (principal); L03.115 Cellulitis of right lower limb; E11.69 Type 2 diabetes mellitus with other specified complication
CPT/HCPCS: 96365

== ENCOUNTER 2017-04-03 12:00 | Day surgery (SDC) | payer OTHER ==
[2017-04-03] MEDS ORDERED: CEFTRIAXONE IN IS-OSM DEXTROSE 2 GM/50 ML BAG IVPB ONE (13:00)
[2017-04-03 13:53] VITALS: BP 139/78; PULSE 81; TEMP 98
== END 2017-04-03 13:00 | disposition home or self-care (01) ==
LOC: JINFUSION 12:00
PROVIDERS: ATTEND Internal Medicine
DX: M86.171 Other acute osteomyelitis, right ankle and foot (principal); L03.115 Cellulitis of right lower limb; E11.69 Type 2 diabetes mellitus with other specified complication
CPT/HCPCS: 82962; 96365

== ENCOUNTER 2017-04-04 12:25 | Day surgery (SDC) | payer OTHER ==
[2017-04-04 12:49] VITALS: TEMP 98.2
[2017-04-04] MEDS ORDERED: CEFTRIAXONE IN IS-OSM DEXTROSE 2 GM/50 ML BAG IVPB ONE (13:00)
[2017-04-04 15:06] VITALS: BP 141/88; PULSE 81
== END 2017-04-04 14:30 | disposition home or self-care (01) ==
LOC: JINFUSION 12:25
PROVIDERS: ATTEND Internal Medicine
DX: M86.171 Other acute osteomyelitis, right ankle and foot (principal); L03.115 Cellulitis of right lower limb; E11.69 Type 2 diabetes mellitus with other specified complication
CPT/HCPCS: 82962; 96365

== ENCOUNTER 2017-04-04 14:27 | Emergency (ER) | payer OTHER ==
--- NOTE | 2017-04-04 14:30 | PDOC ---
Rapid Medical Evaluation Time Seen by Provider: 04/04/17 14:30 Medical Evaluation: Allergies Allergy/AdvReac Type Severity Reaction Status Date / Time No Known Allergies Allergy Verified 03/08/17 10:06 04/04/17 14:30 I have performed a brief in-person evaluation of this patient. The patient presents with a chief complaint of: Hyperglycemia, BG 400+ at home. H/o IDDM, s/p R great toe amp, s/p recent admission for osteo, currently receiving daily out-pt visits here for IV ceftriaxone (to complete 04/23/17), also on po flagyl Pertinent physical exam findings:Unremarkable I have ordered the following:labs The patient will proceed to the ED for further evaluation.
[2017-04-04 14:33] VITALS: BP 159/94; PULSE 95; TEMP 98.6; BMI 22.1
[2017-04-04 15:14] LABS: BASO % 0.5 % (0-2.0); EOS % 2.3 % (0-4.5); HEMATOCRIT 33.5 % (35.4-49); HEMOGLOBIN 11.1 GM/dL (11.7-16.9); LYMPH % 44.4 % (8-40); MCH 26.6 pg (25.7-33.7); MEAN CELL VOLUME 80.4 fl (80-96); MEAN PLT VOLUME 8.5 fl (7.5-11.1); NEUT % 44.8 % (42.8-82.8); PLATELET COUNT 166 K/MM3 (134-434); RBC 4.16 M/mm3 (4.00-5.60); RDW 15.1 % (11.9-15.9); WHITE BLOOD COUNT 5.2 K/mm3 (4.0-10.0)
[2017-04-04 15:16] LABS: URINE APPEARANCE CLEAR; URINE BILIRUBIN NEGATIVE (NEGATIVE); URINE BLOOD NEGATIVE (NEGATIVE); URINE COLOR COLORLESS; URINE GLUCOSE (UA) 3+ (NEGATIVE); URINE KETONE NEGATIVE (NEGATIVE); URINE LEUK ESTERASE NEGATIVE (NEGATIVE); URINE NITRITE NEGATIVE (NEGATIVE); URINE PROTEIN NEGATIVE (NEGATIVE); URINE UROBILINOGEN NEGATIVE mg/dL (0.2-1.0)
[2017-04-04 15:45] LABS: ALBUMIN 3.3 g/dl (3.4-5.0); ALK PHOS 72 U/L (45-117); ANION GAP 9 (8-16); BILIRUBIN,TOTAL 0.4 mg/dL (0.2-1.0); BLOOD UREA NITROGEN 17 mg/dL (7-18); CALCIUM 8.4 mg/dL (8.5-10.1); CHLORIDE 92 mmol/L (98-107); CO2 30 mmol/L (21-32); CREATININE 1.3 mg/dL (0.7-1.3); POTASSIUM 4.5 mmol/L (3.5-5.1); SGOT/AST 23 U/L (15-37); SGPT/ALT 28 U/L (12-78); SODIUM 131 mmol/L (136-145); TOT PROT 8.1 g/dl (6.4-8.2)
[2017-04-04 15:47] LABS: GLUCOSE,RANDOM 395 mg/dL (74-106)
[2017-04-04] MEDS ORDERED: SODIUM CHLORIDE 0.9% 1000 ML INFUS.BAG IV ONE ×2 (15:47→18:55)
--- NOTE | 2017-04-04 16:10 | PDOC ---
Attending Attestation - Resident Resident Name: Coleen Estebanica - HPI HPI: 04/05/17 18:56 Pt presents to the ED complaining of hyperglycemia without associated symptoms. PAtient is a known diabetic who has been unable to afford his medications. - Physicial Exam PE: 04/05/17 18:56 Agree with resident exam. PAtient is well appearing and in no acute distress. Lungs are clear. Abdomen is non tender. - Medical Decision Making 04/05/17 18:57 Pt presents to the Ed with hyperglycemia without DKA. WIll treat with IV hydration and reassess.
--- NOTE | 2017-04-04 16:15 | PDOC ---
History of Present Illness - General Chief Complaint: Blood Sugar Problem Stated Complaint: BLOOD SUGAR PROBLEM Time Seen by Provider: 04/04/17 14:30 History Source: Patient - History of Present Illness Initial Comments: 04/04/17 18:45 Patient is a 56 y.o. male with a PMH of NIDDM, osteomyelitis (currently on IV Abx therapy) who presents to our ED today after a fingerstick showed a BS 400. Patient notes he was recently discharged from our facility on 03/25/17 for osteomyelitis at which time he was given outpatient prescriptions for Metformin and Glipizide however he did not take the medications. Patient denies any abdominal pain, nausea/vomiting. NKDA PMD: None - will refer to IM clinic Past History - Past Medical History Allergies/Adverse Reactions: Allergies Allergy/AdvReac Type Severity Reaction Status Date / Time No Known Allergies Allergy Verified 04/04/17 14:30 Home Medications: Ambulatory Orders Metformin HCl 500 mg PO BID 03/08/17 Ceftriaxone in Is-Osm Dextrose [Ceftriaxone 2 gm-D5w Bag] 2 gm IVPB DAILY #35 ml 03/19/17 Acetaminophen [Tylenol .Regular Strength -] 650 mg PO Q4H PRN tablet 03/25/17 Amlodipine Besylate [Norvasc -] 5 mg PO DAILY #30 tablet 03/25/17 Glipizide [Glucotrol -] 2.5 mg PO BID@0700,1630 #60 tablet 03/25/17 Lisinopril [Prinivil] 10 mg PO DAILY #30 tablet 03/25/17 Metronidazole [Flagyl -] 500 mg PO TID #88 tablet 03/25/17 Picc Line Flush [Picc Line Flush -] 8 ml IVPUSH PRN PRN ml 03/25/17 COPD: No Diabetes: Yes HTN: Yes - Suicide/Smoking/Psychosocial Hx Smoking History: Never smoked Have you smoked in the past 12 months: No Hx Alcohol Use: No Drug/Substance Use Hx: No Substance Use Type: None Hx Substance Use Treatment: No Review of Systems - Review of Systems Constitutional: No: Chills, Fever HEENTM: No: Blurred Vision Respiratory: No: Shortness of Breath Cardiac (ROS): No: Chest Pain ABD/GI: No: Constipated, Diarrhea, Nausea, Vomiting : No: Burning, Dysuria *Physical Exam - Vital Signs Last Vital Signs Temp Pulse Resp BP Pulse Ox 98.6 F 95 H 18 159/94 99 04/04/17 14:30 04/04/17 14:30 04/04/17 14:30 04/04/17 14:30 04/04/17 14:30 - Physical Exam General Appearance: Yes: Nourished, Appropriately Dressed HEENT: positive: EOMI, IRENE Neck: positive: Trachea midline, Supple Respiratory/Chest: positive: Lungs Clear Cardiovascular: positive: S1, S2 Gastrointestinal/Abdominal: positive: Normal Bowel Sounds, Soft ED Treatment Course - LABORATORY CBC & Chemistry Diagram: 04/04/17 10:10 04/04/17 10:10 - ADDITIONAL ORDERS Additional order review: Laboratory Results 04/04/17 04/04/17 04/04/17 10:10 10:10 10:10 Sodium 131 L Potassium 4.5 Chloride 92 L D Carbon Dioxide 30 Anion Gap 9 BUN 17 D Creatinine 1.3 Creat Clearance w eGFR 57.31 Random Glucose 395 H* D Calcium 8.4 L Total Bilirubin 0.4 D AST 23 D ALT 28 D Alkaline Phosphatase 72 Total Protein 8.1 Albumin 3.3 L D Urine Color Colorless Urine Appearance Clear Urine pH 7.0 Ur Specific [place] 1.002 Urine Protein Negative Urine Glucose (UA) 3+ H Urine Ketones Negative Urine Blood Negative Urine Nitrite Negative Urine Bilirubin Negative Urine Urobilinogen Negative Ur Leukocyte Esterase Negative Acetone, Qual Negative 04/04/17 10:10 RBC 4.16 MCV 80.4 MCHC 33.0 RDW 15.1 MPV 8.5 D Neutrophils % 44.8 Lymphocytes % 44.4 H Monocytes % 8.0 Eosinophils % 2.3 Basophils % 0.5 Medical Decision Making - Medical Decision Making 04/04/17 20:09 Patient is a 56 y.o. male who presents w/hyperglycemia likely 2/2 to non- adherence with oral anti-hyperglycemic medications. No anion gap, K+ wnL, (-) urine ketones. Patient hyperglycemic (300's) s/p 2 L IV NS. Will give 6 units insulin + 1 L IV NS. Patient and patient's friends @ bedside extensively counseled on the importance of adherence to anti-hyperglycemics. Likely disposition is home if BS < 250's. Patient signed out to Dr. Lee (Resident) and Dr. Capellan (Attending). *DC/Admit/Observation/Transfer Diagnosis at time of Disposition: Hyperglycemia - Referrals Referrals: Chao Oakes MD [Staff Physician] - - Patient Instructions Printed Discharge Instructions: DI for Hyperglycemia -- Adult Additional Instructions: Please make an appointment with Dr. Champ Guidry (contact information included) for establishment of primary care. - Post Discharge Activity
[2017-04-04] MEDS ORDERED: SODIUM CHLORIDE 1,000 ML IV STA (16:40)
[2017-04-04] MEDS ORDERED: INSULIN REGULAR HUMAN 100 UNITS/ML *VIAL IVPUSH ONE (18:54)
[2017-04-04] MEDS ORDERED: INSULIN REGULAR HUMAN 100 UNITS/ML *VIAL ONE (19:01)
--- NOTE | 2017-04-04 21:26 | PDOC ---
*Physical Exam - Vital Signs Last Vital Signs Temp Pulse Resp BP Pulse Ox 98.6 F 95 H 18 159/94 99 04/04/17 14:30 04/04/17 14:30 04/04/17 14:30 04/04/17 14:30 04/04/17 14:30 ED Treatment Course - LABORATORY CBC & Chemistry Diagram: 04/04/17 10:10 04/04/17 10:10 - ADDITIONAL ORDERS Additional order review: Laboratory Results 04/04/17 04/04/17 04/04/17 20:25 18:51 10:10 Sodium Potassium Chloride Carbon Dioxide Anion Gap BUN Creatinine Creat Clearance w eGFR POC Glucometer 144.16649 359.15144 Random Glucose Calcium Total Bilirubin AST ALT Alkaline Phosphatase Total Protein Albumin Urine Color Urine Appearance Urine pH Ur Specific [place] Urine Protein Urine Glucose (UA) Urine Ketones Urine Blood Urine Nitrite Urine Bilirubin Urine Urobilinogen Ur Leukocyte Esterase Acetone, Qual Negative 04/04/17 04/04/17 10:10 10:10 Sodium 131 L Potassium 4.5 Chloride 92 L D Carbon Dioxide 30 Anion Gap 9 BUN 17 D Creatinine 1.3 Creat Clearance w eGFR 57.31 POC Glucometer Random Glucose 395 H* D Calcium 8.4 L Total Bilirubin 0.4 D AST 23 D ALT 28 D Alkaline Phosphatase 72 Total Protein 8.1 Albumin 3.3 L D Urine Color Colorless Urine Appearance Clear Urine pH 7.0 Ur Specific [place] 1.002 Urine Protein Negative Urine Glucose (UA) 3+ H Urine Ketones Negative Urine Blood Negative Urine Nitrite Negative Urine Bilirubin Negative Urine Urobilinogen Negative Ur Leukocyte Esterase Negative Acetone, Qual 04/04/17 04/04/17 04/04/17 20:25 18:51 10:10 RBC 4.16 MCV 80.4 MCHC 33.0 RDW 15.1 MPV 8.5 D Neutrophils % 44.8 Lymphocytes % 44.4 H Monocytes % 8.0 Eosinophils % 2.3 Basophils % 0.5 POC Glucometer 144.09829 359.46645 - Medications Given in the ED: ED Medications Discontinued Medications Generic Name Dose Route Start Last Admin Trade Name Freq PRN Reason Stop Dose Admin Sodium Chloride 1,000 mls @ 1,000 mls/hr 04/04/17 16:40 04/04/17 17:52 Normal Saline - IV 04/04/17 17:39 1,000 mls/hr ASDIR STA Administration Insulin Human Regular 6 units 04/04/17 18:54 04/04/17 19:22 Novolin R Vial *For Ivpush Or Iv Drip Only* IVPUSH 04/04/17 18:55 6 units ONCE ONE Administration Sodium Chloride 1,000 ml 04/04/17 15:47 04/04/17 16:22 Normal Saline - IV 04/04/17 15:48 1,000 ml ONCE ONE Administration Sodium Chloride 1,000 ml 04/04/17 18:55 04/04/17 19:23 Normal Saline - IV 04/04/17 18:56 1,000 ml ONCE ONE Administration Medical Decision Making - Medical Decision Making 04/04/17 21:24 Received pt on signout. He is being treated outpatient for osteomyelitis Today sugar is out of control. Pt was treated here or blood sugar; now under control. Pt is feeling better. He is non compliant with his oral DM meds. We spoke to him about the importance of meds through a layout former. He will follow with PMD *DC/Admit/Observation/Transfer Diagnosis at time of Disposition: Hyperglycemia - Referrals Referrals: Chao Oakes MD [Staff Physician] - - Patient Instructions Printed Discharge Instructions: DI for Hyperglycemia -- Adult Additional Instructions: Please make an appointment with Dr. Champ Guidry (contact information included) for establishment of primary care. - Post Discharge Activity
--- NOTE | 2017-04-04 21:32 | PDOC ---
*Physical Exam - Vital Signs Last Vital Signs Temp Pulse Resp BP Pulse Ox 98.6 F 95 H 18 159/94 99 04/04/17 14:30 04/04/17 14:30 04/04/17 14:30 04/04/17 14:30 04/04/17 14:30 ED Treatment Course - LABORATORY CBC & Chemistry Diagram: 04/04/17 10:10 04/04/17 10:10 - ADDITIONAL ORDERS Additional order review: Laboratory Results 04/04/17 04/04/17 04/04/17 20:25 18:51 10:10 Sodium Potassium Chloride Carbon Dioxide Anion Gap BUN Creatinine Creat Clearance w eGFR POC Glucometer 144.71263 359.09164 Random Glucose Calcium Total Bilirubin AST ALT Alkaline Phosphatase Total Protein Albumin Urine Color Urine Appearance Urine pH Ur Specific Richey Urine Protein Urine Glucose (UA) Urine Ketones Urine Blood Urine Nitrite Urine Bilirubin Urine Urobilinogen Ur Leukocyte Esterase Acetone, Qual Negative 04/04/17 04/04/17 10:10 10:10 Sodium 131 L Potassium 4.5 Chloride 92 L D Carbon Dioxide 30 Anion Gap 9 BUN 17 D Creatinine 1.3 Creat Clearance w eGFR 57.31 POC Glucometer Random Glucose 395 H* D Calcium 8.4 L Total Bilirubin 0.4 D AST 23 D ALT 28 D Alkaline Phosphatase 72 Total Protein 8.1 Albumin 3.3 L D Urine Color Colorless Urine Appearance Clear Urine pH 7.0 Ur Specific Richey 1.002 Urine Protein Negative Urine Glucose (UA) 3+ H Urine Ketones Negative Urine Blood Negative Urine Nitrite Negative Urine Bilirubin Negative Urine Urobilinogen Negative Ur Leukocyte Esterase Negative Acetone, Qual 04/04/17 04/04/17 04/04/17 20:25 18:51 10:10 RBC 4.16 MCV 80.4 MCHC 33.0 RDW 15.1 MPV 8.5 D Neutrophils % 44.8 Lymphocytes % 44.4 H Monocytes % 8.0 Eosinophils % 2.3 Basophils % 0.5 POC Glucometer 144.79039 [phone] - Medications Given in the ED: ED Medications Discontinued Medications Generic Name Dose Route Start Last Admin Trade Name Freq PRN Reason Stop Dose Admin Sodium Chloride 1,000 mls @ 1,000 mls/hr 04/04/17 16:40 04/04/17 17:52 Normal Saline - IV 04/04/17 17:39 1,000 mls/hr ASDIR STA Administration Insulin Human Regular 6 units 04/04/17 18:54 04/04/17 19:22 Novolin R Vial *For Ivpush Or Iv Drip Only* IVPUSH 04/04/17 18:55 6 units ONCE ONE Administration Sodium Chloride 1,000 ml 04/04/17 15:47 04/04/17 16:22 Normal Saline - IV 04/04/17 15:48 1,000 ml ONCE ONE Administration Sodium Chloride 1,000 ml 04/04/17 18:55 04/04/17 19:23 Normal Saline - IV 04/04/17 18:56 1,000 ml ONCE ONE Administration *DC/Admit/Observation/Transfer Diagnosis at time of Disposition: Hyperglycemia Osteomyelitis Qualifiers: Osteomyelitis type: unspecified type Osteomyelitis location: unspecified site Qualified Code(s): M86.9 - Osteomyelitis, unspecified Diabetes Qualifiers: Diabetes mellitus type: other specified (including MINDA) Diabetes mellitus complication status: with unspecified complications Diabetes mellitus long-term insulin use: without intermodal customer service use Qualified Code(s): E13.8 - Other specified diabetes mellitus with unspecified complications - Discharge Dispostion Disposition: HOME Condition at time of disposition: Stable - Prescriptions Prescriptions: Glipizide [Glucotrol -] 2.5 mg PO BID@0700,1630 #60 tablet Metformin HCl 500 mg PO BID #60 tablet - Referrals Referrals: Chao Oakes MD [Staff Physician] - - Patient Instructions Printed Discharge Instructions: DI for Hyperglycemia -- Adult Additional Instructions: You were seen in the ER for high blood sugar measured. Please make an appointment with Dr. Champ Guidry (contact information included) for establishment of primary care. Please be sure to take all of your medications as prescribed (including diabetes medications). It is important to have your blood sugar under control because this will help resolve your serious infection. Print Language: SWAZI - Post Discharge Activity
== END 2017-04-04 21:40 | disposition home or self-care (01) ==
LOC: JER 14:27
PROC: 3E0337Z Introduction of Electrolytic and Water Balance Substance into Peripheral Vein, Percutaneous Approach (ICD-10-PCS; principal; 2017-04-04)
PROC: 3E033VG Introduction of Insulin into Peripheral Vein, Percutaneous Approach (ICD-10-PCS; 2017-04-04)
DX: E13.69 Other specified diabetes mellitus with other specified complication (principal); M86.8X9 Other osteomyelitis, unspecified sites; Z79.84 Long term (current) use of oral hypoglycemic drugs; Z91.14 Patient's other noncompliance with medication regimen; Z89.411 Acquired absence of right great toe; I10 Essential (primary) hypertension; Z95.828 Presence of other vascular implants and grafts
CPT/HCPCS: 36415; 80053; 81003; 82009; 82962; 85025; 99282-25

== ENCOUNTER 2017-04-05 14:48 | Day surgery (SDC) | payer OTHER ==
[2017-04-05] MEDS ORDERED: CEFTRIAXONE IN IS-OSM DEXTROSE 2 GM/50 ML BAG IVPB SCH (16:00)
[2017-04-05 17:08] VITALS: BP 130/70; PULSE 79; TEMP 98.2
== END 2017-04-05 16:48 | disposition home or self-care (01) ==
LOC: JINFUSION 14:48 → J7W 14:48 → JINFUSION 16:48
PROVIDERS: ATTEND Internal Medicine
DX: M86.171 Other acute osteomyelitis, right ankle and foot (principal)
CPT/HCPCS: 96365

== ENCOUNTER 2017-04-06 11:00 | Day surgery (SDC) | payer OTHER ==
[2017-04-06] MEDS ORDERED: CEFTRIAXONE IN IS-OSM DEXTROSE 2 GM/50 ML BAG IVPB ONE (11:45)
[2017-04-06 17:22] VITALS: TEMP 98
[2017-04-06 17:31] VITALS: PULSE 80
[2017-04-06 18:41] VITALS: BP 145/86
== END 2017-04-06 15:59 | disposition home or self-care (01) ==
LOC: JINFUSION 11:00 → J7W 11:01 → JINFUSION 15:59
PROVIDERS: ATTEND Internal Medicine
DX: M86.171 Other acute osteomyelitis, right ankle and foot (principal); L03.115 Cellulitis of right lower limb; E11.69 Type 2 diabetes mellitus with other specified complication
CPT/HCPCS: 96365

== ENCOUNTER 2017-04-07 09:26 | Day surgery (SDC) | payer OTHER ==
[2017-04-07 10:12] VITALS: TEMP 98
[2017-04-07] MEDS ORDERED: CEFTRIAXONE IN IS-OSM DEXTROSE 2 GM/50 ML BAG IVPB ONE (10:15)
[2017-04-07 10:25] VITALS: BP 148/73; PULSE 82
== END 2017-04-07 10:25 | disposition home or self-care (01) ==
LOC: JINFUSION 09:26
PROVIDERS: ATTEND Internal Medicine
DX: M86.171 Other acute osteomyelitis, right ankle and foot (principal); L03.115 Cellulitis of right lower limb; E11.69 Type 2 diabetes mellitus with other specified complication
CPT/HCPCS: 96365

== ENCOUNTER 2017-04-08 09:11 | Day surgery (SDC) | payer OTHER ==
[2017-04-08 09:48] VITALS: TEMP 98.8
[2017-04-08 10:51] VITALS: BP 157/90; PULSE 89
[2017-04-08] MEDS ORDERED: CEFTRIAXONE IN IS-OSM DEXTROSE 2 GM/50 ML BAG IVPB ONE (11:00)
== END 2017-04-08 10:45 | disposition home or self-care (01) ==
LOC: JINFUSION 09:11
PROVIDERS: ATTEND Internal Medicine
DX: M86.171 Other acute osteomyelitis, right ankle and foot (principal); L03.115 Cellulitis of right lower limb; E11.69 Type 2 diabetes mellitus with other specified complication
CPT/HCPCS: 96365

== ENCOUNTER 2017-04-09 11:32 | Day surgery (SDC) | payer OTHER ==
[2017-04-09 12:25] VITALS: TEMP 98.4
[2017-04-09 12:43] VITALS: BP 126/78; PULSE 86
[2017-04-09] MEDS ORDERED: CEFTRIAXONE IN IS-OSM DEXTROSE 2 GM/50 ML BAG IVPB ONE (12:45)
== END 2017-04-09 12:49 | disposition home or self-care (01) ==
LOC: JINFUSION 11:32
PROVIDERS: ATTEND Internal Medicine
DX: M86.171 Other acute osteomyelitis, right ankle and foot (principal); L03.115 Cellulitis of right lower limb; E11.69 Type 2 diabetes mellitus with other specified complication
CPT/HCPCS: 96365

== ENCOUNTER 2017-04-10 09:16 | Day surgery (SDC) | payer OTHER ==
[2017-04-10] MEDS ORDERED: CEFTRIAXONE 2 GM in DEXTROSE 5%-WATER - 100 ML IVPB ONE (10:00)
[2017-04-10 10:32] VITALS: BP 145/82; PULSE 88; TEMP 98.6
== END 2017-04-10 10:34 | disposition home or self-care (01) ==
LOC: JINFUSION 09:16
PROVIDERS: ATTEND Internal Medicine
DX: M86.171 Other acute osteomyelitis, right ankle and foot (principal); L03.115 Cellulitis of right lower limb; E11.69 Type 2 diabetes mellitus with other specified complication
CPT/HCPCS: 96365

== ENCOUNTER 2017-04-11 09:08 | Day surgery (SDC) | payer OTHER ==
[2017-04-11] MEDS ORDERED: CEFTRIAXONE IN IS-OSM DEXTROSE 2 GM/50 ML BAG IVPB ONE (10:00)
[2017-04-11 12:56] VITALS: TEMP 97.9
[2017-04-11 12:58] VITALS: BP 136/88; PULSE 80
== END 2017-04-11 10:30 | disposition home or self-care (01) ==
LOC: JINFUSION 09:08
PROVIDERS: ATTEND Internal Medicine
DX: M86.171 Other acute osteomyelitis, right ankle and foot (principal); L03.115 Cellulitis of right lower limb; E11.69 Type 2 diabetes mellitus with other specified complication
CPT/HCPCS: 96365

== ENCOUNTER 2017-04-12 13:14 | Day surgery (SDC) | payer OTHER ==
[2017-04-12] MEDS ORDERED: CEFTRIAXONE IN IS-OSM DEXTROSE 2 GM/50 ML BAG IVPB ONE (13:45)
[2017-04-12 14:15] VITALS: TEMP 98
[2017-04-12 17:01] VITALS: BP 120/82; PULSE 80
== END 2017-04-12 15:00 | disposition home or self-care (01) ==
LOC: J7W 13:14 → JINFUSION 13:14
PROVIDERS: ATTEND Internal Medicine
DX: M86.171 Other acute osteomyelitis, right ankle and foot (principal); L03.115 Cellulitis of right lower limb; E11.69 Type 2 diabetes mellitus with other specified complication
CPT/HCPCS: 96365

== ENCOUNTER 2017-04-13 10:42 | Day surgery (SDC) | payer OTHER ==
[2017-04-13] MEDS ORDERED: CEFTRIAXONE 1 G/50 ML PREMIX 50 ML IVPB ONE (11:30)
[2017-04-13] MEDS ORDERED: CEFTRIAXONE IN IS-OSM DEXTROSE 2 GM/50 ML BAG IVPB ONE (12:00)
[2017-04-13 12:39] VITALS: BP 148/91; PULSE 83; TEMP 98.5
== END 2017-04-13 13:00 | disposition home or self-care (01) ==
LOC: JINFUSION 10:42 → J7W 10:44 → JINFUSION 13:00
PROVIDERS: ATTEND Internal Medicine
DX: M86.171 Other acute osteomyelitis, right ankle and foot (principal); L03.115 Cellulitis of right lower limb; E11.69 Type 2 diabetes mellitus with other specified complication
CPT/HCPCS: 96365

== ENCOUNTER 2017-04-14 12:49 | Day surgery (SDC) | payer OTHER ==
[~2017-04-14 12:49] MED LIST changes: +CEFTRIAXONE 2 GM in DEXTROSE 5%-WATER - 100 ML IVPB ONE; -CEFTRIAXONE IN IS-OSM DEXTROSE 2 GM/50 ML BAG IVPB ONE
[2017-04-14 13:22] VITALS: BP 115/84; PULSE 86; TEMP 97.8
== END 2017-04-14 14:01 | disposition home or self-care (01) ==
LOC: JINFUSION 12:49
PROVIDERS: ATTEND Internal Medicine
DX: M86.171 Other acute osteomyelitis, right ankle and foot (principal); L03.115 Cellulitis of right lower limb; E11.69 Type 2 diabetes mellitus with other specified complication
CPT/HCPCS: 96365

== ENCOUNTER 2017-04-15 10:49 | Day surgery (SDC) | payer OTHER ==
[2017-04-15 11:20] VITALS: BP 141/78; PULSE 85; TEMP 98.1
== END 2017-04-15 12:09 | disposition home or self-care (01) ==
LOC: JINFUSION 10:49
PROVIDERS: ATTEND Internal Medicine
DX: M86.171 Other acute osteomyelitis, right ankle and foot (principal); L03.115 Cellulitis of right lower limb; E11.69 Type 2 diabetes mellitus with other specified complication
CPT/HCPCS: 96365

== ENCOUNTER 2017-04-16 10:40 | Day surgery (SDC) | payer OTHER ==
[~2017-04-16 10:40] MED LIST changes: -CEFTRIAXONE 2 GM in DEXTROSE 5%-WATER - 100 ML IVPB ONE; +CEFTRIAXONE IN IS-OSM DEXTROSE 2 GM/50 ML BAG IVPB ONE
[2017-04-16 11:11] VITALS: BP 139/78; PULSE 82; TEMP 98.3
== END 2017-04-16 11:59 | disposition home or self-care (01) ==
LOC: JINFUSION 10:40
PROVIDERS: ATTEND Internal Medicine
DX: M86.171 Other acute osteomyelitis, right ankle and foot (principal); L03.115 Cellulitis of right lower limb; E11.69 Type 2 diabetes mellitus with other specified complication
CPT/HCPCS: 96365

== ENCOUNTER 2017-04-17 08:55 | Day surgery (SDC) | payer OTHER ==
[2017-04-17] MEDS ORDERED: CEFTRIAXONE IN IS-OSM DEXTROSE 2 GM/50 ML BAG IVPB ONE (09:00)
[2017-04-17 12:10] VITALS: BP 144/76; PULSE 81; TEMP 97.9
== END 2017-04-17 10:10 | disposition home or self-care (01) ==
LOC: JINFUSION 08:55
PROVIDERS: ATTEND Internal Medicine
DX: M86.171 Other acute osteomyelitis, right ankle and foot (principal); L03.115 Cellulitis of right lower limb; E11.69 Type 2 diabetes mellitus with other specified complication
CPT/HCPCS: 96365

== ENCOUNTER 2017-04-18 08:40 | Day surgery (SDC) | payer OTHER ==
[2017-04-18 09:36] VITALS: BP 150/82; PULSE 91; TEMP 98.3
[2017-04-18] MEDS ORDERED: CEFTRIAXONE IN IS-OSM DEXTROSE 2 GM/50 ML BAG IVPB SCH (10:00)
== END 2017-04-18 10:08 | disposition home or self-care (01) ==
LOC: JINFUSION 08:40
PROVIDERS: ATTEND Internal Medicine
DX: M86.171 Other acute osteomyelitis, right ankle and foot (principal); L03.115 Cellulitis of right lower limb; E11.69 Type 2 diabetes mellitus with other specified complication
CPT/HCPCS: 96365

== ENCOUNTER 2017-04-19 12:24 | Day surgery (SDC) | payer OTHER ==
[2017-04-19] MEDS ORDERED: CEFTRIAXONE IN IS-OSM DEXTROSE 2 GM/50 ML BAG IVPB ONE (13:15)
[2017-04-19 13:57] VITALS: BP 144/88; PULSE 87; TEMP 98.2
== END 2017-04-19 13:59 | disposition home or self-care (01) ==
LOC: JINFUSION 12:24 → J7W 12:34 → JINFUSION 13:59
PROVIDERS: ATTEND Internal Medicine
DX: A41.9 Sepsis, unspecified organism (principal); N39.0 Urinary tract infection, site not specified; C85.10 Unspecified B-cell lymphoma, unspecified site
CPT/HCPCS: 96365

== ENCOUNTER 2017-04-20 11:03 | Day surgery (SDC) | payer OTHER ==
[2017-04-20] MEDS ORDERED: CEFTRIAXONE IN IS-OSM DEXTROSE 2 GM/50 ML BAG IVPB ONE (12:15)
[2017-04-20 12:45] VITALS: BP 148/91; PULSE 87; TEMP 98.5
== END 2017-04-20 13:27 | disposition home or self-care (01) ==
LOC: JINFUSION 11:03 → J7W 11:05 → JINFUSION 13:27
PROVIDERS: ATTEND Internal Medicine
DX: A41.9 Sepsis, unspecified organism (principal); N39.0 Urinary tract infection, site not specified; C85.10 Unspecified B-cell lymphoma, unspecified site
CPT/HCPCS: 96365; 96366

== ENCOUNTER 2017-04-21 09:18 | Day surgery (SDC) | payer OTHER ==
[2017-04-21] MEDS ORDERED: CEFTRIAXONE IN IS-OSM DEXTROSE 2 GM/50 ML BAG IVPB ONE (09:30)
[2017-04-21 10:22] VITALS: TEMP 97.9
[2017-04-21 10:25] VITALS: BP 136/82; PULSE 84
== END 2017-04-21 10:31 | disposition home or self-care (01) ==
LOC: JINFUSION 09:18
PROVIDERS: ATTEND Internal Medicine
DX: A41.9 Sepsis, unspecified organism (principal); N39.0 Urinary tract infection, site not specified; C85.10 Unspecified B-cell lymphoma, unspecified site
CPT/HCPCS: 96365

== ENCOUNTER 2017-04-22 09:06 | Day surgery (SDC) | payer OTHER ==
[2017-04-22] MEDS ORDERED: CEFTRIAXONE IN IS-OSM DEXTROSE 2 GM/50 ML BAG IVPB ONE (10:00)
[2017-04-22 12:01] VITALS: BP 146/82; PULSE 82; TEMP 99
== END 2017-04-22 11:25 | disposition home or self-care (01) ==
LOC: JASU-ENDO 09:06 → JINFUSION 09:06 → JASU-ENDO 11:25
PROVIDERS: ATTEND Internal Medicine
DX: A41.9 Sepsis, unspecified organism (principal); N39.0 Urinary tract infection, site not specified; C85.10 Unspecified B-cell lymphoma, unspecified site
CPT/HCPCS: 96365

== ENCOUNTER 2017-04-23 09:02 | Day surgery (SDC) | payer OTHER ==
[2017-04-23 10:59] VITALS: BP 158/88; PULSE 66
[2017-04-23] MEDS ORDERED: CEFTRIAXONE IN IS-OSM DEXTROSE 2 GM/50 ML BAG IVPB ONE (14:45)
== END 2017-04-23 11:59 | disposition home or self-care (01) ==
LOC: JINFUSION 09:02
PROVIDERS: ATTEND Internal Medicine
DX: A41.9 Sepsis, unspecified organism (principal); N39.0 Urinary tract infection, site not specified; C85.10 Unspecified B-cell lymphoma, unspecified site
CPT/HCPCS: 96365